=== PATIENT | female | born 1965 | race Caucasian/White ===

== ENCOUNTER → 2016-10-06 | Outpatient (CLI) | payer OTHER ==
[~2016-10-06] MED LIST: CYCL10TA PO; FIOR1CAP PO; HYDR12.55 PO; IMIT6INJ SC; METH750T PO; NAPR220C PO; TRAMADOL PO; XOLA150S SC
--- NOTE | 2016-10-08 00:27 | ECWPNPC ---
PATIENT NAME: CARMEN RODRIGUEZ : 1965 GENDER: FEMALE VISIT DATE: 10/06/2016 DISCHARGE DATE: 10/06/16 1100 VISIT LOCKED DATE TIME: PHYSICIAN: LEANDER ROSE RESOURCE: LEANDER ROSE REASON FOR APPOINTMENT 1. DISCUSS PT HISTORY OF PRESENT ILLNESS HISTORY OF PRESENT ILLNESS: PAIN THE PATIENT DESCRIBES THE PAIN... FALL RISK SCREENING: SCREENING :NO FALLS IN THE PAST YEAR TODAY'S VISIT: NOTES: RATES PAIN TODAY 8/10. PAIN CENTERED IN LOWER BACK WITH RADIATION DOWN LEG WHILE STANDING. IS MOSTLY PRESENT IN LOW BACK WHEN SEATED. PAIN IS CAUSING POOR SLEEP. NO LOSS OF BOWEL OR BLADDER CONTOL. IS HAVING SIGNIFICANT DIFFICULTY WITH GOING ABOUT ACTIVITIES OF DAILY LIVING.. CURRENT MEDICATIONS TAKING HYDROCHLOROTHIAZIDE 25 MG TABLET 1 TABLET ORALLY EVERY OTHER DAY TAKING XOLAIR 150 MG SOLUTION RECONSTITUTED SUBCUTANEOUS MONTHLY TAKING IMITREX 6 MG/0.5ML SOLUTION SUBCUTANEOUS DIRECTED TAKING ETODOLAC 400 MG TABLET 1 CAPSULE ORALLY TWICE A DAY TAKING ATORVASTATIN CALCIUM 10 MG TABLET 1 TABLET ORALLY ONCE A DAY TAKING [id number] 50-325-40 MG CAPSULE 1 CAPSULE NEEDED ORALLY EVERY 4 HRS TAKING FLUTICASONE PROPIONATE 50 MCG/ACT SUSPENSION 1 SPRAY IN EACH NOSTRIL NASALLY ONCE A DAY TAKING DEPAKOTE 250 MG TABLET DELAYED RELEASE ORALLY TWICE A DAY TAKING TRAMADOL HCL 50 MG TABLET 1 TABLET ORALLY EVERY 6 HRS PRN PAIN MDD=4 TAKING TYLENOL SINUS SEVERE 5-325-200 MG TABLET 2 TABLETS NEEDED ORALLY EVERY 4 HRS TAKING TIZANIDINE HCL 4 MG TABLET 1 TABLET NEEDED ORALLY BEFORE BEDTIME NOT-TAKING FIORICET 50-300-40 MG CAPSULE 1 CAPSULE NEEDED ORALLY DIRECTED DISCONTINUED NORTRIPTYLINE HCL 10 MG CAPSULE 1 CAPSULE ORALLY ONCE A DAY DISCONTINUED VALIUM 5 MG TABLET 1 TABLET ORALLY TAKE ONE TAB AT BEDTIME MDD=1 DISCONTINUED CYCLOBENZAPRINE HCL 10 MG TABLET 1 TABLET ORALLY THREE TIMES A DAY NEEDED DISCONTINUED TRAMADOL HCL 50 MG TABLET 1-2 TABLETS ORALLY EVERY 6 HRS PRN AIN MDD=4 MEDICATION LIST REVIEWED AND RECONCILED WITH THE PATIENT PAST MEDICAL HISTORY MIGRAINES ASTHMA SINUS/PULMONARY INFECTIONS ALLERGIES MILK: DYSPNEA ENVIRONMENTAL: DYSPNEA TOPAMAX: JOINT ACHES LEVAQUIN: ANAPHYLAXIS SOCIAL HISTORY GENERAL: TOBACCO USE ARE YOU A:NONSMOKER LEARNING BARRIERS / SPECIAL NEEDS ORIENTED TO PLAN OF CARE: PATIENT, PAIN MANAGEMENT PATIENT, ORIENTED TO PLAN OF CARE: PATIENT, PAIN MANAGEMENT PATIENT. NEW PATIENT PAIN DIARY TODAY'S VISITNOTES FROM 0-10, WHAT LEVEL IS YOUR PAIN TODAY?0 PAIN CLINIC PFS, CLERGY, PUBLIC HEALTH REFERRALS PFS REFERRAL NEEDED?NO CLERGY REFERRAL NEEDED?NO PUBLIC HEALTH REFERRAL NEEDED?NO WAS THE PROVIDER NOTIFIED OF ANY PERTINENT INFO?NO PFS REFERRAL NEEDED?NO CLERGY REFERRAL NEEDED?NO PUBLIC HEALTH REFERRAL NEEDED?NO WAS THE PROVIDER NOTIFIED OF ANY PERTINENT INFO?NO REVIEW OF SYSTEMS CONSTITUTIONAL: ANY CHANGE IN YOUR MEDICAL CONDITION? NO . CHILLS NO . FEVER NO . INFECTION: DO YOU HAVE NEW INFECTIONS? NO BUT DOES HAVE INCREASED SINUS CONGESTION . DO YOU HAVE HISTORY OF MRSA? NO . MUSCULOSKELETAL: ANY NEW PATTERNS OF PAIN OR NUMBNESS? NO . GASTROENTEROLOGY: ANY NEW CHANGE IN BOWEL CONTROL? NO . GENITOURINARY: ANY NEW CHANGE IN BLADDER CONTROL? NO . IS THERE A CHANCE YOU COULD BE ? NO . HEMATOLOGY/LYMPH: DO YOU TAKE ANY BLOOD THINNERS? (FOR EXAMPLE- COUMADIN, PLAVIX, AGGRENOX, PLATEL, PRADAXA, OR XARELTO) NO . WHEN WAS YOUR LAST DOSE? DATE: TIME: . NEUROLOGY: HAVE YOU FALLEN IN THE PAST 6 MONTHS? YES . ANY NEW EXTREMITY NUMBNESS OR WEAKNESS? NO . CARDIOLOGY: DO YOU HAVE A PACEMAKER OR DEFIBRILLATOR? NO . RESPIRATORY: HAVE YOU BEEN SICK IN THE PAST WEEK? NO . FEVER NO . FLU LIKE SYMPTOMS? NO . COUGH NO . INTEGUMENTARY: DO YOU HAVE ANY RASHES OR OPEN SORES? NO . ALLERGIC/IMMUNO: ARE YOU ALLERGIC TO SHELLFISH OR IV DYE? NO . ANY NEW ALLERGIES? NO . PSYCHIATRIC: DO YOU HAVE THOUGHTS OF HURTING YOURSELF OR SOMEONE ELSE? NO . ARE YOU ABUSED, NEGLECTED, OR IN AN UNSAFE ENVIRONMENT? NO . ENDOCRINOLOGY: ARE YOU DIABETIC? NO . OTHER: DO YOU NEED ANY PRESCRIPTIONS? YES . IF YES, PLEASE LIST: TRAMADOL . ANY NEW PROBLEMS WITH YOUR MEDICATIONS? NO . WHEN DID YOU LAST EAT? ____ . WHEN DID YOU LAST DRINK? ____ . WHAT DID YOU LAST DRINK? ____ . NAME OF PERSON DRIVING YOU HOME? ____ . DO YOU HAVE ANY OTHER QUESTIONS OR CONCERNS NO . REVIEWED BY: PROVIDER: LEANDER CHAPAP . VITAL SIGNS WT 183.6 LBS, HT 62 IN, BMI 33.58 INDEX, BP 129/83 MM HG, HR 94 /MIN, RR 16 /MIN, TEMP 96.0 F, OXYGEN SAT % 96, NA INITIALS TL 1015, REVIEWED BY: CM. EXAMINATION GENERAL EXAMINATION: PSYCHALERT , ORIENTED X 3 , APPROPRIATE MOOD AND AFFECT . LUNGS:CLEAR TO AUSCULTATION BILATERALLY. HEART:HEART RATE REGULAR. MUSCULOSKELETAL:MUSCLE STRENGTH TESTING 5/5 BILATERAL UPPER AND LOWER EXTREMITIES. EXQUISITE TENDERNESS OVER LUMBAR INCISION. EXQUISITE TENDERNESS OVER RIGHT SIJ. TPI OVER RIGHT SACRUM. . 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 START GABAPENTIN TWICE A DAY FOR SHARP SHOOTING ELECTRICAL PAIN UNTIL INJECTION IS FINISHED. CLINICAL NOTES: ISTOP REGISTRY REVIEWED AND DEMNOSTRATES COMPLLIANCE. BRINGS IN MEDICATIONS WHICH IS APPROPRIATE FOR WHAT WAS DISPENSED. RECENT URINE TOXICOLOGY REVIEWED. NO UNAUTHORIZED MEDICATIONS. NO ILLICIT SUBSTANCES AND PRESCRIBED MEDICATIONS WERE PRESENT. PREVENTIVE MEDICINE PAIN CLINIC TEACHING: MEDICATIONS GABAPENTIN- RESTARTING THIS MED. . PROCEDURE TEACHING DISCUSSED WITH PATIENT SCAR NEUROMA PROCEDURE. PROCEDURE CODES FA211 ESTABILISHED PATIENT [facility] CHARGE DISPOSITION & COMMUNICATION FOLLOW UP AFTER INJECTION - SCHEDULE DANIELLE INJECTION (REASON: CHECK AUTH FOR SCAR NEUROMA INJECTION) ELECTRONICALLY SIGNED BY JOSE LEWIS ON 10/07/2016 AT 11:59 AM EDT DISCLAIMER : THIS IS A VISIT SUMMARY EXTRACTED FROM THE [employer] CHART. IT IS NOT A COPY OF THE [employer] PROGRESS NOTE. MTDD
== END ==
LOC: M PAIN 10:00
PROVIDERS: ATTEND Nurse Practitioner Family
DX: Z09 Encounter for follow-up examination after completed treatment for conditions other than malignant neoplasm (principal); G89.29 Other chronic pain; M47.816 Spondylosis without myelopathy or radiculopathy, lumbar region; M79.1 Myalgia; M47.817 Spondylosis without myelopathy or radiculopathy, lumbosacral region; G58.9 Mononeuropathy, unspecified; G43.909 Migraine, unspecified, not intractable, without status migrainosus; J45.909 Unspecified asthma, uncomplicated; Z91.011 Allergy to milk products; Z88.8 Allergy status to other drugs, medicaments and biological substances; Z79.891 Long term (current) use of opiate analgesic; Z79.899 Other long term (current) drug therapy

== ENCOUNTER → 2016-10-14 | Outpatient (CLI) | payer OTHER ==
[~2016-10-14] MED LIST changes: +BUPIVACAINE HCL 0.25% 10 ML VIAL As Ordered ONE; +BUPIVACAINE HCL 0.25% 30 ML VIAL As Ordered ONE; +TRIAMCINOLONE ACETONIDE SUSP 40 MG/ML VIAL (J3301) As Ordered ONE; +diazePAM 5 MG TAB As Ordered ONE; +oxyCODONE 5MG TAB As Ordered ONE
--- NOTE | 2016-10-22 00:40 | ECWPNPC ---
PATIENT NAME: CARMEN RODRIGUEZ : 1965 GENDER: FEMALE VISIT DATE: 10/14/2016 DISCHARGE DATE: 10/14/16 1122 VISIT LOCKED DATE TIME: PHYSICIAN: CHRISTINE TRONCOSO RESOURCE: CHRISTINE TRONCOSO REASON FOR APPOINTMENT 1. SCAR NEUROMA INJ HISTORY OF PRESENT ILLNESS HISTORY OF PRESENT ILLNESS: PAIN THE PATIENT DESCRIBES THE PAIN... FALL RISK SCREENING: SCREENING :NO FALLS IN THE PAST YEAR CURRENT MEDICATIONS TAKING HYDROCHLOROTHIAZIDE 25 MG TABLET 1 TABLET ORALLY EVERY OTHER DAY, NOTES: 10-13-162199 TAKING XOLAIR 150 MG SOLUTION RECONSTITUTED SUBCUTANEOUS MONTHLY, NOTES: 10-01-16 TAKING IMITREX 6 MG/0.5ML SOLUTION SUBCUTANEOUS DIRECTED, NOTES: NONE TAKING ATORVASTATIN CALCIUM 10 MG TABLET 1 TABLET ORALLY ONCE A DAY, NOTES: 10-13-162199 TAKING [id number] 50-325-40 MG CAPSULE 1 CAPSULE NEEDED ORALLY EVERY 4 HRS, NOTES: 10-13-162199 TAKING FLUTICASONE PROPIONATE 50 MCG/ACT SUSPENSION 1 SPRAY IN EACH NOSTRIL NASALLY ONCE A DAY, NOTES: 10-13-162199 TAKING DEPAKOTE 250 MG TABLET DELAYED RELEASE ORALLY TWICE A DAY, NOTES: 10-13-162199 TAKING TYLENOL SINUS SEVERE 5-325-200 MG TABLET 2 TABLETS NEEDED ORALLY EVERY 4 HRS, NOTES: 10-13-162199 TAKING TIZANIDINE HCL 4 MG TABLET 1 TABLET NEEDED ORALLY BEFORE BEDTIME, NOTES: 10-13-162199 TAKING TRAMADOL HCL 50 MG TABLET 1 TABLET ORALLY EVERY 6 HRS PRN PAIN MDD=4, NOTES: 10-13-162199 TAKING ETODOLAC 400 MG TABLET 1 CAPSULE ORALLY TWICE A DAY, NOTES: 10-13-162199 TAKING GABAPENTIN 300 MG CAPSULE 1 CAPSULE ORALLY BID, NOTES: 10-13-162199 DISCONTINUED FIORICET 50-300-40 MG CAPSULE 1 CAPSULE NEEDED ORALLY DIRECTED MEDICATION LIST REVIEWED AND RECONCILED WITH THE PATIENT PAST MEDICAL HISTORY MIGRAINES ASTHMA SINUS/PULMONARY INFECTIONS ALLERGIES MILK: DYSPNEA ENVIRONMENTAL: DYSPNEA TOPAMAX: JOINT ACHES LEVAQUIN: ANAPHYLAXIS SOCIAL HISTORY GENERAL: TOBACCO USE ARE YOU A:NONSMOKER LEARNING BARRIERS / SPECIAL NEEDS ORIENTED TO PLAN OF CARE: PATIENT, PAIN MANAGEMENT PATIENT, ORIENTED TO PLAN OF CARE: PATIENT, PAIN MANAGEMENT PATIENT. NEW PATIENT PAIN DIARY TODAY'S VISITNOTES FROM 0-10, WHAT LEVEL IS YOUR PAIN TODAY?0 PAIN CLINIC PFS, CLERGY, PUBLIC HEALTH REFERRALS PFS REFERRAL NEEDED?NO CLERGY REFERRAL NEEDED?NO PUBLIC HEALTH REFERRAL NEEDED?NO WAS THE PROVIDER NOTIFIED OF ANY PERTINENT INFO?NO PFS REFERRAL NEEDED?NO CLERGY REFERRAL NEEDED?NO PUBLIC HEALTH REFERRAL NEEDED?NO WAS THE PROVIDER NOTIFIED OF ANY PERTINENT INFO?NO REVIEW OF SYSTEMS CONSTITUTIONAL: ANY CHANGE IN YOUR MEDICAL CONDITION? NO . CHILLS NO . FEVER NO . INFECTION: DO YOU HAVE NEW INFECTIONS? NO . DO YOU HAVE HISTORY OF MRSA? NO . MUSCULOSKELETAL: ANY NEW PATTERNS OF PAIN OR NUMBNESS? NO . GASTROENTEROLOGY: ANY NEW CHANGE IN BOWEL CONTROL? NO . GENITOURINARY: ANY NEW CHANGE IN BLADDER CONTROL? NO . IS THERE A CHANCE YOU COULD BE ? NO . HEMATOLOGY/LYMPH: DO YOU TAKE ANY BLOOD THINNERS? (FOR EXAMPLE- COUMADIN, PLAVIX, AGGRENOX, PLATEL, PRADAXA, OR XARELTO) NO . WHEN WAS YOUR LAST DOSE? DATE: TIME: . NEUROLOGY: HAVE YOU FALLEN IN THE PAST 6 MONTHS? YES . ANY NEW EXTREMITY NUMBNESS OR WEAKNESS? NO . CARDIOLOGY: DO YOU HAVE A PACEMAKER OR DEFIBRILLATOR? NO . RESPIRATORY: HAVE YOU BEEN SICK IN THE PAST WEEK? NO . FEVER NO . FLU LIKE SYMPTOMS? NO . COUGH NO . INTEGUMENTARY: DO YOU HAVE ANY RASHES OR OPEN SORES? NO . ALLERGIC/IMMUNO: ARE YOU ALLERGIC TO SHELLFISH OR IV DYE? NO . ANY NEW ALLERGIES? NO . PSYCHIATRIC: DO YOU HAVE THOUGHTS OF HURTING YOURSELF OR SOMEONE ELSE? NO . ARE YOU ABUSED, NEGLECTED, OR IN AN UNSAFE ENVIRONMENT? NO . ENDOCRINOLOGY: ARE YOU DIABETIC? NO . OTHER: DO YOU NEED ANY PRESCRIPTIONS? NO . IF YES, PLEASE LIST: ____ . ANY NEW PROBLEMS WITH YOUR MEDICATIONS? NO . WHEN DID YOU LAST EAT? 10/13/16 . WHEN DID YOU LAST DRINK? 10/13/16 . WHAT DID YOU LAST DRINK? WATER . NAME OF PERSON DRIVING YOU HOME? MANDY . DO YOU HAVE ANY OTHER QUESTIONS OR CONCERNS NO . REVIEWED BY: PROVIDER: . VITAL SIGNS WT 183 LBS, HT 62 IN, BMI 33.47 INDEX, BP 112/66 MM HG, HR 83 /MIN, RR 18 /MIN, TEMP 96.5 F, OXYGEN SAT % 97, NA INITIALS HS, REVIEWED BY: CM. ASSESSMENTS LUMBAR SPINE INCISION NEUROMA. TREATMENT OTHERS NOTES: PRE PROCEDURE DIAGNOSIS LUMBAR SPINE INCISION SCAR NEUROMA. POST PROCEDURE DIAGNOSIS LUMBAR SPINE INCISION SCAR NEUROMA.PROCEDURE LUMBAR SPINE INCISION NEUROMA INJECTION. 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 ANESTHESIA LOCAL. PRE PROCEDURE NOTE THE PATIENT HAS A HISTORY OF CHRONIC PAIN AT THE LUMBAR SPINE AREA. I EVALUATE THE PATIENT AND REVIEWED THE CHART. THERE IS EVIDENCE OF SCAR NEUROMA OVER THE LUMBAR SPINE. I WENT OVER THE RISKS, ALTERNATIVES, AND BENEFITS ASSOCIATED WITH THIS PROCEDURE. THE PATIENT WOULD LIKE TO PROCEED AND GIVE CONSENT TO PERFORMED THE PROCEDURE. THE PATIENT DENIES UNEXPLAINABLE WEIGHT LOSS, FEVER, CHILLS, OR NEW CHANGES IN URINARY OR BOWEL CONTROL. DESCRIPTION OF PROCEDURE THE PATIENT WAS BROUGHT TO THE PROCEDURE ROOM AND PLACED IN THE SITTING POSITION. THE AREA WAS CLEANED WITH ALCOHOL. THE PROCEDURE WAS DONE USING ASEPTIC STERILE TECHNIQUE. I CHECKED LATERALITY AND THE LEVEL WHERE THE PROCEDURE WAS GOING TO BE PERFORMED WITH THE PATIENT AND THE SUPPORTING STAFF AT THE MOMENT OF THE TIME OUT IN THE PROCEDURE ROOM. USING A 25-GAUGE NEEDLE, PATIENT WAS INJECTION IN THE LUMBAR SPINE AREA AT THE SCAR NEUROMA WITH A TOTAL OF 40 ML OF BUPIVACAINE 0.25% AND KENALOG 40 MG. THERE WAS NO EVIDENCE OF BLOOD, PARESTHESIA OR CEREBROSPINAL FLUID DURING THE PROCEDURE. THE PATIENT WAS SENT TO THE RECOVERY ROOM. THE PATIENT WAS MOVING THE EXTREMITIES AND DOING WELL. THERE WAS NO COMPLICATION DURING THE PROCEDURE. POST PROCEDURE NOTE THE PATIENT WILL BE SEEN IN A FOLLOW UP IN THE NEXT FEW WEEKS. INSTRUCTIONS WERE GIVEN, QUESTIONS WERE ANSWERED, AND THE PATIENT EXPRESSED UNDERSTANDING AND AGREES WITH THE PLAN. I, FAIZAN MARINO, DOCUMENTED THE ABOVE INFORMATION ACTING A SCRIBE FOR DR. TRONCOSO. I, DR. TRONCOSO, HAVE REVIEWED THE ABOVE DOCUMENT, SCRIBED BY FAIZAN MARINO, AND I VERIFY THAT IT IS ACCURATE . DISPOSITION & COMMUNICATION FOLLOW UP 3 WEEKS ELECTRONICALLY SIGNED BY CHRISTINE TRONCOSO MD ON 10/21/2016 AT 01:14 PM EDT DISCLAIMER : THIS IS A VISIT SUMMARY EXTRACTED FROM THE [employer] CHART. IT IS NOT A COPY OF THE [employer] PROGRESS NOTE. LUIS F
== END ==
LOC: M PAIN 09:00
PROVIDERS: ATTEND Anesthesiology
DX: G89.29 Other chronic pain (principal); L90.5 Scar conditions and fibrosis of skin; G58.9 Mononeuropathy, unspecified; G43.909 Migraine, unspecified, not intractable, without status migrainosus; J45.909 Unspecified asthma, uncomplicated; Z91.011 Allergy to milk products; Z88.8 Allergy status to other drugs, medicaments and biological substances; Z79.891 Long term (current) use of opiate analgesic; Z79.899 Other long term (current) drug therapy

== ENCOUNTER → 2016-11-04 | Outpatient (CLI) | payer OTHER ==
[~2016-11-04] MED LIST changes: -BUPIVACAINE HCL 0.25% 10 ML VIAL As Ordered ONE; -BUPIVACAINE HCL 0.25% 30 ML VIAL As Ordered ONE; -TRIAMCINOLONE ACETONIDE SUSP 40 MG/ML VIAL (J3301) As Ordered ONE; -diazePAM 5 MG TAB As Ordered ONE; -oxyCODONE 5MG TAB As Ordered ONE
--- NOTE | 2016-11-14 00:23 | ECWPNPC ---
PATIENT NAME: CARMEN RODRIGUEZ : 1965 GENDER: FEMALE VISIT DATE: 11/04/2016 DISCHARGE DATE: 11/04/16 1606 VISIT LOCKED DATE TIME: PHYSICIAN: LEANDER ROSE RESOURCE: LEANDER ROSE REASON FOR APPOINTMENT 1. F/UP POST PROCEDURE-SCAR NEUROMA INJ HISTORY OF PRESENT ILLNESS HISTORY OF PRESENT ILLNESS: PAIN THE PATIENT DESCRIBES THE PAIN... FALL RISK SCREENING: SCREENING :NO FALLS IN THE PAST YEAR TODAY'S VISIT: NOTES: RATES PAIN TODAY 6/10. IS S/P SCAR NEUROMA INJECTION LOW BACK ON 10/14/16.THIS WAS HELPFUL AT DECREASING PAIN. PAIN RADIATING TO RIGHT BUTTUCK AND LEG IS NOT BAD.AT TIME OF PROCEDURE DR TRONCOSO SUGGESTED REFRRAL TO [facility] FOR [facility] THERAPY. CURRENT MEDICATIONS TAKING HYDROCHLOROTHIAZIDE 25 MG TABLET 1 TABLET ORALLY EVERY OTHER DAY TAKING XOLAIR 150 MG SOLUTION RECONSTITUTED SUBCUTANEOUS MONTHLY TAKING IMITREX 6 MG/0.5ML SOLUTION SUBCUTANEOUS DIRECTED TAKING ATORVASTATIN CALCIUM 10 MG TABLET 1 TABLET ORALLY ONCE A DAY TAKING [id number]-[id number]-[id number] 50-325-40 MG CAPSULE 1 CAPSULE NEEDED ORALLY EVERY 4 HRS TAKING FLUTICASONE PROPIONATE 50 MCG/ACT SUSPENSION 1 SPRAY IN EACH NOSTRIL NASALLY ONCE A DAY TAKING DEPAKOTE 250 MG TABLET DELAYED RELEASE ORALLY TWICE A DAY TAKING TYLENOL SINUS SEVERE 5-325-200 MG TABLET 2 TABLETS NEEDED ORALLY EVERY 4 HRS TAKING TIZANIDINE HCL 4 MG TABLET 1 TABLET NEEDED ORALLY BEFORE BEDTIME TAKING TRAMADOL HCL 50 MG TABLET 1 TABLET ORALLY EVERY 6 HRS PRN PAIN MDD=4 TAKING GABAPENTIN 300 MG CAPSULE 1 CAPSULE ORALLY BID TAKING MAXALT 10 MG TABLET 1 TABLET NEEDED ONE TIME ORALLY ONCE A DAY TAKING NASONEX 50 MCG/ACT SUSPENSION 2 SPRAYS IN EACH NOSTRIL NASALLY ONCE A DAY TAKING VENTOLIN HFA 108 (90 BASE) MCG/ACT AEROSOL SOLUTION 2 PUFFS NEEDED INHALATION EVERY 4 HRS NOT-TAKING ETODOLAC 400 MG TABLET 1 CAPSULE ORALLY TWICE A DAY MEDICATION LIST REVIEWED AND RECONCILED WITH THE PATIENT PAST MEDICAL HISTORY MIGRAINES ASTHMA SINUS/PULMONARY INFECTIONS ALLERGIES MILK: DYSPNEA ENVIRONMENTAL: DYSPNEA TOPAMAX: JOINT ACHES LEVAQUIN: ANAPHYLAXIS SOCIAL HISTORY GENERAL: PAIN CLINIC PFS, CLERGY, PUBLIC HEALTH REFERRALS CLERGY REFERRAL NEEDED?NO WAS THE PROVIDER NOTIFIED OF ANY PERTINENT INFO?NO PFS REFERRAL NEEDED?NO PUBLIC HEALTH REFERRAL NEEDED?NO PATIENT: ____. REVIEW OF SYSTEMS CONSTITUTIONAL: ANY CHANGE IN YOUR MEDICAL CONDITION? NO . CHILLS NO . FEVER NO . INFECTION: DO YOU HAVE NEW INFECTIONS? NO . DO YOU HAVE HISTORY OF MRSA? NO . MUSCULOSKELETAL: ANY NEW PATTERNS OF PAIN OR NUMBNESS? NO . GASTROENTEROLOGY: ANY NEW CHANGE IN BOWEL CONTROL? NO . GENITOURINARY: ANY NEW CHANGE IN BLADDER CONTROL? NO . IS THERE A CHANCE YOU COULD BE ? NO . HEMATOLOGY/LYMPH: DO YOU TAKE ANY BLOOD THINNERS? (FOR EXAMPLE- COUMADIN, PLAVIX, AGGRENOX, PLATEL, PRADAXA, OR XARELTO) NO . WHEN WAS YOUR LAST DOSE? DATE: TIME: . NEUROLOGY: HAVE YOU FALLEN IN THE PAST 6 MONTHS? YES . ANY NEW EXTREMITY NUMBNESS OR WEAKNESS? NO . CARDIOLOGY: DO YOU HAVE A PACEMAKER OR DEFIBRILLATOR? NO . RESPIRATORY: HAVE YOU BEEN SICK IN THE PAST WEEK? NO . FEVER NO . FLU LIKE SYMPTOMS? NO . COUGH NO . INTEGUMENTARY: DO YOU HAVE ANY RASHES OR OPEN SORES? NO . ALLERGIC/IMMUNO: ARE YOU ALLERGIC TO SHELLFISH OR IV DYE? NO . ANY NEW ALLERGIES? NO . PSYCHIATRIC: DO YOU HAVE THOUGHTS OF HURTING YOURSELF OR SOMEONE ELSE? NO . ARE YOU ABUSED, NEGLECTED, OR IN AN UNSAFE ENVIRONMENT? NO . ENDOCRINOLOGY: ARE YOU DIABETIC? NO . OTHER: DO YOU NEED ANY PRESCRIPTIONS? YES . IF YES, PLEASE LIST: TIZANIDINE, GABAPENTIN . ANY NEW PROBLEMS WITH YOUR MEDICATIONS? NO . WHEN DID YOU LAST EAT? ____ . WHEN DID YOU LAST DRINK? ____ . WHAT DID YOU LAST DRINK? ____ . NAME OF PERSON DRIVING YOU HOME? ____ . DO YOU HAVE ANY OTHER QUESTIONS OR CONCERNS NO . REVIEWED BY: PROVIDER: LEANDER MADRID . VITAL SIGNS WT 184 LBS, HT 62 IN, BMI 33.65 INDEX, BP 140/87 MM HG, HR 77 /MIN, RR 18 /MIN, TEMP 98.0 F, OXYGEN SAT % 97, NA INITIALS AW 1524, REVIEWED BY: CS. EXAMINATION GENERAL EXAMINATION: PSYCHALERT , ORIENTED X 3 , APPROPRIATE MOOD AND AFFECT . LUNGS:CLEAR TO AUSCULTATION BILATERALLY. HEART:HEART RATE REGULAR. MUSCULOSKELETAL:MUSCLE STRENGTH TESTING 5/5 BILATERAL UPPER AND LOWER EXTREMITIES.MODERATE TENDERNESS OVER LUMBAR INCISION. MILD-MODERATE TENDERNESS OVER RIGHT SIJ. TPI OVER RIGHT SACRUM. ABLE TO RISE EASILY TO STANDING POSITION. POSTURE UPRIGHT. GAIT MILDLY ANTALGIC. 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 WALK TOLERATED. REFERRAL TO:COMPREHENSIVE PAIN MED [facility] REASON:REFERRAL FOR SCAR NEUROMA CRYOTHERAPY TO LUMBAR INCISION RIGHT SIDE. STEROID INJECTIONS PROVIDE VERY TEMPORARYRELIEF PROCEDURE CODES FA211 ESTABILISHED PATIENT [facility] CHARGE DISPOSITION & COMMUNICATION FOLLOW UP END November ELECTRONICALLY SIGNED BY JOSE LEWIS ON 11/13/2016 AT 02:02 PM EDT DISCLAIMER : THIS IS A VISIT SUMMARY EXTRACTED FROM THE [employer] CHART. IT IS NOT A COPY OF THE [employer] PROGRESS NOTE. LUIS F
== END ==
LOC: M PAIN 14:40
PROVIDERS: ATTEND Nurse Practitioner Family
DX: G89.29 Other chronic pain (principal); G58.9 Mononeuropathy, unspecified; M47.816 Spondylosis without myelopathy or radiculopathy, lumbar region; M79.1 Myalgia; M47.817 Spondylosis without myelopathy or radiculopathy, lumbosacral region; G43.909 Migraine, unspecified, not intractable, without status migrainosus; J45.909 Unspecified asthma, uncomplicated; Z91.011 Allergy to milk products; Z88.8 Allergy status to other drugs, medicaments and biological substances; Z79.891 Long term (current) use of opiate analgesic; Z79.899 Other long term (current) drug therapy

== ENCOUNTER → 2016-12-18 | Outpatient (CLI) | payer OTHER ==
--- NOTE | 2016-12-23 00:03 | ECWPNPC ---
PATIENT NAME: CARMEN RODRIGUEZ : 1965 GENDER: FEMALE VISIT DATE: 12/18/2016 DISCHARGE DATE: 12/18/16 0946 VISIT LOCKED DATE TIME: PHYSICIAN: LEANDER ROSE RESOURCE: LEANDER ROSE REASON FOR APPOINTMENT 1. LOW BACK HISTORY OF PRESENT ILLNESS HISTORY OF PRESENT ILLNESS: PAIN THE PATIENT DESCRIBES THE PAIN... FALL RISK SCREENING: SCREENING :TWO OR MORE FALLS WITH INJURY IN THE PAST YEAR FELL DOWN STEPS, LOST BALANCE AND WENT DOWN WITHOUT INJURY TODAY'S VISIT: NOTES: RATES PAIN LEVEL TODAY 7/10. DESCRIBES PAIN SHARP AND SHOOTING. PAIN IN CENTERED IN LOW BACK WITH RADIATION TO THE RIGHT BUTTUCK AND UPPER POSTERIOR THIGH. NOTES SCAR AREA LOW BACK IS AGGRAVATED AFTER A TRIP AND PROLONG WALKING.. CURRENT MEDICATIONS TAKING HYDROCHLOROTHIAZIDE 25 MG TABLET 1 TABLET ORALLY EVERY OTHER DAY TAKING XOLAIR 150 MG SOLUTION RECONSTITUTED SUBCUTANEOUS MONTHLY TAKING IMITREX 6 MG/0.5ML SOLUTION SUBCUTANEOUS DIRECTED TAKING ATORVASTATIN CALCIUM 10 MG TABLET 1 TABLET ORALLY ONCE A DAY TAKING [id number] 50-325-40 MG CAPSULE 1 CAPSULE NEEDED ORALLY EVERY 4 HRS TAKING FLUTICASONE PROPIONATE 50 MCG/ACT SUSPENSION 1 SPRAY IN EACH NOSTRIL NASALLY ONCE A DAY TAKING DEPAKOTE 250 MG TABLET DELAYED RELEASE ORALLY TWICE A DAY TAKING TYLENOL SINUS SEVERE 5-325-200 MG TABLET 2 TABLETS NEEDED ORALLY EVERY 4 HRS TAKING TRAMADOL HCL 50 MG TABLET 1 TABLET ORALLY EVERY 6 HRS PRN PAIN MDD=4 TAKING MAXALT 10 MG TABLET 1 TABLET NEEDED ONE TIME ORALLY ONCE A DAY TAKING NASONEX 50 MCG/ACT SUSPENSION 2 SPRAYS IN EACH NOSTRIL NASALLY ONCE A DAY TAKING VENTOLIN HFA 108 (90 BASE) MCG/ACT AEROSOL SOLUTION 2 PUFFS NEEDED INHALATION EVERY 4 HRS TAKING TIZANIDINE HCL 4 MG TABLET 1 TABLET NEEDED ORALLY BEFORE BEDTIME TAKING GABAPENTIN 300 MG CAPSULE 1 CAPSULE ORALLY BID TAKING AMOXICILLIN-POT CLAVULANATE 875-125 MG TABLET 1 TABLET ORALLY EVERY 12 HRS TAKING DUONEB NOT-TAKING ETODOLAC 400 MG TABLET 1 CAPSULE ORALLY TWICE A DAY MEDICATION LIST REVIEWED AND RECONCILED WITH THE PATIENT PAST MEDICAL HISTORY MIGRAINES ASTHMA SINUS/PULMONARY INFECTIONS ALLERGIES MILK: DYSPNEA ENVIRONMENTAL: DYSPNEA TOPAMAX: JOINT ACHES LEVAQUIN: ANAPHYLAXIS REVIEW OF SYSTEMS CONSTITUTIONAL: ANY CHANGE IN YOUR MEDICAL CONDITION? YES PT HAS A COLD . CHILLS NO . FEVER YES . INFECTION: DO YOU HAVE NEW INFECTIONS? NO . DO YOU HAVE HISTORY OF MRSA? NO . MUSCULOSKELETAL: ANY NEW PATTERNS OF PAIN OR NUMBNESS? NO . GASTROENTEROLOGY: ANY NEW CHANGE IN BOWEL CONTROL? NO . GENITOURINARY: ANY NEW CHANGE IN BLADDER CONTROL? NO . IS THERE A CHANCE YOU COULD BE ? NO . HEMATOLOGY/LYMPH: DO YOU TAKE ANY BLOOD THINNERS? (FOR EXAMPLE- COUMADIN, PLAVIX, AGGRENOX, PLATEL, PRADAXA, OR XARELTO) NO . WHEN WAS YOUR LAST DOSE? DATE: TIME: . NEUROLOGY: HAVE YOU FALLEN IN THE PAST 6 MONTHS? NO . ANY NEW EXTREMITY NUMBNESS OR WEAKNESS? NO . CARDIOLOGY: DO YOU HAVE A PACEMAKER OR DEFIBRILLATOR? NO . RESPIRATORY: HAVE YOU BEEN SICK IN THE PAST WEEK? NO . FEVER NO . FLU LIKE SYMPTOMS? NO . COUGH YES WITH YELLOW PRODUCTION. ONSET 5 DAYS AGO - NOW ON ABX . INTEGUMENTARY: DO YOU HAVE ANY RASHES OR OPEN SORES? NO . ALLERGIC/IMMUNO: ARE YOU ALLERGIC TO SHELLFISH OR IV DYE? NO . ANY NEW ALLERGIES? NO . PSYCHIATRIC: DO YOU HAVE THOUGHTS OF HURTING YOURSELF OR SOMEONE ELSE? NO . ARE YOU ABUSED, NEGLECTED, OR IN AN UNSAFE ENVIRONMENT? NO . ENDOCRINOLOGY: ARE YOU DIABETIC? NO . OTHER: DO YOU NEED ANY PRESCRIPTIONS? NO . IF YES, PLEASE LIST: ____ . ANY NEW PROBLEMS WITH YOUR MEDICATIONS? NO . WHEN DID YOU LAST EAT? ____ . WHEN DID YOU LAST DRINK? ____ . WHAT DID YOU LAST DRINK? ____ . NAME OF PERSON DRIVING YOU HOME? ____ . DO YOU HAVE ANY OTHER QUESTIONS OR CONCERNS NO . REVIEWED BY: PROVIDER: LEANDER MADRID . VITAL SIGNS WT 184 LBS, HT 62 IN, BMI 33.65 INDEX, BP 131/80 MM HG, HR 96 /MIN, RR 18 /MIN, TEMP 98.3 F, OXYGEN SAT % 96, REVIEWED BY: VD. EXAMINATION GENERAL EXAMINATION: PSYCHALERT , ORIENTED X 3 , APPROPRIATE MOOD AND AFFECT . LUNGS:CLEAR TO AUSCULTATION BILATERALLY. HEART:HEART RATE REGULAR. MUSCULOSKELETAL:MUSCLE STRENGTH TESTING 5/5 BILATERAL UPPER AND LOWER EXTREMITIES.MODERATE TENDERNESS OVER LUMBAR INCISION. MILD-MODERATE TENDERNESS OVER RIGHT SIJ. TPI OVER RIGHT SACRUM. ABLE TO RISE EASILY TO STANDING POSITION. POSTURE UPRIGHT. GAIT MILDLY ANTALGIC. 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 . WILL REQUEST SCAR NEUROMA INJECTION RIGHT LUMBAR REGION. CONTINUE CURRENT MEDS. PREVENTIVE MEDICINE SCAR NEUROMA INJECTION INFORMATION REVIET.THU WITH. PROCEDURE CODES [id number] ESTABILISHED PATIENT [facility] FAC[facility] CHARGE DISPOSITION & COMMUNICATION FOLLOW UP SCHED INJECTION 2 WEEKS OUT(FINISHING ABX) (REASON: WILL REQUEST SCAR NEUROMA INJECTION RIGHT LUMBAR REGION) ELECTRONICALLY SIGNED BY JOSE LEWIS ON 12/22/2016 AT 02:17 PM EDT DISCLAIMER : THIS IS A VISIT SUMMARY EXTRACTED FROM THE [employer] CHART. IT IS NOT A COPY OF THE [employer] PROGRESS NOTE. LUIS F
== END ==
LOC: M PAIN 08:40
PROVIDERS: ATTEND Nurse Practitioner Family
DX: M47.816 Spondylosis without myelopathy or radiculopathy, lumbar region (principal); M79.1 Myalgia; M47.817 Spondylosis without myelopathy or radiculopathy, lumbosacral region; G58.9 Mononeuropathy, unspecified; Z87.891 Personal history of nicotine dependence; Z79.899 Other long term (current) drug therapy; Z79.2 Long term (current) use of antibiotics; Z91.011 Allergy to milk products; J30.89 Other allergic rhinitis; Z88.1 Allergy status to other antibiotic agents

== ENCOUNTER → 2017-01-02 | Outpatient (CLI) | payer OTHER ==
[~2017-01-02] MED LIST changes: +BUPIVACAINE HCL 0.25% 10 ML VIAL As Ordered ONE; +BUPIVACAINE HCL 0.25% 30 ML VIAL As Ordered ONE; +TRIAMCINOLONE ACETONIDE SUSP 40 MG/ML VIAL (J3301) As Ordered ONE; +diazePAM 5 MG TAB As Ordered ONE; +oxyCODONE 5MG TAB As Ordered ONE
--- NOTE | 2017-01-11 23:38 | ECWPNPC ---
PATIENT NAME: CARMEN RODRIGUEZ : 1965 GENDER: FEMALE VISIT DATE: 01/02/2017 DISCHARGE DATE: 01/02/17 1420 VISIT LOCKED DATE TIME: PHYSICIAN: CHRISTINE TRONCOSO RESOURCE: CHRISTINE TRONCOSO REASON FOR APPOINTMENT 1. SCAR NEUROMA HISTORY OF PRESENT ILLNESS HISTORY OF PRESENT ILLNESS: PAIN THE PATIENT DESCRIBES THE PAIN... FALL RISK SCREENING: SCREENING :NO FALLS IN THE PAST YEAR CURRENT MEDICATIONS TAKING HYDROCHLOROTHIAZIDE 25 MG TABLET 1 TABLET ORALLY EVERY OTHER DAY, NOTES: 12/31/16 TAKING XOLAIR 150 MG SOLUTION RECONSTITUTED SUBCUTANEOUS MONTHLY, NOTES: 12/31/16 TAKING IMITREX 6 MG/0.5ML SOLUTION SUBCUTANEOUS DIRECTED, NOTES: NONE RECENTLY TAKING ATORVASTATIN CALCIUM 10 MG TABLET 1 TABLET ORALLY ONCE A DAY, NOTES: 01/01/17 0800 TAKING [id number] 50-325-40 MG CAPSULE 1 CAPSULE NEEDED ORALLY EVERY 4 HRS, NOTES: NONE RECNTLY TAKING FLUTICASONE PROPIONATE 50 MCG/ACT SUSPENSION 1 SPRAY IN EACH NOSTRIL NASALLY ONCE A DAY, NOTES: 01/01/17@1800 TAKING DEPAKOTE 250 MG TABLET DELAYED RELEASE ORALLY TWICE A DAY, NOTES: 01/02/17@0800 TAKING TYLENOL SINUS SEVERE 5-325-200 MG TABLET 2 TABLETS NEEDED ORALLY EVERY 4 HRS, NOTES: NONE RECENTLY TAKING TRAMADOL HCL 50 MG TABLET 1 TABLET ORALLY EVERY 6 HRS PRN PAIN MDD=4, NOTES: 01/01/17@1800 TAKING MAXALT 10 MG TABLET 1 TABLET NEEDED ONE TIME ORALLY ONCE A DAY, NOTES: NONE RECENTLY TAKING NASONEX 50 MCG/ACT SUSPENSION 2 SPRAYS IN EACH NOSTRIL NASALLY ONCE A DAY, NOTES: NONE RECENTLY TAKING VENTOLIN HFA 108 (90 BASE) MCG/ACT AEROSOL SOLUTION 2 PUFFS NEEDED INHALATION EVERY 4 HRS, NOTES: 01/02/17@1000 TAKING TIZANIDINE HCL 4 MG TABLET 1 TABLET NEEDED ORALLY BEFORE BEDTIME, NOTES: 01/01/17@0700 TAKING GABAPENTIN 300 MG CAPSULE 1 CAPSULE ORALLY BID, NOTES: 12/30/16 TAKING DUONEB , NOTES: 01/01/17@0800 TAKING MUCINEX 600 MG TABLET EXTENDED RELEASE 1 TABLET NEEDED ORALLY EVERY 12 HRS, NOTES: 01/02/17@0800 NOT-TAKING AMOXICILLIN-POT CLAVULANATE 875-125 MG TABLET 1 TABLET ORALLY EVERY 12 HRS NOT-TAKING ETODOLAC 400 MG TABLET 1 CAPSULE ORALLY TWICE A DAY MEDICATION LIST REVIEWED AND RECONCILED WITH THE PATIENT PAST MEDICAL HISTORY MIGRAINES ASTHMA SINUS/PULMONARY INFECTIONS ALLERGIES MILK: DYSPNEA ENVIRONMENTAL: DYSPNEA TOPAMAX: JOINT ACHES LEVAQUIN: ANAPHYLAXIS SURGICAL HISTORY UMBILICAL HERNIA REPAIR 2010 3 SINUS SURGERIES [id number] REMOVAL OF CYST GENITAL AREA 2009 TONSILLECTOMY AND PARTIAL REMOVAL UVULA 2012 BACK SURGERY 2015 HOSPITALIZATION/MAJOR DIAGNOSTIC PROCEDURE ASTHMA RELATED SURGERIES REVIEW OF SYSTEMS CONSTITUTIONAL: ANY CHANGE IN YOUR MEDICAL CONDITION? NO . CHILLS NO . FEVER NO . INFECTION: DO YOU HAVE NEW INFECTIONS? NO . DO YOU HAVE HISTORY OF MRSA? NO . MUSCULOSKELETAL: ANY NEW PATTERNS OF PAIN OR NUMBNESS? NO . GASTROENTEROLOGY: ANY NEW CHANGE IN BOWEL CONTROL? NO . GENITOURINARY: ANY NEW CHANGE IN BLADDER CONTROL? NO . IS THERE A CHANCE YOU COULD BE ? NO . HEMATOLOGY/LYMPH: DO YOU TAKE ANY BLOOD THINNERS? (FOR EXAMPLE- COUMADIN, PLAVIX, AGGRENOX, PLATEL, PRADAXA, OR XARELTO) NO . WHEN WAS YOUR LAST DOSE? DATE: TIME: . NEUROLOGY: HAVE YOU FALLEN IN THE PAST 6 MONTHS? YES, FELL ON ICE WHILE CARRYING THINGS, THEN ALSO LOST BALANCE INSIDE AND FELL. INSIDE FALL NO MAJOR INJURIES TO BE TX'D. OUTSIDE FALL ON ICE, PT STATES SHE WAS TX'D @ [facility].&NBSP;. ANY NEW EXTREMITY NUMBNESS OR WEAKNESS? &NBSP;&NBSP; NO&NBSP;. CARDIOLOGY: DO YOU HAVE A PACEMAKER OR DEFIBRILLATOR? NO . RESPIRATORY: HAVE YOU BEEN SICK IN THE PAST WEEK? NO . FEVER NO . FLU LIKE SYMPTOMS? NO . COUGH NO . INTEGUMENTARY: DO YOU HAVE ANY RASHES OR OPEN SORES? NO . ALLERGIC/IMMUNO: ARE YOU ALLERGIC TO SHELLFISH OR IV DYE? NO . ANY NEW ALLERGIES? NO . PSYCHIATRIC: DO YOU HAVE THOUGHTS OF HURTING YOURSELF OR SOMEONE ELSE? NO . ARE YOU ABUSED, NEGLECTED, OR IN AN UNSAFE ENVIRONMENT? NO . ENDOCRINOLOGY: ARE YOU DIABETIC? NO . OTHER: DO YOU NEED ANY PRESCRIPTIONS? YES, TRAMADOL-S. WALKER . IF YES, PLEASE LIST: ____ . ANY NEW PROBLEMS WITH YOUR MEDICATIONS? NO . WHEN DID YOU LAST EAT? 01/01/17@1600 . WHEN DID YOU LAST DRINK? 01/02/17@0800 . WHAT DID YOU LAST DRINK? WATER . NAME OF PERSON DRIVING YOU HOME? ____ . DO YOU HAVE ANY OTHER QUESTIONS OR CONCERNS NO . REVIEWED BY: PROVIDER: . VITAL SIGNS WT 192.4 LBS, HT 62 IN, BMI 35.19 INDEX, BP 126/75 MM HG, HR 86 /MIN, RR 18 /MIN, TEMP 98.8 F, OXYGEN SAT % 96%, SAFE IN ENV? (Y/N) Y, NA INITIALS SC 12:04, REVIEWED BY: LS. 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 SUPERVISOR KOSHER DIETARY SERVICE: NONE. ANESTHESIA: LOCAL. PRE PROCEDURE NOTE THE PATIENT HAS A HISTORY OF CHRONIC PAIN AT THE RIGHT LOW BACK AREA. I EVALUATED THE PATIENT AND REVIEWED THE CHART. I WENT OVER THE RISKS, ALTERNATIVES, AND BENEFITS ASSOCIATED WITH THIS PROCEDURE. THE PATIENT WOULD LIKE TO PROCEED AND GIVE CONSENT TO PERFORMED THE PROCEDURE. THE PATIENT DENIES UNEXPLAINABLE WEIGHT LOSS, FEVER, CHILLS, OR NEW CHANGES IN URINARY OR BOWEL CONTROL.DESCRIPTION OF PROCEDURE THE PATIENT WAS BROUGHT TO THE PROCEDURE ROOM AND PLACED IN THE SUPINE POSITION. THE AREA WAS CLEANED WITH CHLOROPREP. THE PROCEDURE WAS DONE USING ASEPTIC STERILE TECHNIQUE. I CHECKED LATERALITY AND THE LEVEL WHERE THE PROCEDURE WAS GOING TO BE PERFORMED WITH THE PATIENT AND THE SUPPORTING STAFF AT THE MOMENT OF THE TIME OUT IN THE PROCEDURE ROOM. USING A 25-GAUGE NEEDLE, THE LEFT INGUINAL SCAR WAS INJECTED WITH A TOTAL OF 40 ML OF BUPIVACAINE 0.25% AND KENALOG 40 MG. THERE WAS NO EVIDENCE OF BLOOD, PARESTHESIA OR CEREBROSPINAL FLUID DURING THE PROCEDURE. THE PATIENT WAS SENT TO THE RECOVERY ROOM. THE PATIENT WAS MOVING THE EXTREMITIES AND DOING WELL. THERE WAS NO COMPLICATION DURING THE PROCEDURE. POST PROCEDURE NOTE THE PATIENT WILL BE SEEN IN A FOLLOW UP IN THE NEXT FEW WEEKS. INSTRUCTIONS WERE GIVEN, QUESTIONS WERE ANSWERED, AND THE PATIENT EXPRESSED UNDERSTANDING AND AGREES WITH THE PLAN. I, SUSAN RESTREPO, DOCUMENTED THE ABOVE INFORMATION ACTING A SCRIBE FOR DR. TRONCOSO. I HAVE REVIEWED THE ABOVE DOCUMENT, WRITTEN BY SUSAN BATEMAN AND I VERIFY THAT IT IS ACCURATE. PROCEDURE CODES 52935 INJECT SKIN LESIONS </W 7 DISPOSITION & COMMUNICATION FOLLOW UP 3 WEEKS ELECTRONICALLY SIGNED BY CHRISTINE TRONCOSO MD ON 01/11/2017 AT 03:29 PM EDT DISCLAIMER : THIS IS A VISIT SUMMARY EXTRACTED FROM THE [employer] CHART. IT IS NOT A COPY OF THE [employer] PROGRESS NOTE. MTDD
== END ==
LOC: M PAIN 11:40
PROVIDERS: ATTEND Anesthesiology
DX: G89.29 Other chronic pain (principal); L90.5 Scar conditions and fibrosis of skin; M54.5 Low back pain; G58.9 Mononeuropathy, unspecified; G43.909 Migraine, unspecified, not intractable, without status migrainosus; J45.909 Unspecified asthma, uncomplicated; Z91.011 Allergy to milk products; Z88.8 Allergy status to other drugs, medicaments and biological substances; Z79.891 Long term (current) use of opiate analgesic; Z79.899 Other long term (current) drug therapy

== ENCOUNTER → 2017-01-21 | Outpatient (CLI) | payer OTHER ==
[~2017-01-21] MED LIST changes: -BUPIVACAINE HCL 0.25% 10 ML VIAL As Ordered ONE; -BUPIVACAINE HCL 0.25% 30 ML VIAL As Ordered ONE; +HYDR25TA6; +TRAN1.5D2; -TRIAMCINOLONE ACETONIDE SUSP 40 MG/ML VIAL (J3301) As Ordered ONE; -diazePAM 5 MG TAB As Ordered ONE; -oxyCODONE 5MG TAB As Ordered ONE
--- NOTE | 2017-02-10 00:28 | ECWPNPC ---
PATIENT NAME: CARMEN RODRIGUEZ : 1965 GENDER: FEMALE VISIT DATE: 01/21/2017 DISCHARGE DATE: 01/21/17 1117 VISIT LOCKED DATE TIME: PHYSICIAN: LEANDER ROSE RESOURCE: LEANDER ROSE REASON FOR APPOINTMENT 1. LOW BACK HISTORY OF PRESENT ILLNESS HISTORY OF PRESENT ILLNESS: PAIN THE PATIENT DESCRIBES THE PAIN... FALL RISK SCREENING: SCREENING :NO FALLS IN THE PAST YEAR TODAY'S VISIT: NOTES: RATES PAIN LEVEL TODAY 4-5/10. IS S/P SCAR NEUROMA INJECTION TO THE LUMBAR SPINE LAMINECTOMY SCAR ON 01/02/17.PAIN LEVEL PRIOR WAS 5-7/10 AND POST WAS 2-3/10 X 3 WEEKS UNTIL OVER DID WALKING AND ACTIVITY. . CURRENT MEDICATIONS TAKING HYDROCHLOROTHIAZIDE 25 MG TABLET 1 TABLET ORALLY EVERY OTHER DAY TAKING XOLAIR 150 MG SOLUTION RECONSTITUTED SUBCUTANEOUS MONTHLY TAKING IMITREX 6 MG/0.5ML SOLUTION SUBCUTANEOUS DIRECTED TAKING ATORVASTATIN CALCIUM 10 MG TABLET 1 TABLET ORALLY ONCE A DAY TAKING [id number] 50-325-40 MG CAPSULE 1 CAPSULE NEEDED ORALLY EVERY 4 HRS TAKING FLUTICASONE PROPIONATE 50 MCG/ACT SUSPENSION 1 SPRAY IN EACH NOSTRIL NASALLY ONCE A DAY TAKING DEPAKOTE 250 MG TABLET DELAYED RELEASE ORALLY TWICE A DAY TAKING TYLENOL SINUS SEVERE 5-325-200 MG TABLET 2 TABLETS NEEDED ORALLY EVERY 4 HRS TAKING TRAMADOL HCL 50 MG TABLET 1 TABLET ORALLY EVERY 6 HRS PRN PAIN MDD=4 TAKING MAXALT 10 MG TABLET 1 TABLET NEEDED ONE TIME ORALLY ONCE A DAY TAKING NASONEX 50 MCG/ACT SUSPENSION 2 SPRAYS IN EACH NOSTRIL NASALLY ONCE A DAY TAKING VENTOLIN HFA 108 (90 BASE) MCG/ACT AEROSOL SOLUTION 2 PUFFS NEEDED INHALATION EVERY 4 HRS TAKING TIZANIDINE HCL 4 MG TABLET 1 TABLET NEEDED ORALLY BEFORE BEDTIME TAKING GABAPENTIN 300 MG CAPSULE 1 CAPSULE ORALLY BID TAKING DUONEB TAKING MUCINEX 600 MG TABLET EXTENDED RELEASE 1 TABLET NEEDED ORALLY EVERY 12 HRS NOT-TAKING TRAMADOL HCL 50 MG TABLET 1 TABLET NEEDED ORALLY EVERY 6 HRS PRN PAIN MDD=4 NOT-TAKING AMOXICILLIN-POT CLAVULANATE 875-125 MG TABLET 1 TABLET ORALLY EVERY 12 HRS NOT-TAKING ETODOLAC 400 MG TABLET 1 CAPSULE ORALLY TWICE A DAY MEDICATION LIST REVIEWED AND RECONCILED WITH THE PATIENT PAST MEDICAL HISTORY MIGRAINES ASTHMA SINUS/PULMONARY INFECTIONS ALLERGIES MILK: DYSPNEA ENVIRONMENTAL: DYSPNEA TOPAMAX: JOINT ACHES LEVAQUIN: ANAPHYLAXIS REVIEW OF SYSTEMS REVIEWED BY: PROVIDER: LEANDER MADRID . CONSTITUTIONAL: ANY CHANGE IN YOUR MEDICAL CONDITION? NO . CHILLS NO . FEVER NO . INFECTION: DO YOU HAVE NEW INFECTIONS? NO . DO YOU HAVE HISTORY OF MRSA? NO . MUSCULOSKELETAL: ANY NEW PATTERNS OF PAIN OR NUMBNESS? NO . GASTROENTEROLOGY: ANY NEW CHANGE IN BOWEL CONTROL? NO . GENITOURINARY: ANY NEW CHANGE IN BLADDER CONTROL? NO . IS THERE A CHANCE YOU COULD BE ? NO . HEMATOLOGY/LYMPH: DO YOU TAKE ANY BLOOD THINNERS? (FOR EXAMPLE- COUMADIN, PLAVIX, AGGRENOX, PLATEL, PRADAXA, OR XARELTO) NO . WHEN WAS YOUR LAST DOSE? DATE: TIME: . NEUROLOGY: HAVE YOU FALLEN IN THE PAST 6 MONTHS? NO . ANY NEW EXTREMITY NUMBNESS OR WEAKNESS? NO . CARDIOLOGY: DO YOU HAVE A PACEMAKER OR DEFIBRILLATOR? NO . RESPIRATORY: HAVE YOU BEEN SICK IN THE PAST WEEK? NO . FEVER NO . FLU LIKE SYMPTOMS? NO . COUGH NO . INTEGUMENTARY: DO YOU HAVE ANY RASHES OR OPEN SORES? NO . ALLERGIC/IMMUNO: ARE YOU ALLERGIC TO SHELLFISH OR IV DYE? NO . ANY NEW ALLERGIES? NO . PSYCHIATRIC: DO YOU HAVE THOUGHTS OF HURTING YOURSELF OR SOMEONE ELSE? NO . ARE YOU ABUSED, NEGLECTED, OR IN AN UNSAFE ENVIRONMENT? NO . ENDOCRINOLOGY: ARE YOU DIABETIC? NO . OTHER: DO YOU NEED ANY PRESCRIPTIONS? YES TRAMADOL . IF YES, PLEASE LIST: ____ . ANY NEW PROBLEMS WITH YOUR MEDICATIONS? NO . WHEN DID YOU LAST EAT? ____ . WHEN DID YOU LAST DRINK? ____ . WHAT DID YOU LAST DRINK? ____ . NAME OF PERSON DRIVING YOU HOME? ____ . DO YOU HAVE ANY OTHER QUESTIONS OR CONCERNS NO . VITAL SIGNS WT 187.0 LBS, HT 62 IN, BMI 34.20 INDEX, BP 142/90 MM HG, HR 85 /MIN, RR 16 /MIN, TEMP 97.4 F, OXYGEN SAT % 98%, NA INITIALS TL 1031PATIENT WAS WEIGHED ON PMC SCALE-TL. EXAMINATION GENERAL EXAMINATION: PSYCHALERT , ORIENTED X 3 , APPROPRIATE MOOD AND AFFECT . LUNGS:CLEAR TO AUSCULTATION BILATERALLY. HEART:HEART RATE REGULAR. MUSCULOSKELETAL:POINT TENDERNESS 2-2.5 CM ABOVE AND TO RIGHT OF LUMBAR SPINE INCISION. PALPABLE TENDER NODULE FELT ALONG INCISION. NO TENDERNESS OVER BILATERAL SIJ. FEW TTRIGGER POINTS NOTED OVER RIGHT > L;EFT LUMBOSACRAL AXIS ALONG THE SCAR. SLW TO RISE TO STANDING POSITION. POSTURE UPRIGHT, GAIT SLOW, ANTALGIC. ASSESSMENTS SCAR CONDITIONS AND FIBROSIS OF SKIN - L90.5 (PRIMARY) MYALGIA - M79.1 (PRIMARY) TREATMENT SCAR CONDITIONS AND FIBROSIS OF SKIN REFILL TRAMADOL HCL TABLET, 50 MG, 1 TABLET, ORALLY, EVERY 6 HRS PRN PAIN MDD=4, 30 DAY(S), 120, REFILLS 2 NOTES: CONTINUE WALKING, EXERCISES AND STRETCHES. CONTINUE CURRENT MEDS.[facility] - CRYOTHERAPY - [phone]. CLINICAL NOTES: AWAITING APPOINTMENT AT [facility] FOR CYROTHERAPY LOOKING FORWARD TO MORE LONG LASTING PAIN RELIEF. PROCEDURE CODES FA211 ESTABILISHED PATIENT [facility] FACILITY CHARGE DISPOSITION & COMMUNICATION FOLLOW UP LATE FEBRUARY (REASON: SCAR NEUROMA) ELECTRONICALLY SIGNED BY JOSE LEWIS ON 02/09/2017 AT 05:30 PM EDT DISCLAIMER : THIS IS A VISIT SUMMARY EXTRACTED FROM THE [employer] CHART. IT IS NOT A COPY OF THE [employer] PROGRESS NOTE. LUIS F
== END ==
LOC: M PAIN 10:20
PROVIDERS: ATTEND Nurse Practitioner Family
DX: G89.29 Other chronic pain (principal); L90.5 Scar conditions and fibrosis of skin; M79.1 Myalgia; G43.909 Migraine, unspecified, not intractable, without status migrainosus; J45.909 Unspecified asthma, uncomplicated; Z91.011 Allergy to milk products; Z88.8 Allergy status to other drugs, medicaments and biological substances; Z79.891 Long term (current) use of opiate analgesic; Z79.899 Other long term (current) drug therapy

== ENCOUNTER 2017-02-11 11:11 | Emergency (ER) | payer OTHER ==
[~2017-02-11] VITALS: Ht 157.5 cm; Wt 81.8 kg
[~2017-02-11 11:11] MED LIST changes: -HYDR25TA6; -TRAN1.5D2
[2017-02-11 11:12] VITALS: BP 142/90
[2017-02-11] MEDS ORDERED: TRAN1.5D2 (11:24)
[2017-02-11] MEDS ORDERED: HYDR25TA6 (11:24)
== END 2017-02-11 11:58 | disposition home or self-care (01) ==
LOC: M ED 11:11
DX: M79.89 Other specified soft tissue disorders (principal); M79.644 Pain in right finger(s); J45.909 Unspecified asthma, uncomplicated; K42.9 Umbilical hernia without obstruction or gangrene; Z88.8 Allergy status to other drugs, medicaments and biological substances; Z79.899 Other long term (current) drug therapy

== ENCOUNTER → 2017-03-19 | Outpatient (CLI) | payer OTHER ==
[~2017-03-19] MED LIST changes: +HYDR25TA6; +TRAN1.5D2
--- NOTE | 2017-03-29 23:53 | ECWPNPC ---
PATIENT NAME: CARMEN RODRIGUEZ : 1965 GENDER: FEMALE VISIT DATE: 03/19/2017 DISCHARGE DATE: 03/19/17 0000 VISIT LOCKED DATE TIME: PHYSICIAN: LEANDER ROSE RESOURCE: LEANDER ROSE REASON FOR APPOINTMENT 1. LOW BACK HISTORY OF PRESENT ILLNESS HISTORY OF PRESENT ILLNESS: PAIN THE PATIENT DESCRIBES THE PAIN... FALL RISK SCREENING: SCREENING :NO FALLS IN THE PAST YEAR TODAY'S VISIT: NOTES: RATES PAIN TODAY 8/10. TODAY IS A BAD DAY SHE HAS SINCE DEVELOPED A MIGRAINE. PAIN IS CENTERED IN LOW BACK WITH RADIATION TO RIGHT LEG. IS BEING SCHEDULED FOR CRYOABLATION TO SCAR NEUROMA ON 04/01/17. . CURRENT MEDICATIONS TAKING HYDROCHLOROTHIAZIDE 25 MG TABLET 1 TABLET ORALLY EVERY OTHER DAY TAKING XOLAIR 150 MG SOLUTION RECONSTITUTED SUBCUTANEOUS MONTHLY TAKING IMITREX 6 MG/0.5ML SOLUTION SUBCUTANEOUS DIRECTED TAKING ATORVASTATIN CALCIUM 10 MG TABLET 1 TABLET ORALLY ONCE A DAY TAKING [id number] 50-325-40 MG CAPSULE 1 CAPSULE NEEDED ORALLY EVERY 4 HRS TAKING FLUTICASONE PROPIONATE 50 MCG/ACT SUSPENSION 1 SPRAY IN EACH NOSTRIL NASALLY ONCE A DAY TAKING DEPAKOTE 250 MG TABLET DELAYED RELEASE ORALLY TWICE A DAY TAKING TYLENOL SINUS SEVERE 5-325-200 MG TABLET 2 TABLETS NEEDED ORALLY EVERY 4 HRS TAKING MAXALT 10 MG TABLET 1 TABLET NEEDED ONE TIME ORALLY ONCE A DAY TAKING NASONEX 50 MCG/ACT SUSPENSION 2 SPRAYS IN EACH NOSTRIL NASALLY ONCE A DAY TAKING VENTOLIN HFA 108 (90 BASE) MCG/ACT AEROSOL SOLUTION 2 PUFFS NEEDED INHALATION EVERY 4 HRS TAKING TIZANIDINE HCL 4 MG TABLET 1 TABLET NEEDED ORALLY BEFORE BEDTIME TAKING GABAPENTIN 300 MG CAPSULE 1 CAPSULE ORALLY BID TAKING DUONEB TAKING MUCINEX 600 MG TABLET EXTENDED RELEASE 1 TABLET NEEDED ORALLY EVERY 12 HRS TAKING TRAMADOL HCL 50 MG TABLET 1 TABLET ORALLY EVERY 6 HRS PRN PAIN MDD=4 NOT-TAKING TRAMADOL HCL 50 MG TABLET 1 TABLET NEEDED ORALLY EVERY 6 HRS PRN PAIN MDD=4 NOT-TAKING AMOXICILLIN-POT CLAVULANATE 875-125 MG TABLET 1 TABLET ORALLY EVERY 12 HRS NOT-TAKING ETODOLAC 400 MG TABLET 1 CAPSULE ORALLY TWICE A DAY MEDICATION LIST REVIEWED AND RECONCILED WITH THE PATIENT PAST MEDICAL HISTORY MIGRAINES ASTHMA SINUS/PULMONARY INFECTIONS ALLERGIES MILK: DYSPNEA ENVIRONMENTAL: DYSPNEA TOPAMAX: JOINT ACHES LEVAQUIN: ANAPHYLAXIS SURGICAL HISTORY UMBILICAL HERNIA REPAIR 2010 3 SINUS SURGERIES [id number] REMOVAL OF CYST GENITAL AREA 2009 TONSILLECTOMY AND PARTIAL REMOVAL UVULA 2012 BACK SURGERY 2015 HOSPITALIZATION/MAJOR DIAGNOSTIC PROCEDURE ASTHMA RELATED SURGERIES REVIEW OF SYSTEMS REVIEWED BY: PROVIDER: LEANDER MADRID . CONSTITUTIONAL: ANY CHANGE IN YOUR MEDICAL CONDITION? NO . CHILLS NO . FEVER NO . INFECTION: DO YOU HAVE NEW INFECTIONS? NO . DO YOU HAVE HISTORY OF MRSA? NO . MUSCULOSKELETAL: ANY NEW PATTERNS OF PAIN OR NUMBNESS? NO . GASTROENTEROLOGY: ANY NEW CHANGE IN BOWEL CONTROL? NO . GENITOURINARY: ANY NEW CHANGE IN BLADDER CONTROL? NO . IS THERE A CHANCE YOU COULD BE ? NO . HEMATOLOGY/LYMPH: DO YOU TAKE ANY BLOOD THINNERS? (FOR EXAMPLE- COUMADIN, PLAVIX, AGGRENOX, PLATEL, PRADAXA, OR XARELTO) NO . WHEN WAS YOUR LAST DOSE? DATE: TIME: . NEUROLOGY: HAVE YOU FALLEN IN THE PAST 6 MONTHS? YES, PT STATES SHE FELL FROM LOSS OF BALANCE, PT DENIES MAJOR INJURIES REQUIRING MEDICAL ATTENTION . ANY NEW EXTREMITY NUMBNESS OR WEAKNESS? NO . CARDIOLOGY: DO YOU HAVE A PACEMAKER OR DEFIBRILLATOR? NO . RESPIRATORY: HAVE YOU BEEN SICK IN THE PAST WEEK? NO . FEVER NO . FLU LIKE SYMPTOMS? NO . COUGH NO . INTEGUMENTARY: DO YOU HAVE ANY RASHES OR OPEN SORES? YES, RASH UNDER BILAT BREASTS . ALLERGIC/IMMUNO: ARE YOU ALLERGIC TO SHELLFISH OR IV DYE? NO . ANY NEW ALLERGIES? NO . PSYCHIATRIC: DO YOU HAVE THOUGHTS OF HURTING YOURSELF OR SOMEONE ELSE? NO . ARE YOU ABUSED, NEGLECTED, OR IN AN UNSAFE ENVIRONMENT? NO . ENDOCRINOLOGY: ARE YOU DIABETIC? NO . OTHER: DO YOU NEED ANY PRESCRIPTIONS? YES, TRAMADOL . IF YES, PLEASE LIST: ____ . ANY NEW PROBLEMS WITH YOUR MEDICATIONS? NO . WHEN DID YOU LAST EAT? ____ . WHEN DID YOU LAST DRINK? ____ . WHAT DID YOU LAST DRINK? ____ . NAME OF PERSON DRIVING YOU HOME? ____ . DO YOU HAVE ANY OTHER QUESTIONS OR CONCERNS NO . VITAL SIGNS WT 182.2 LBS, HT 62 IN, BMI 33.32 INDEX, BP 131/77 MM HG, HR 77 /MIN, RR 16 /MIN, TEMP 97.2 F, OXYGEN SAT % 99%, NA INITIALS CM 1042, REVIEWED BY: EM. EXAMINATION GENERAL EXAMINATION: PSYCHALERT , ORIENTED X 3 , APPROPRIATE MOOD AND AFFECT . LUNGS:CLEAR TO AUSCULTATION BILATERALLY. HEART:HEART RATE REGULAR. MUSCULOSKELETAL:POINT TENDERNESS 2-2.5 CM ABOVE AND TO RIGHT OF LUMBAR SPINE INCISION. PALPABLE TENDER NODULE FELT ALONG INCISION. NO TENDERNESS OVER BILATERAL SIJ. FEW TTRIGGER POINTS NOTED OVER RIGHT > L;EFT LUMBOSACRAL AXIS ALONG THE SCAR. SLW TO RISE TO STANDING POSITION. POSTURE UPRIGHT, GAIT SLOW, ANTALGIC. ASSESSMENTS SCAR CONDITIONS AND FIBROSIS OF SKIN - L90.5 (PRIMARY) MYALGIA - M79.1 (PRIMARY) TREATMENT SCAR CONDITIONS AND FIBROSIS OF SKIN REFILL TRAMADOL HCL TABLET, 50 MG, 1 TABLET, ORALLY, EVERY 6 HRS PRN PAIN MDD=4, 30 DAY(S), 120, REFILLS 2 PROCEDURE CODES FA211 ESTABILISHED PATIENT [facility] CHARGE DISPOSITION & COMMUNICATION FOLLOW UP 2ND WEEK IN MAR (REASON: BACK PAIN/SCAR NEUROMA) ELECTRONICALLY SIGNED BY JOSE LEWIS ON 03/29/2017 AT 04:08 PM EDT DISCLAIMER : THIS IS A VISIT SUMMARY EXTRACTED FROM THE [employer] CHART. IT IS NOT A COPY OF THE [employer] PROGRESS NOTE. LUIS F
== END ==
LOC: M PAIN 10:15
PROVIDERS: ATTEND Nurse Practitioner Family
DX: G89.29 Other chronic pain (principal); L90.5 Scar conditions and fibrosis of skin; M79.1 Myalgia; G43.909 Migraine, unspecified, not intractable, without status migrainosus; J45.909 Unspecified asthma, uncomplicated; R21 Rash and other nonspecific skin eruption; Z91.011 Allergy to milk products; Z88.8 Allergy status to other drugs, medicaments and biological substances; Z79.891 Long term (current) use of opiate analgesic; Z79.899 Other long term (current) drug therapy

== ENCOUNTER → 2017-07-31 | Outpatient (CLI) | payer OTHER | LOC: M PAIN 09:30 | DX: L90.5 Scar conditions and fibrosis of skin (principal); M79.1 Myalgia; G43.909 Migraine, unspecified, not intractable, without status migrainosus; J45.909 Unspecified asthma, uncomplicated; Z79.891 Long term (current) use of opiate analgesic; Z79.899 Other long term (current) drug therapy; Z88.8 Allergy status to other drugs, medicaments and biological substances; Z91.011 Allergy to milk products | CPT/HCPCS: G0463 ==

== ENCOUNTER → 2017-08-21 | Outpatient (CLI) | payer OTHER | LOC: M LAB 17:45 | DX: Z11.59 Encounter for screening for other viral diseases (principal) | CPT/HCPCS: 86803 ==

== ENCOUNTER → 2017-09-28 | Outpatient (CLI) | payer OTHER | LOC: M PAIN 09:30 | DX: L90.5 Scar conditions and fibrosis of skin (principal); M79.1 Myalgia; G43.909 Migraine, unspecified, not intractable, without status migrainosus; J45.909 Unspecified asthma, uncomplicated; Z79.891 Long term (current) use of opiate analgesic; Z79.899 Other long term (current) drug therapy; Z91.011 Allergy to milk products; Z88.8 Allergy status to other drugs, medicaments and biological substances | CPT/HCPCS: G0463 ==

== ENCOUNTER → 2017-10-26 | Outpatient (CLI) | payer OTHER ==
[~2017-10-26] MED LIST changes: +BUPIVACAINE HCL 0.25% 10 ML VIAL As Ordered; +BUPIVACAINE HCL 0.25% 30 ML VIAL As Ordered; -CYCL10TA PO; -FIOR1CAP PO; -HYDR12.55 PO; -HYDR25TA6; -IMIT6INJ SC; -METH750T PO; -NAPR220C PO; -TRAMADOL PO; -TRAN1.5D2; +TRIAMCINOLONE ACETONIDE SUSP 40 MG/ML VIAL (J3301) As Ordered; -XOLA150S SC; +diazePAM 5 MG TAB As Ordered; +oxyCODONE 5MG TAB As Ordered
== END ==
LOC: M PAIN 08:30
DX: G89.29 Other chronic pain (principal); L90.5 Scar conditions and fibrosis of skin; G43.909 Migraine, unspecified, not intractable, without status migrainosus; J45.909 Unspecified asthma, uncomplicated; Z79.899 Other long term (current) drug therapy; Z88.8 Allergy status to other drugs, medicaments and biological substances; Z91.011 Allergy to milk products
CPT/HCPCS: J3301

== ENCOUNTER → 2017-12-09 | Outpatient (CLI) | payer OTHER | LOC: M PAIN 13:00 | DX: M46.1 Sacroiliitis, not elsewhere classified (principal); L90.5 Scar conditions and fibrosis of skin; M79.1 Myalgia; G43.909 Migraine, unspecified, not intractable, without status migrainosus; J45.909 Unspecified asthma, uncomplicated; Z91.011 Allergy to milk products; Z79.899 Other long term (current) drug therapy; Z88.8 Allergy status to other drugs, medicaments and biological substances | CPT/HCPCS: G0463 ==

== ENCOUNTER → 2018-02-10 | Outpatient (CLI) | payer OTHER | LOC: M PAIN 13:30 | DX: M46.1 Sacroiliitis, not elsewhere classified (principal); L90.5 Scar conditions and fibrosis of skin; M79.1 Myalgia; M54.16 Radiculopathy, lumbar region; G43.909 Migraine, unspecified, not intractable, without status migrainosus; J45.909 Unspecified asthma, uncomplicated; Z79.899 Other long term (current) drug therapy; Z91.011 Allergy to milk products; Z88.1 Allergy status to other antibiotic agents; Z88.8 Allergy status to other drugs, medicaments and biological substances | CPT/HCPCS: G0463 ==

== ENCOUNTER → 2018-03-23 | Outpatient (CLI) | payer OTHER ==
[~2018-03-23] MED LIST changes: -BUPIVACAINE HCL 0.25% 10 ML VIAL As Ordered; +ISOVUE-M 300 61% 15ML VIAL (Q9967) As Ordered; +LIDOCAINE 1% SDV INJ 30 ML VIAL As Ordered; -TRIAMCINOLONE ACETONIDE SUSP 40 MG/ML VIAL (J3301) As Ordered; +dexameTHASONE 10 MG/1 ML VIAL PRES.FREE (J1100) As Ordered
== END ==
LOC: M PAIN 13:00
DX: M51.16 Intervertebral disc disorders with radiculopathy, lumbar region (principal); G43.909 Migraine, unspecified, not intractable, without status migrainosus; J45.909 Unspecified asthma, uncomplicated; Z79.891 Long term (current) use of opiate analgesic; Z79.899 Other long term (current) drug therapy; Z91.011 Allergy to milk products; Z88.8 Allergy status to other drugs, medicaments and biological substances; Z88.1 Allergy status to other antibiotic agents
CPT/HCPCS: J1100

== ENCOUNTER → 2018-04-22 | Outpatient (CLI) | payer OTHER | LOC: M PAIN 10:15 | DX: M51.16 Intervertebral disc disorders with radiculopathy, lumbar region (principal); M79.1 Myalgia; G43.909 Migraine, unspecified, not intractable, without status migrainosus; J45.909 Unspecified asthma, uncomplicated; Z79.1 Long term (current) use of non-steroidal anti-inflammatories (NSAID); Z79.899 Other long term (current) drug therapy; Z91.011 Allergy to milk products; Z88.1 Allergy status to other antibiotic agents; Z88.8 Allergy status to other drugs, medicaments and biological substances | CPT/HCPCS: G0463 ==

== ENCOUNTER → 2018-05-27 | Outpatient (CLI) | payer OTHER ==
[~2018-05-27] MED LIST changes: -BUPIVACAINE HCL 0.25% 30 ML VIAL As Ordered; -ISOVUE-M 300 61% 15ML VIAL (Q9967) As Ordered; -LIDOCAINE 1% SDV INJ 30 ML VIAL As Ordered; +PROHANCE 279.3MG/ML 15ML VIAL (A9576) As Ordered; +PROHANCE 279.3MG/ML 5ML VIAL (A9576) As Ordered; -dexameTHASONE 10 MG/1 ML VIAL PRES.FREE (J1100) As Ordered; -diazePAM 5 MG TAB As Ordered; -oxyCODONE 5MG TAB As Ordered
== END ==
LOC: M RAD 16:00
DX: M51.16 Intervertebral disc disorders with radiculopathy, lumbar region (principal)
CPT/HCPCS: A9576

== ENCOUNTER → 2018-06-03 | Outpatient (CLI) | payer OTHER | LOC: M PAIN 09:45 | DX: M51.16 Intervertebral disc disorders with radiculopathy, lumbar region (principal); M79.18 Myalgia, other site; G43.909 Migraine, unspecified, not intractable, without status migrainosus; J45.909 Unspecified asthma, uncomplicated; Z79.891 Long term (current) use of opiate analgesic; Z79.899 Other long term (current) drug therapy; Z91.011 Allergy to milk products; Z88.1 Allergy status to other antibiotic agents; Z88.8 Allergy status to other drugs, medicaments and biological substances | CPT/HCPCS: G0463 ==

== ENCOUNTER 2018-09-17 19:20 | Emergency (ER) | payer OTHER ==
[~2018-09-17] VITALS: Ht 157.5 cm; Wt 88.6 kg
[~2018-09-17 19:20] MED LIST changes: +CYCL10TA PO; +FIOR1CAP PO; +HYDR12.55 PO; +HYDR25TA6; +IMIT6INJ SC; +METH750T PO; +NAPR220C PO; -PROHANCE 279.3MG/ML 15ML VIAL (A9576) As Ordered; -PROHANCE 279.3MG/ML 5ML VIAL (A9576) As Ordered; +TRAMADOL PO; +TRAN1.5D2; +XOLA150S SC
[2018-09-17] MEDS ORDERED: VENTAER INH (19:45)
[2018-09-17] MEDS ORDERED: ACETAMINOPHEN 325 MG TAB PO ONE (20:00)
[2018-09-17] MEDS ORDERED: dexameTHASONE 20 MG/5 ML VIAL (J1100) IV ONE (20:00)
[2018-09-17] MEDS ORDERED: IPRATROPIUM 0.5MG/ALBUTEROL 2.5MG INH SOL UD 3ML (DUONEB)(J7620) NEB ONE (20:00)
--- NOTE | 2018-09-17 20:10 | REP ---
PA and lateral chest: Comparisons is the chest CT of 12/16/2007. The lung amezcua are clear. The cardiac size is normal. The mitesh, mediastinum, and skeletal structures are unremarkable. Impression: Negative PA and lateral chest. Electronically Signed by Kasi Smith MD 09/17/2018 08:01 P
[2018-09-17 20:14] LABS: BASO % 0.5 % (0.0-1.0); EOS # 0.1 10^3/uL (0.0-0.50); EOS % 2.1 % (0.0-3.0); HEMOGLOBIN 12.4 g/dl (12.0-15.5); LYMPH % 17.9 % (24.0-44.0); MEAN CORPUSCULAR HEMOGLOBIN 30.9 pg (27.0-33.0); MEAN CORPUSCULAR HGB CONC 33.5 g/dl (32.0-36.5); MEAN CORPUSCULAR VOLUME 92.3 fl (80.0-96.0); MONO # 0.5 10^3/uL (0.0-0.8); MONO % 9.1 % (0.0-5.0); NEUTROPHILS # 3.9 10^3/uL (1.8-7.7); NEUTROPHILS % 70.2 % (36.0-66.0); PLATELET COUNT, AUTOMATED 250 10^3/uL (150-450); RED BLOOD COUNT 4.01 10^6/uL (4.00-5.40); WHITE BLOOD COUNT 5.6 10^3/uL (4.0-10.0)
[2018-09-17 20:42] LABS: INFLUENZA A AMPLIFICATION POSITIVE (NEGATIVE); INFLUENZA B AMPLIFICATION NEGATIVE (NEGATIVE)
[2018-09-17 20:53] LABS: BLOOD UREA NITROGEN 5 MG/DL (7-18); CALCIUM LEVEL 7.9 MG/DL (8.5-10.1); CARBON DIOXIDE LEVEL 29 MEQ/L (21-32); CHLORIDE LEVEL 102 MEQ/L (98-107); CREATININE FOR GFR 0.87 MG/DL (0.55-1.30); GLOMERULAR FILTRATION RATE > 60.0 (>51); GLUCOSE, FASTING 131 MG/DL (70-100); POTASSIUM SERUM 3.5 MEQ/L (3.5-5.1); SODIUM LEVEL 140 MEQ/L (136-145)
[2018-09-17] MEDS ORDERED: OSEL75CA PO (21:30)
[2018-09-17 21:42] VITALS: BP 135/63
--- NOTE | 2018-09-18 05:49 | ECGEPIP ---
Stationary ECG Study 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
== END 2018-09-17 21:48 | disposition home or self-care (01) ==
LOC: M ED 19:20
DX: J09.X2 Influenza due to identified novel influenza A virus with other respiratory manifestations (principal); R00.0 Tachycardia, unspecified; J45.909 Unspecified asthma, uncomplicated; G43.909 Migraine, unspecified, not intractable, without status migrainosus; M54.9 Dorsalgia, unspecified; Z88.1 Allergy status to other antibiotic agents; Z88.8 Allergy status to other drugs, medicaments and biological substances; Z79.899 Other long term (current) drug therapy
CPT/HCPCS: 36415; 71046; 80048; 85025; 87040; 87502; 93005; 94640; 96374; 99284; J1100

== ENCOUNTER → 2018-10-28 | Outpatient (CLI) | payer OTHER ==
[~2018-10-28] MED LIST changes: +OSEL75CA PO; +SCOP1PAT2; -TRAN1.5D2; +VENTAER INH
--- NOTE | 2018-10-29 23:42 | ECWPNPC ---
PATIENT NAME: CARMEN RODRIGUEZ : 1965 GENDER: FEMALE VISIT DATE: 10/28/2018 DISCHARGE DATE: 10/28/18 1211 VISIT LOCKED DATE TIME: PHYSICIAN: DANIKA TOMPKINS RESOURCE: DANIKA TOMPKINS REASON FOR APPOINTMENT 1. BACK PAIN PT OF SW HISTORY OF PRESENT ILLNESS HISTORY OF PRESENT ILLNESS: PAIN THE PATIENT DESCRIBES THE PAINDURING THE LAST MONTH SEVERITY - PAIN SCORE OF4/10 53 YR OLD FEMALE WITH A HX OF CHRONIC LOWER PAIN FOR SEVERAL YEARS, HERE FOR A F/U.SHE HAS STOPPED TAKING HER TRAMADOL. SHE WOULD LIKE TO DISCUSS ANOTHE RMEDICATION THAT IS NOT AN OPIOID. SHE WAS TOLD BY HER SUREGON, DR DIAZ THAT SHE NEEDS SURGERY FOR SPINAL FUSION BUT PATIENT SAYS SHE WOULD LIKE A SECOND OPINION.SHE SAYS HER PAIN IS AT BASLINE TODAY 10. SHE DENIES, FEVERS, CHILLS, WEIGHTLOSS. FALL RISK SCREENING: SCREENING :NO FALLS REPORTED IN THE LAST YEAR CURRENT MEDICATIONS TAKING HYDROCHLOROTHIAZIDE 25 MG TABLET 1 TABLET ORALLY EVERY OTHER DAY TAKING IMITREX 6 MG/0.5ML SOLUTION SUBCUTANEOUS DIRECTED TAKING [id number] 50-325-40 MG CAPSULE 1 CAPSULE NEEDED ORALLY EVERY 4 HRS TAKING MAXALT 10 MG TABLET 1 TABLET NEEDED ONE TIME ORALLY ONCE A DAY TAKING VENTOLIN HFA 108 (90 BASE) MCG/ACT AEROSOL SOLUTION 2 PUFFS NEEDED INHALATION EVERY 4 HRS TAKING DUONEB PRN TAKING TYLENOL SINUS SEVERE 5-325-200 MG TABLET 2 TABLETS NEEDED ORALLY EVERY 4 HRS TAKING SINGULAIR 10 MG TABLET 1 TABLET IN THE EVENING ORALLY ONCE A DAY TAKING GABAPENTIN 300 MG CAPSULE 1 CAPSULE ORALLY TID TAKING BENZONATATE 100 MG CAPSULE 1 CAPSULE NEEDED ORALLY THREE TIMES A DAY TAKING FLUTICASONE PROPIONATE 50 MCG/ACT SUSPENSION 1 SPRAY IN EACH NOSTRIL NASALLY ONCE A DAY, NOTES: 03/20 NOT-TAKING ATORVASTATIN CALCIUM 10 MG TABLET 1 TABLET ORALLY ONCE A DAY NOT-TAKING DIVALPROEX SODIUM 500 MG TABLET DELAYED RELEASE ORALLY BID NOT-TAKING ROPINIROLE HCL 0.5 MG TABLET 1 TABLET 1 TO 3 HOURS BEFORE BEDTIME ORALLY ONCE A DAY NOT-TAKING MELOXICAM 15 MG TABLET 1 TABLET ORALLY ONCE A DAY NOT-TAKING TIZANIDINE HCL 4 MG TABLET 1 TABLET NEEDED ORALLY BEFORE BEDTIME NOT-TAKING DEPAKOTE 250 MG TABLET DELAYED RELEASE ORALLY TWICE A DAY NOT-TAKING NASONEX 50 MCG/ACT SUSPENSION 2 SPRAYS IN EACH NOSTRIL NASALLY ONCE A DAY PRN, NOTES: NONE RECENT DISCONTINUED TRAMADOL HCL 50 MG TABLET 1 TABLET NEEDED ORALLY EVERY 6 HRS PRN PAIN MDD=4 MEDICATION LIST REVIEWED AND RECONCILED WITH THE PATIENT PAST MEDICAL HISTORY MIGRAINES ASTHMA SINUS/PULMONARY INFECTIONS SCAR NEUROMA BACK PAIN RADIATING DOWN BOTH LEGS ALLERGIES MILK: DYSPNEA - ALLERGY ENVIRONMENTAL: DYSPNEA - ALLERGY TOPAMAX: JOINT ACHES - SIDE EFFECTS LEVAQUIN: ANAPHYLAXIS - ALLERGY TRAMADOL HCL: NAUSEA/VOMITING - ALLERGY [id number] (BOWEL PREP): NAUSEA/VOMITING - ALLERGY SURGICAL HISTORY UMBILICAL HERNIA REPAIR 2010 3 SINUS SURGERIES [id number] REMOVAL OF CYST GENITAL AREA 2009 TONSILLECTOMY AND PARTIAL REMOVAL UVULA 2012 BACK SURGERY 2014 D&C 2001 FAMILY HISTORY FATHER: , DIAGNOSED WITH HYPERTENSION, CANCER MOTHER: ALIVE, HYPERTENSION, HEART DISEASE, STROKE, CANCER 1 BROTHER(S) , 3 SISTER(S) . 1 SON(S) - HEALTHY. MOM BREAST AND SKIN CA\NSON- ASTHMA AND HEADACHESSISTER SUICIDE, ONE SISTER ORGAN FAILUREBROTHER HEART DIEASE. SOCIAL HISTORY GENERAL: TOBACCO USE ARE YOU A:NONSMOKER LATEX QUESTIONNAIRE LATEX ALLERGY : HAVE YOU EVER DEVELOPED ANY TYPE OF REACTION AFTER HANDLING LATEX PRODUCTS SUCH RUBBER GLOVES, CONDOMS, DIAPHRAGMS, BALLOONS, SOCKS, OR UNDERWEAR?NO LATEX ALLERGY : HAVE YOU EVER DEVELOPED ANY TYPE OF REACTION DURING OR AFTER DENTAL APPOINTMENT, VAGINAL/RECTAL EXAMINATION, SURGICAL PROCEDURE, OR ANY OTHER EXPOSURE?NO LATEX RISK : HAVE YOU EVER HAD ANY DIFFICULTY BREATHING OR HIVES AFTER EATING OR HANDLING ANY FRUITS, OR VEGETABLES; SUCH KIWI, BANANAS, STONE FRUITS, OR CHESTNUTSNO LATEX RISK : DO YOU HAVE A PREVIOUS PERSONAL HISTORY OF MORE THAN NINE SURGERIES, SPINA BIFIDA, OR REPEATED CATHERTIZATIONS? NO LATEX RISK : ARE YOU FREQUENTLY EXPOSED TO LATEX PRODUCTS IN YOUR OCCUPATION?NO DATE ASKED : 10/28/2018 ALCOHOL SCREENING DID YOU HAVE A DRINK CONTAINING ALCOHOL IN THE PAST YEAR?NO POINTS0 INTERPRETATIONNEGATIVE RECREATIONAL DRUG USE DRUG USE?NO CAFFEINE CAFFEINE USE?YES HOW OFTEN AND HOW MUCH? 1 COKE/DAY CONGREGATION [id number] NONE LANGUAGE LANGUAGES SPOKEN:[place] EDUCATION LEVEL OF EDUCATION:NOT FINISHED COLLEGE LEARNING BARRIERS / SPECIAL NEEDS BARRIERS TO LEARNING?NO HEARING IMPAIRED?NO VISION IMPAIRED?YES :CORRECTIVE LENSES COGNITIVELY IMPAIRED?NO READINESS TO LEARN?YES LEARNING PREFERENCES?NO LEARNING CAPABILITIES PRESENT?YES EMOTIONAL BARRIERS?NO SPECIAL DEVICES?NO SERVICE DESK LEAD NEEDED?NO DOMESTIC VIOLENCE DO YOU FEEL SAFE IN YOUR ENVIRONMENT?YES DIET: REGULAR. EXERCISE: TREADMILL 30 MINS-1 HOURS 3-4X/WK. OTHERS AT HOME: SPOUSE, CHILD, OTHER RELATIVE. PAIN CLINIC PFS, CLERGY, PUBLIC HEALTH REFERRALS PFS REFERRAL NEEDED?NO CLERGY REFERRAL NEEDED?NO PUBLIC HEALTH REFERRAL NEEDED?NO WAS THE PROVIDER NOTIFIED OF ANY PERTINENT INFO?NO N/A HAS THE PATIENT BEEN EDUCATED REGARDING HIS/HER PLAN OF CARE?YES HAS THE PATIENT BEEN EDUCATED REGARDING PAIN, THE RISK FOR PAIN, THE IMPORTANCE OF EFFECTIVE PAIN MANAGEMENT, AND THE PAIN ASSESSMENT PROCESS?YES ADVANCE DIRECTIVE ADVANCE DIRECTIVE DISCUSSED WITH PATIENT:YES PT DOESN'T HAVE ANY ADVANCED DIRECTIVES AND DECLINED INFORMATION ON HCP AT THIS TIME. 06/03/18 BV PT. DECLINES INFORMATION 10/26/17 0900 REVIEWED. PT DECLINED INFORMATION ON ADVANCED DIRECTIVES AD02/10/18 1400 REVIEWED WITH PT. AD03/23/18 1420 REVIEWED WITH PT. AD04/22/18 1053 REVIEWED WITH PT LASREVIEWED WITH PT 06/03/18 [id number] BV. HOSPITALIZATION/MAJOR DIAGNOSTIC PROCEDURE ASTHMA RELATED SURGERIES REVIEW OF SYSTEMS REVIEWED BY: PROVIDER: PRESLEY . CONSTITUTIONAL: ANY CHANGE IN YOUR MEDICAL CONDITION? NO . CHILLS NO . FEVER NO . INFECTION: DO YOU HAVE NEW INFECTIONS? NO . DO YOU HAVE HISTORY OF MRSA? NO . MUSCULOSKELETAL: ANY NEW PATTERNS OF PAIN OR NUMBNESS? NO . GASTROENTEROLOGY: ANY NEW CHANGE IN BOWEL CONTROL? NO . GENITOURINARY: ANY NEW CHANGE IN BLADDER CONTROL? NO . IS THERE A CHANCE YOU COULD BE ? NO . HEMATOLOGY/LYMPH: DO YOU TAKE ANY BLOOD THINNERS? (FOR EXAMPLE- COUMADIN, PLAVIX, AGGRENOX, PLATEL, PRADAXA, OR XARELTO) NO . WHEN WAS YOUR LAST DOSE? DATE: TIME: . NEUROLOGY: HAVE YOU FALLEN IN THE PAST 12 MONTHS? NO . ANY NEW EXTREMITY NUMBNESS OR WEAKNESS? NO . CARDIOLOGY: DO YOU HAVE A PACEMAKER OR DEFIBRILLATOR? NO . RESPIRATORY: HAVE YOU BEEN SICK IN THE PAST WEEK? NO . FEVER NO . FLU LIKE SYMPTOMS? NO . COUGH NO . INTEGUMENTARY: DO YOU HAVE ANY RASHES OR OPEN SORES? NO . ALLERGIC/IMMUNO: ARE YOU ALLERGIC TO IV DYE? NO . ANY NEW ALLERGIES? NO . PSYCHIATRIC: DO YOU HAVE THOUGHTS OF HURTING YOURSELF OR SOMEONE ELSE? NO . ARE YOU ABUSED, NEGLECTED, OR IN AN UNSAFE ENVIRONMENT? NO . ENDOCRINOLOGY: ARE YOU DIABETIC? NO . OTHER: DO YOU NEED ANY PRESCRIPTIONS? NO . IF YES, PLEASE LIST: ____ . ANY NEW PROBLEMS WITH YOUR MEDICATIONS? YES . WHEN DID YOU LAST EAT? ____ . WHEN DID YOU LAST DRINK? ____ . WHAT DID YOU LAST DRINK? ____ . NAME OF PERSON DRIVING YOU HOME? ____ . DO YOU HAVE ANY OTHER QUESTIONS OR CONCERNS NO . VITAL SIGNS WT 198.6 LBS, HT 62 IN, BMI 36.32 INDEX, BP 145/94 MM HG, HR 77 /MIN, RR 18 /MIN, TEMP 96.9 F, OXYGEN SAT % 98%, SAFE IN ENV? (Y/N) YES, NA INITIALS MT 08:53, REVIEWED BY: CHRISTINA. EXAMINATION GENERAL EXAMINATION: GENERAL APPEARANCE:NO ACUTE DISTRESS, WELL NOURISHED AND HYDRATED. PSYCHAPPROPRIATE MOOD AND AFFECT . LUNGS:CLEAR TO AUSCULTATION BILATERALLY, NO WHEEZES, RHONCHI, RALES. HEART:NO MURMURS, REGULAR RATE AND RHYTHM. BACK: HEALED LINERA SCAR L2-L5. TENDERNESS TO PLAPATION TO LUMBAR SPINAND PARASPINAL MUSCLES. NORMAL GAIT.. ASSESSMENTS SPONDYLOSIS WITHOUT MYELOPATHY OR RADICULOPATHY, LUMBAR REGION - M47.816 (PRIMARY) LUMBAR FACET ARTHROPATHY - M12.88 LUMBAR BACK PAIN WITH RADICULOPATHY AFFECTING RIGHT LOWER EXTREMITY - M54.16 INTERVERTEBRAL DISC DISORDER WITH RADICULOPATHY OF LUMBAR REGION - M51.16 TREATMENT SPONDYLOSIS WITHOUT MYELOPATHY OR RADICULOPATHY, LUMBAR REGION START DULOXETINE HCL CAPSULE DELAYED RELEASE PARTICLES, 30 MG, 1 CAPSULE, ORALLY, ONCE A DAY, 30 DAY(S), 30, REFILLS 1 CLINICAL NOTES: PATIENT WOULD LIKE A REFERRAL FOR A SECOND OPION REGARDING SURGERY.SHE WOULD LIKE TO BE REFERRED TO [facility].I ADVISED PATIENT THAT I CAN START HER ON DULOXETINE 30MG. RISK AND BENEFITS AND SIDE EFFECTS OF DULOXETINE DISCUSSED WITH PATIENT. PROCEDURE CODES FA211 ESTABILISHED PATIENT [facility] CHARGE DISPOSITION & COMMUNICATION FOLLOW UP 3 MONTHS ELECTRONICALLY SIGNED BY JULIUS DILLON ON 10/29/2018 AT 11:54 AM EDT DISCLAIMER : THIS IS A VISIT SUMMARY EXTRACTED FROM THE [employer] CHART. IT IS NOT A COPY OF THE [employer] PROGRESS NOTE. LUIS F
== END ==
LOC: M PAIN 09:00
PROVIDERS: ATTEND Nurse Practitioner Family
DX: M47.816 Spondylosis without myelopathy or radiculopathy, lumbar region (principal); M12.88 Other specific arthropathies, not elsewhere classified, other specified site; M54.16 Radiculopathy, lumbar region; Z79.899 Other long term (current) drug therapy; Z91.011 Allergy to milk products; J32.0 Chronic maxillary sinusitis; Z88.5 Allergy status to narcotic agent; Z88.2 Allergy status to sulfonamides; Z88.8 Allergy status to other drugs, medicaments and biological substances

== ENCOUNTER → 2019-01-20 | Outpatient (CLI) | payer OTHER ==
--- NOTE | 2019-01-24 01:27 | ECWPNPC ---
PATIENT NAME: CARMEN RODRIGUEZ : 1965 GENDER: FEMALE VISIT DATE: 01/20/2019 DISCHARGE DATE: 01/20/19 1134 VISIT LOCKED DATE TIME: PHYSICIAN: ANGELINA LEWIS RESOURCE: ANGELINA LEWIS REASON FOR APPOINTMENT 1. BACK PAIN PT OF SW HISTORY OF PRESENT ILLNESS HISTORY OF PRESENT ILLNESS: 53 YR OLD FEMALE WITH A HX OF CHRONIC LOWER PAIN FOR SEVERAL YEARS, HERE FOR A F/U. AT LAST VISIT SHE WAS STARTED ON 30 MG OF CYMBALTA WHICH SHE ADMITS IS WORKING TO HELP MANAGE HER PAIN. WHEN ASKED SHE SAYS HER PAIN IS AT 7/10. SHE DENIES MED SIDE EFFECTS AT THIS TIME AND HAS REQUESTED TO RESTART MELOXICAM. SHE IS 2 WEEKS POST SPINAL SURGERY. PAIN THE PATIENT DESCRIBES THE PAIN... THE PATIENT DESCRIBES THE PAINDURING THE LAST MONTH SEVERITY - PAIN SCORE OF4/10 FALL RISK SCREENING: SCREENING :NO FALLS REPORTED IN THE LAST YEAR CURRENT MEDICATIONS TAKING HYDROCHLOROTHIAZIDE 25 MG TABLET 1 TABLET ORALLY EVERY OTHER DAY TAKING IMITREX 6 MG/0.5ML SOLUTION SUBCUTANEOUS DIRECTED TAKING [id number] 50-325-40 MG CAPSULE 1 CAPSULE NEEDED ORALLY EVERY 4 HRS TAKING MAXALT 10 MG TABLET 1 TABLET NEEDED ONE TIME ORALLY ONCE A DAY TAKING VENTOLIN HFA 108 (90 BASE) MCG/ACT AEROSOL SOLUTION 2 PUFFS NEEDED INHALATION EVERY 4 HRS TAKING DUONEB PRN TAKING TYLENOL SINUS SEVERE 5-325-200 MG TABLET 2 TABLETS NEEDED ORALLY EVERY 4 HRS TAKING SINGULAIR 10 MG TABLET 1 TABLET IN THE EVENING ORALLY ONCE A DAY TAKING GABAPENTIN 300 MG CAPSULE 1 CAPSULE ORALLY TID TAKING BENZONATATE 100 MG CAPSULE 1 CAPSULE NEEDED ORALLY THREE TIMES A DAY TAKING FLUTICASONE PROPIONATE 50 MCG/ACT SUSPENSION 1 SPRAY IN EACH NOSTRIL NASALLY ONCE A DAY, NOTES: 03/20 TAKING DULOXETINE HCL 30 MG CAPSULE DELAYED RELEASE PARTICLES 1 CAPSULE ORALLY ONCE A DAY NOT-TAKING MELOXICAM 15 MG TABLET 1 TABLET ORALLY ONCE A DAY NOT-TAKING ATORVASTATIN CALCIUM 10 MG TABLET 1 TABLET ORALLY ONCE A DAY NOT-TAKING DIVALPROEX SODIUM 500 MG TABLET DELAYED RELEASE ORALLY BID NOT-TAKING ROPINIROLE HCL 0.5 MG TABLET 1 TABLET 1 TO 3 HOURS BEFORE BEDTIME ORALLY ONCE A DAY NOT-TAKING TIZANIDINE HCL 4 MG TABLET 1 TABLET NEEDED ORALLY BEFORE BEDTIME NOT-TAKING DEPAKOTE 250 MG TABLET DELAYED RELEASE ORALLY TWICE A DAY NOT-TAKING NASONEX 50 MCG/ACT SUSPENSION 2 SPRAYS IN EACH NOSTRIL NASALLY ONCE A DAY PRN, NOTES: NONE RECENT MEDICATION LIST REVIEWED AND RECONCILED WITH THE PATIENT PAST MEDICAL HISTORY MIGRAINES ASTHMA SINUS/PULMONARY INFECTIONS SCAR NEUROMA BACK PAIN RADIATING DOWN BOTH LEGS ALLERGIES MILK: DYSPNEA - ALLERGY ENVIRONMENTAL: DYSPNEA - ALLERGY TOPAMAX: JOINT ACHES - SIDE EFFECTS LEVAQUIN: ANAPHYLAXIS - ALLERGY TRAMADOL HCL: NAUSEA/VOMITING - ALLERGY [id number] (BOWEL PREP): NAUSEA/VOMITING - ALLERGY SURGICAL HISTORY UMBILICAL HERNIA REPAIR 2009 3 SINUS SURGERIES [id number] REMOVAL OF CYST GENITAL AREA 2009 TONSILLECTOMY AND PARTIAL REMOVAL UVULA 2011 BACK SURGERY 2014 D&C 2000 LOW BACK SURGERY 11/2018 FAMILY HISTORY FATHER: , DIAGNOSED WITH HYPERTENSION, CANCER MOTHER: ALIVE, HEART DISEASE, STROKE, CANCER, HYPERTENSION 1 BROTHER(S) , 3 SISTER(S) . 1 SON(S) - HEALTHY. MOM BREAST AND SKIN CA\NSON- ASTHMA AND HEADACHESSISTER SUICIDE, ONE SISTER ORGAN FAILUREBROTHER HEART DIEASE. SOCIAL HISTORY GENERAL: TOBACCO USE ARE YOU A:NONSMOKER OTHERS AT HOME: SPOUSE, CHILD, OTHER RELATIVE. EDUCATION LEVEL OF EDUCATION:NOT FINISHED COLLEGE DIET: REGULAR. LANGUAGE LANGUAGES SPOKEN:[place] DOMESTIC VIOLENCE DO YOU FEEL SAFE IN YOUR ENVIRONMENT?YES RECREATIONAL DRUG USE DRUG USE?NO EXERCISE: TREADMILL 30 MINS-1 HOURS 3-4X/WK. LEARNING BARRIERS / SPECIAL NEEDS BARRIERS TO LEARNING?NO HEARING IMPAIRED?NO VISION IMPAIRED?YES :CORRECTIVE LENSES COGNITIVELY IMPAIRED?NO READINESS TO LEARN?YES LEARNING PREFERENCES?NO LEARNING CAPABILITIES PRESENT?YES EMOTIONAL BARRIERS?NO SPECIAL DEVICES?NO OBSTETRICS GYN NEEDED?NO PAIN CLINIC PFS, CLERGY, PUBLIC HEALTH REFERRALS PFS REFERRAL NEEDED?NO CLERGY REFERRAL NEEDED?NO PUBLIC HEALTH REFERRAL NEEDED?NO WAS THE PROVIDER NOTIFIED OF ANY PERTINENT INFO?NO N/A HAS THE PATIENT BEEN EDUCATED REGARDING HIS/HER PLAN OF CARE?YES HAS THE PATIENT BEEN EDUCATED REGARDING PAIN, THE RISK FOR PAIN, THE IMPORTANCE OF EFFECTIVE PAIN MANAGEMENT, AND THE PAIN ASSESSMENT PROCESS?YES LATEX QUESTIONNAIRE LATEX ALLERGY : HAVE YOU EVER DEVELOPED ANY TYPE OF REACTION AFTER HANDLING LATEX PRODUCTS SUCH RUBBER GLOVES, CONDOMS, DIAPHRAGMS, BALLOONS, SOCKS, OR UNDERWEAR?NO LATEX ALLERGY : HAVE YOU EVER DEVELOPED ANY TYPE OF REACTION DURING OR AFTER DENTAL APPOINTMENT, VAGINAL/RECTAL EXAMINATION, SURGICAL PROCEDURE, OR ANY OTHER EXPOSURE?NO LATEX RISK : HAVE YOU EVER HAD ANY DIFFICULTY BREATHING OR HIVES AFTER EATING OR HANDLING ANY FRUITS, OR VEGETABLES; SUCH KIWI, BANANAS, STONE FRUITS, OR CHESTNUTSNO LATEX RISK : DO YOU HAVE A PREVIOUS PERSONAL HISTORY OF MORE THAN NINE SURGERIES, SPINA BIFIDA, OR REPEATED CATHERTIZATIONS? NO LATEX RISK : ARE YOU FREQUENTLY EXPOSED TO LATEX PRODUCTS IN YOUR OCCUPATION?NO DATE ASKED : 10/28/2018 CAFFEINE CAFFEINE USE?YES HOW OFTEN AND HOW MUCH? 1 COKE/DAY ADVANCE DIRECTIVE ADVANCE DIRECTIVE DISCUSSED WITH PATIENT:YES PT DOESN'T HAVE ANY ADVANCED DIRECTIVES AND DECLINED INFORMATION ON HCP AT THIS TIME. PT. DECLINES INFORMATION TAOIST [id number] NONE ALCOHOL SCREENING DID YOU HAVE A DRINK CONTAINING ALCOHOL IN THE PAST YEAR?NO POINTS0 INTERPRETATIONNEGATIVE 10/26/17 0900 REVIEWED. PT DECLINED INFORMATION ON ADVANCED DIRECTIVES AD02/10/18 1400 REVIEWED WITH PT. AD03/23/18 1420 REVIEWED WITH PT. AD04/22/18 1053 REVIEWED WITH PT LASREVIEWED WITH PT 06/03/18 [id number] BV. HOSPITALIZATION/MAJOR DIAGNOSTIC PROCEDURE ASTHMA RELATED SURGERIES REVIEW OF SYSTEMS REVIEWED BY: PROVIDER: FADI GARCIA . CONSTITUTIONAL: ANY CHANGE IN YOUR MEDICAL CONDITION? NO . CHILLS NO . FEVER NO . INFECTION: DO YOU HAVE NEW INFECTIONS? NO . DO YOU HAVE HISTORY OF MRSA? NO . MUSCULOSKELETAL: ANY NEW PATTERNS OF PAIN OR NUMBNESS? YES, HAD LOW BACK SURGERY AND PAIN HAS CHANGED TO THROBBING ALL THE TIME FROM SHOOTING PAIN. HAVE SHOOTING PAIN WHEN WALKING STAIRS . GASTROENTEROLOGY: ANY NEW CHANGE IN BOWEL CONTROL? NO . GENITOURINARY: ANY NEW CHANGE IN BLADDER CONTROL? NO . IS THERE A CHANCE YOU COULD BE ? NO . HEMATOLOGY/LYMPH: DO YOU TAKE ANY BLOOD THINNERS? (FOR EXAMPLE- COUMADIN, PLAVIX, AGGRENOX, PLATEL, PRADAXA, OR XARELTO) NO . WHEN WAS YOUR LAST DOSE? DATE: TIME: . NEUROLOGY: HAVE YOU FALLEN IN THE PAST 12 MONTHS? YES, PRIOR TO LAST VISIT . ANY NEW EXTREMITY NUMBNESS OR WEAKNESS? YES, BILAT LEG PAIN AND WEAKNESS AND THROBBING . CARDIOLOGY: DO YOU HAVE A PACEMAKER OR DEFIBRILLATOR? NO . RESPIRATORY: HAVE YOU BEEN SICK IN THE PAST WEEK? NO . FEVER NO . FLU LIKE SYMPTOMS? NO . COUGH NO . INTEGUMENTARY: DO YOU HAVE ANY RASHES OR OPEN SORES? YES, RASH UNDER BREASTS . ALLERGIC/IMMUNO: ARE YOU ALLERGIC TO IV DYE? NO . ANY NEW ALLERGIES? NO . PSYCHIATRIC: DO YOU HAVE THOUGHTS OF HURTING YOURSELF OR SOMEONE ELSE? NO . ARE YOU ABUSED, NEGLECTED, OR IN AN UNSAFE ENVIRONMENT? NO . ENDOCRINOLOGY: ARE YOU DIABETIC? NO . OTHER: DO YOU NEED ANY PRESCRIPTIONS? YES, DULOXETINE, NAMITA AND DISCUSS MELOXICAM . IF YES, PLEASE LIST: ____ . ANY NEW PROBLEMS WITH YOUR MEDICATIONS? NO . WHEN DID YOU LAST EAT? ____ . WHEN DID YOU LAST DRINK? ____ . WHAT DID YOU LAST DRINK? ____ . NAME OF PERSON DRIVING YOU HOME? ____ . DO YOU HAVE ANY OTHER QUESTIONS OR CONCERNS NO . VITAL SIGNS WT 196.2 LBS, HT 62 IN, BMI 35.88 INDEX, BP 157/72 MM HG, HR 100 /MIN, RR 18 /MIN, TEMP 97.0 F, OXYGEN SAT % 94%, NA INITIALS SC 10:52, REVIEWED BY: EM. EXAMINATION GENERAL EXAMINATION: GENERAL APPEARANCE:NO ACUTE DISTRESS, WELL NOURISHED AND HYDRATED. PSYCHAPPROPRIATE MOOD AND AFFECT . LUNGS:CLEAR TO AUSCULTATION BILATERALLY, NO WHEEZES, RHONCHI, RALES. HEART:NO MURMURS, REGULAR RATE AND RHYTHM. BACK: HEALING LINEAR SCAR L2-L5. TENDERNESS TO PLAPATION TO LUMBAR SPINE AND PARASPINAL MUSCLES. NORMAL GAIT.. ASSESSMENTS INTERVERTEBRAL DISC DISORDER WITH RADICULOPATHY OF LUMBAR REGION - M51.16 (PRIMARY) SPONDYLOSIS WITHOUT MYELOPATHY OR RADICULOPATHY, LUMBAR REGION - M47.816 TREATMENT INTERVERTEBRAL DISC DISORDER WITH RADICULOPATHY OF LUMBAR REGION CONTINUE GABAPENTIN CAPSULE, 300 MG, 1 CAPSULE, ORALLY, TID CLINICAL NOTES: 53 YEAR OLD FEMALE IN FOR FOLLOW UP CHRONIC PAIN VISIT. SHE WAS STARTED ON DULOXETINE AT LAST CLINIC VISIT WHICH SHE FEELS IS WORKING WELL ALTHOUGH SHE IS STILL HAVING SYMPTOMS. DISCUSSED CYMBALTA AND PAIN WITH PATIENT AND RECOMMENDED INCREASING CYMBALTA TO 60 MG DAILY WITH FOLLOW UP IN 2 MONTHS TO DETERMINE EFFICACY OF TREATMENT. POTENTIAL MED SIDE EFFECTS FROM SUDDEN CESSATION OF CYMBALTA WAS DISCUSSED WITH PATIENT. PATIENT WAS INFORMED THAT WE COULD NOT START MELOXICAM AT THIS TIME RELATED TO RECENT SPINAL SURGERY. PATIENT HAS EXPRESSED UNDERSTANDING OF AND WAS IN AGREEMENT WITH TX PLAN. . SPONDYLOSIS WITHOUT MYELOPATHY OR RADICULOPATHY, LUMBAR REGION INCREASE DULOXETINE HCL CAPSULE DELAYED RELEASE PARTICLES, 60 MG, 1 CAPSULE, ORALLY, ONCE A DAY PROCEDURE CODES FA211 ESTABILISHED PATIENT [facility] CHARGE DISPOSITION & COMMUNICATION FOLLOW UP 2 MONTHS (REASON: CHRONIC PAIN/MED CHANGE) ELECTRONICALLY SIGNED BY JULIUS VERNON ON 01/20/2019 AT 04:01 PM EDT DISCLAIMER : THIS IS A VISIT SUMMARY EXTRACTED FROM THE [employer] CHART. IT IS NOT A COPY OF THE [employer] PROGRESS NOTE. LUIS F
== END ==
LOC: M PAIN 10:30
PROVIDERS: ATTEND Nurse Practitioner Family
DX: M51.16 Intervertebral disc disorders with radiculopathy, lumbar region (principal); M47.816 Spondylosis without myelopathy or radiculopathy, lumbar region; G43.909 Migraine, unspecified, not intractable, without status migrainosus; J45.909 Unspecified asthma, uncomplicated; Z79.899 Other long term (current) drug therapy; Z91.011 Allergy to milk products; Z88.5 Allergy status to narcotic agent; Z88.1 Allergy status to other antibiotic agents; Z88.8 Allergy status to other drugs, medicaments and biological substances

== ENCOUNTER → 2019-03-07 | Outpatient (CLI) | payer OTHER ==
--- NOTE | 2019-03-09 01:13 | ECWPNPC ---
PATIENT NAME: CARMEN RODRIGUEZ : 1965 GENDER: FEMALE VISIT DATE: 03/07/2019 DISCHARGE DATE: 03/07/19 1435 VISIT LOCKED DATE TIME: PHYSICIAN: ANGELINA LEWIS RESOURCE: ANGELINA LEWIS REASON FOR APPOINTMENT 1. CHRONIC PAIN/MED CHANGE HISTORY OF PRESENT ILLNESS HISTORY OF PRESENT ILLNESS: PAIN THE PATIENT DESCRIBES THE PAIN... 53 YEAR OLD FEMALE IN FOR FOLLOW UP AFTER A MEDICATION CHANGE AT HER LAST VISIT. SHE FEELS THE MEDICATIONS ARE WORKING WELL AND RATES HER PAIN AT A 4/10 CURRENTLY. SHE DESCRIBES HER PAIN STABBING, SHARP, AND SORE. FALL RISK SCREENING: SCREENING :NO FALLS REPORTED IN THE LAST YEAR CURRENT MEDICATIONS TAKING HYDROCHLOROTHIAZIDE 25 MG TABLET 1 TABLET ORALLY EVERY OTHER DAY TAKING IMITREX 6 MG/0.5ML SOLUTION SUBCUTANEOUS DIRECTED TAKING [id number] 50-325-40 MG CAPSULE 1 CAPSULE NEEDED ORALLY EVERY 4 HRS TAKING MAXALT 10 MG TABLET 1 TABLET NEEDED ONE TIME ORALLY ONCE A DAY TAKING VENTOLIN HFA 108 (90 BASE) MCG/ACT AEROSOL SOLUTION 2 PUFFS NEEDED INHALATION EVERY 4 HRS TAKING DUONEB PRN TAKING TYLENOL SINUS SEVERE 5-325-200 MG TABLET 2 TABLETS NEEDED ORALLY EVERY 4 HRS TAKING SINGULAIR 10 MG TABLET 1 TABLET IN THE EVENING ORALLY ONCE A DAY TAKING BENZONATATE 100 MG CAPSULE 1 CAPSULE NEEDED ORALLY THREE TIMES A DAY TAKING FLUTICASONE PROPIONATE 50 MCG/ACT SUSPENSION 1 SPRAY IN EACH NOSTRIL NASALLY ONCE A DAY, NOTES: 03/20 TAKING GABAPENTIN 300 MG CAPSULE 1 CAPSULE ORALLY TID TAKING DULOXETINE HCL 60 MG CAPSULE DELAYED RELEASE PARTICLES 1 CAPSULE ORALLY ONCE A DAY NOT-TAKING MELOXICAM 15 MG TABLET 1 TABLET ORALLY ONCE A DAY NOT-TAKING ATORVASTATIN CALCIUM 10 MG TABLET 1 TABLET ORALLY ONCE A DAY NOT-TAKING DIVALPROEX SODIUM 500 MG TABLET DELAYED RELEASE ORALLY BID NOT-TAKING ROPINIROLE HCL 0.5 MG TABLET 1 TABLET 1 TO 3 HOURS BEFORE BEDTIME ORALLY ONCE A DAY NOT-TAKING TIZANIDINE HCL 4 MG TABLET 1 TABLET NEEDED ORALLY BEFORE BEDTIME NOT-TAKING DEPAKOTE 250 MG TABLET DELAYED RELEASE ORALLY TWICE A DAY NOT-TAKING NASONEX 50 MCG/ACT SUSPENSION 2 SPRAYS IN EACH NOSTRIL NASALLY ONCE A DAY PRN, NOTES: NONE RECENT MEDICATION LIST REVIEWED AND RECONCILED WITH THE PATIENT PAST MEDICAL HISTORY MIGRAINES ASTHMA SINUS/PULMONARY INFECTIONS SCAR NEUROMA BACK PAIN RADIATING DOWN BOTH LEGS NERVE LEFT LOWER LEG THORACIC PAIN MYALGIA LUMBAR FACET ARTHROPATHY ALLERGIES MILK: DYSPNEA - ALLERGY ENVIRONMENTAL: DYSPNEA - ALLERGY TOPAMAX: JOINT ACHES - SIDE EFFECTS LEVAQUIN: ANAPHYLAXIS - ALLERGY TRAMADOL HCL: NAUSEA/VOMITING - SIDE EFFECTS [id number] (BOWEL PREP): NAUSEA/VOMITING SURGICAL HISTORY UMBILICAL HERNIA REPAIR 2010 3 SINUS SURGERIES [id number] REMOVAL OF CYST GENITAL AREA 2008 TONSILLECTOMY AND PARTIAL REMOVAL UVULA 2011 BACK SURGERY 2014 D&C 2001 LOW BACK SURGERY 11/2018 FAMILY HISTORY FATHER: , DIAGNOSED WITH HYPERTENSION, CANCER MOTHER: ALIVE, STROKE, CANCER, HYPERTENSION, HEART DISEASE 1 BROTHER(S) , 3 SISTER(S) . 1 SON(S) - HEALTHY. MOM BREAST AND SKIN CA\\NSON- ASTHMA AND HEADACHESSISTER SUICIDE, ONE SISTER ORGAN FAILUREBROTHER HEART DIEASE. SOCIAL HISTORY GENERAL: TOBACCO USE ARE YOU A:NONSMOKER OTHERS AT HOME: SPOUSE, CHILD, OTHER RELATIVE. EDUCATION LEVEL OF EDUCATION:NOT FINISHED COLLEGE DIET: REGULAR. LANGUAGE LANGUAGES SPOKEN:SRI LANKAN DOMESTIC VIOLENCE DO YOU FEEL SAFE IN YOUR ENVIRONMENT?YES RECREATIONAL DRUG USE DRUG USE?NO EXERCISE: TREADMILL 30 MINS-1 HOURS 3-4X/WK. LEARNING BARRIERS / SPECIAL NEEDS BARRIERS TO LEARNING?NO HEARING IMPAIRED?NO VISION IMPAIRED?YES :CORRECTIVE LENSES COGNITIVELY IMPAIRED?NO READINESS TO LEARN?YES LEARNING PREFERENCES?NO LEARNING CAPABILITIES PRESENT?YES EMOTIONAL BARRIERS?NO SPECIAL DEVICES?NO PUBLIC BATH ATTENDANT NEEDED?NO PAIN CLINIC PFS, CLERGY, PUBLIC HEALTH REFERRALS PFS REFERRAL NEEDED?NO CLERGY REFERRAL NEEDED?NO PUBLIC HEALTH REFERRAL NEEDED?NO WAS THE PROVIDER NOTIFIED OF ANY PERTINENT INFO? N/A HAS THE PATIENT BEEN EDUCATED REGARDING HIS/HER PLAN OF CARE?YES HAS THE PATIENT BEEN EDUCATED REGARDING PAIN, THE RISK FOR PAIN, THE IMPORTANCE OF EFFECTIVE PAIN MANAGEMENT, AND THE PAIN ASSESSMENT PROCESS?YES LATEX QUESTIONNAIRE LATEX ALLERGY : HAVE YOU EVER DEVELOPED ANY TYPE OF REACTION AFTER HANDLING LATEX PRODUCTS SUCH RUBBER GLOVES, CONDOMS, DIAPHRAGMS, BALLOONS, SOCKS, OR UNDERWEAR?NO LATEX ALLERGY : HAVE YOU EVER DEVELOPED ANY TYPE OF REACTION DURING OR AFTER DENTAL APPOINTMENT, VAGINAL/RECTAL EXAMINATION, SURGICAL PROCEDURE, OR ANY OTHER EXPOSURE?NO LATEX RISK : HAVE YOU EVER HAD ANY DIFFICULTY BREATHING OR HIVES AFTER EATING OR HANDLING ANY FRUITS, OR VEGETABLES; SUCH KIWI, BANANAS, STONE FRUITS, OR CHESTNUTSNO LATEX RISK : DO YOU HAVE A PREVIOUS PERSONAL HISTORY OF MORE THAN NINE SURGERIES, SPINA BIFIDA, OR REPEATED CATHERIZATIONS? NO LATEX RISK : ARE YOU FREQUENTLY EXPOSED TO LATEX PRODUCTS IN YOUR OCCUPATION?NO DATE ASKED : 03/07/2019 CAFFEINE CAFFEINE USE?YES HOW OFTEN AND HOW MUCH? 1 COKE/DAY ADVANCE DIRECTIVE ADVANCE DIRECTIVE DISCUSSED WITH PATIENT:YES 03/07/19 PT DOESN'T HAVE ANY ADVANCED DIRECTIVES AND DECLINED INFORMATION ON HCP AT THIS TIME. AD MORMON [id number] NONE ALCOHOL SCREENING DID YOU HAVE A DRINK CONTAINING ALCOHOL IN THE PAST YEAR?NO POINTS0 INTERPRETATIONNEGATIVE 10/26/17 0900 REVIEWED. PT DECLINED INFORMATION ON ADVANCED DIRECTIVES AD02/10/18 1400 REVIEWED WITH PT. AD03/23/18 1420 REVIEWED WITH PT. AD04/22/18 1053 REVIEWED WITH PT LASREVIEWED WITH PT 06/03/18 1100 BV. HOSPITALIZATION/MAJOR DIAGNOSTIC PROCEDURE ASTHMA RELATED SURGERIES REVIEW OF SYSTEMS REVIEWED BY: PROVIDER: FADI GARCIA . CONSTITUTIONAL: CHILLS NO . FEVER NO . INFECTION: DO YOU HAVE NEW INFECTIONS? NO . DO YOU HAVE HISTORY OF MRSA? NO . MUSCULOSKELETAL: ANY NEW PATTERNS OF PAIN OR NUMBNESS? NO . GASTROENTEROLOGY: ANY NEW CHANGE IN BOWEL CONTROL? NO . GENITOURINARY: ANY NEW CHANGE IN BLADDER CONTROL? NO . IS THERE A CHANCE YOU COULD BE ? NO . HEMATOLOGY/LYMPH: DO YOU TAKE ANY BLOOD THINNERS? (FOR EXAMPLE- COUMADIN, PLAVIX, AGGRENOX, PLATEL, PRADAXA, OR XARELTO) NO . WHEN WAS YOUR LAST DOSE? DATE: TIME: . NEUROLOGY: HAVE YOU FALLEN IN THE PAST 12 MONTHS? NO . ANY NEW EXTREMITY NUMBNESS OR WEAKNESS? NO . CARDIOLOGY: DO YOU HAVE A PACEMAKER OR DEFIBRILLATOR? NO . RESPIRATORY: HAVE YOU BEEN SICK IN THE PAST WEEK? NO . FEVER NO . FLU LIKE SYMPTOMS? NO . COUGH CON'T BARKING, NON-PRODUCTIVE THAT SHE FEELS IT IS DUE TO HER ASTHMA . INTEGUMENTARY: DO YOU HAVE ANY RASHES OR OPEN SORES? NO . ALLERGIC/IMMUNO: ARE YOU ALLERGIC TO IV DYE? NO . ANY NEW ALLERGIES? NO . PSYCHIATRIC: DO YOU HAVE THOUGHTS OF HURTING YOURSELF OR SOMEONE ELSE? NO . ARE YOU ABUSED, NEGLECTED, OR IN AN UNSAFE ENVIRONMENT? NO . ENDOCRINOLOGY: ARE YOU DIABETIC? NO . OTHER: DO YOU NEED ANY PRESCRIPTIONS? NO . IF YES, PLEASE LIST: ____ . ANY NEW PROBLEMS WITH YOUR MEDICATIONS? NO . WHEN DID YOU LAST EAT? ____ . WHEN DID YOU LAST DRINK? ____ . WHAT DID YOU LAST DRINK? ____ . NAME OF PERSON DRIVING YOU HOME? ____ . DO YOU HAVE ANY OTHER QUESTIONS OR CONCERNS YES "? JOINT PAIN ARTHRITIS" . VITAL SIGNS WT 204.8 LBS, HT 62 IN, BMI 37.45 INDEX, BP 172/97 MM HG, REPEAT BP 133/86 MM HG, HR 115 /MIN, RR 18 /MIN, TEMP 97.2 F, OXYGEN SAT % 96%, SAFE IN ENV? (Y/N) Y, NA INITIALS AW 1356, REVIEWED BY: KWABENA. EXAMINATION GENERAL EXAMINATION: GENERALNO ACUTE DISTRESS, WELL NOURISHED AND HYDRATED. PSYCHAPPROPRIATE MOOD AND AFFECT . LUNGS:CLEAR TO AUSCULTATION BILATERALLY, NO WHEEZES, RHONCHI, RALES. HEART:NO MURMURS, REGULAR RATE AND RHYTHM. ASSESSMENTS LUMBAR BACK PAIN WITH RADICULOPATHY AFFECTING RIGHT LOWER EXTREMITY - M54.16 (PRIMARY) TREATMENT LUMBAR BACK PAIN WITH RADICULOPATHY AFFECTING RIGHT LOWER EXTREMITY CLINICAL NOTES: 53 YEAR OLD FEMALE IN FOR CHRONIC PAIN FOLLOW UP. GIVEN PRESENTING SYMPTOMS AND RESULTS OF PHYSICAL EXAMINATION RECOMMENDED CONTINUATION OF CURRENT MEDICATION REGIMEN WITH FOLLOW UP IN 3 MONTHS. PATIENT HAS EXPRESSED UNDERSTANDING OF AND WAS IN AGREEMENT WITH TREATMENT PLAN. GIVEN TIME TO ASK QUESTIONS AND EXPRESS CONCERNS. PROCEDURE CODES FA211 ESTABILISHED PATIENT [facility] CHARGE DISPOSITION & COMMUNICATION FOLLOW UP 3 MONTHS (REASON: CHRONIC PAIN ) ELECTRONICALLY SIGNED BY JULIUS VERNON ON 03/08/2019 AT 09:18 AM EDT DISCLAIMER : THIS IS A VISIT SUMMARY EXTRACTED FROM THE [employer] CHART. IT IS NOT A COPY OF THE [employer] PROGRESS NOTE. LUIS F
== END ==
LOC: M PAIN 13:45
PROVIDERS: ATTEND Family Medicine
DX: M54.16 Radiculopathy, lumbar region (principal); G89.29 Other chronic pain; Z79.899 Other long term (current) drug therapy; J30.2 Other seasonal allergic rhinitis; Z88.8 Allergy status to other drugs, medicaments and biological substances; Z91.011 Allergy to milk products

== ENCOUNTER → 2019-05-11 | Outpatient (REF) | payer OTHER ==
[2019-05-11 15:22] LABS: BASO % 0.5 % (0.0-1.0); EOS # 0.4 10^3/uL (0.0-0.5); HEMATOCRIT 38.7 % (36.0-47.0); LYMPH # 2.1 10^3/uL (1.5-5.0); LYMPH % 24.4 % (24.0-44.0); MEAN CORPUSCULAR HGB CONC 33.6 g/dl (32.0-36.5); MEAN CORPUSCULAR VOLUME 89.4 fl (80.0-96.0); MONO # 0.5 10^3/uL (0.0-0.8); MONO % 6.2 % (0.0-5.0); NEUTROPHILS # 5.6 10^3/uL (1.5-8.5); NEUTROPHILS % 64.4 % (36.0-66.0); PLATELET COUNT, AUTOMATED 357 10^3/uL (150-450); RED BLOOD COUNT 4.33 10^6/uL (4.00-5.40); WHITE BLOOD COUNT 8.7 10^3/uL (4.0-10.0)
[2019-05-11 15:44] LABS: RHEUMATOID FACTOR QUANT < 10.0 IU/ML (<15.0); URIC ACID 6.3 MG/DL (2.6-6.0)
[2019-05-11 15:47] LABS: ERYTHROCYTE SEDIMENTATION RATE 18 mm/hr (0-30)
[2019-05-14 00:07] LABS: ANTINUCLEAR ANTIBODIES DIRECT Negative (Negative); Lyme Disease IgG/IgM Antibodie <0.91 ISR (0.00-0.90); Lyme Disease IgM Ab Quantitati <0.80 index (0.00-0.79)
== END ==
LOC: M LABNEURO 14:44
PROVIDERS: ATTEND Physician Assistant Medical
DX: M25.572 Pain in left ankle and joints of left foot (principal)

== ENCOUNTER 2020-01-09 06:54 | Observation (INO) | payer OTHER ==
[~2020-01-09] VITALS: Ht 157.5 cm; Wt 98.4 kg
[~2020-01-09 06:54] MED LIST changes: +CYCL-707 PO; -CYCL10TA PO
[2020-01-09] MEDS ORDERED: MORPHINE 4 MG/ML 1ML VIAL/SYRINGE (J2270) IV ONE ×2 (07:30→17:00)
[2020-01-09] MEDS ORDERED: IPRA0.00 INH (07:37)
[2020-01-09] MEDS ORDERED: HYDR25TAB PO (07:37)
[2020-01-09] MEDS ORDERED: ROPI0.5T3 PO (07:37)
[2020-01-09] MEDS ORDERED: DIVA500T94 PO (07:37)
--- NOTE | 2020-01-09 08:20 | REP ---
Clinical: Trauma. Technique: AP, lateral, bilateral oblique views of the right and left foot. Findings: Left foot demonstrates age-related changes without obvious acute fracture or dislocation. Ankle swelling. Right foot demonstrates age-related changes. Small corticated loose bodies along the medial aspect of the navicular bone likely represent small unfused ossicles. Ankle swelling and ankle fractures are incompletely evaluated. Impression: 1. Right ankle fractures incompletely evaluated. 2. Left ankle swelling. 3. No obvious acute right or left foot injury. Electronically Signed by Bean Vick MD 01/09/2020 08:11 A
--- NOTE | 2020-01-09 08:21 | REP ---
BILATERAL ANKLE SERIES: Eight views. HISTORY: Trauma. FINDINGS: Four views of the left ankle demonstrate soft tissue swelling. Ankle mortise is intact. On the lateral radiograph, there are three tiny calcific densities at the anterior aspect of the ankle joint line, which could reflect avulsion fracture or chip fracture fragments. The largest of these appears corticated. It may be old. IMPRESSION: Bone fragments at the anterior joint line of the left ankle on the lateral radiograph question old versus recent chip fracture. Diffuse soft tissue swelling. Right ankle radiographic views demonstrate a right ankle fracture dislocation. The talus is dislocated posteriorly and laterally with respect to the distal tibia. A chip fracture of the posterior tibial malleolus is suspected on the lateral radiograph. There is a comminuted fracture of the distal diaphysis of the fibula with apex anterior angulation. There is also evidence of a chip fracture of the lateral malleolar tip as well. IMPRESSION: Fracture dislocation right ankle with posterior tibial malleolar fracture suspected and two distal fibular fracture sites noted. Posterior and lateral dislocation of the talus relative to the tibia. Electronically Signed by Jarred Tolentino MD 01/09/2020 02:51 P
[2020-01-09] MEDS ORDERED: NS 1,000 ML IV SCH (08:45)
[2020-01-09] MEDS ORDERED: fentaNYL 100 MCG/2 ML INJECTION (J3010) IV ONE (08:45)
[2020-01-09] MEDS ORDERED: ONDANSETRON 4MG/2ML VIAL IV ONE (08:45)
[2020-01-09 09:35] LABS: HEMATOCRIT 36.8 % (36.0-47.0); HEMOGLOBIN 12.3 g/dl (12.0-15.5); MEAN CORPUSCULAR HEMOGLOBIN 31.4 pg (27.0-33.0); MEAN CORPUSCULAR HGB CONC 33.4 g/dl (32.0-36.5); MEAN CORPUSCULAR VOLUME 93.9 fl (80.0-96.0); PLATELET COUNT, AUTOMATED 298 10^3/uL (150-450); RED BLOOD COUNT 3.92 10^6/uL (4.00-5.40); WHITE BLOOD COUNT 7.2 10^3/uL (4.0-10.0)
[2020-01-09] MEDS ORDERED: RIZA10TA58 SL (09:40)
[2020-01-09] MEDS ORDERED: ARNU1INH3 INH (09:40)
[2020-01-09] MEDS ORDERED: VITMTA PO (09:40)
[2020-01-09] MEDS ORDERED: ALBU8.5H INH (09:40)
[2020-01-09] MEDS ORDERED: BUTA-198 PO (09:40)
[2020-01-09] MEDS ORDERED: EXCETAB33 PO (09:40)
[2020-01-09] MEDS ORDERED: MONT10TA4 PO (09:40)
[2020-01-09 09:46] LABS: INR 0.95; PROTHROMBIN TIME 12.4 SECONDS (11.8-14.0)
[2020-01-09 09:47] LABS: PARTIAL THROMBOPLASTIN TIME 31.2 SECONDS (25.0-38.4)
[2020-01-09 09:59] LABS: BLOOD UREA NITROGEN 15 MG/DL (7-18); CALCIUM LEVEL 8.7 MG/DL (8.5-10.1); CARBON DIOXIDE LEVEL 25 MEQ/L (21-32); CHLORIDE LEVEL 108 MEQ/L (98-107); CREATININE FOR GFR 0.82 MG/DL (0.55-1.30); GLOMERULAR FILTRATION RATE > 60.0 (>51); GLUCOSE, FASTING 137 MG/DL (70-100); POTASSIUM SERUM 4.1 MEQ/L (3.5-5.1); SODIUM LEVEL 142 MEQ/L (136-145)
--- NOTE | 2020-01-09 10:21 | REP ---
REASON: Closed reduction. COMPARISON: Earlier today. Overlying casting material obscures the detail. Previously described fractures have been reduced in a closed fashion. There is persistent lateral tibiotalar subluxation with marked widening of the medial mortise. The proximal fibular fracture is not included in the radiograph in the lateral view. As above, posterior tibiotalar dislocation has been reduced, however, there is persistent medial subluxation of the mortise with marked medial widening. The previously described fractures are again noted and have been reduced to near anatomical position, however, the lateral view did not included the fibular diaphyseal fracture. A repeat exam would be necessary to included that fracture. IMPRESSION: Closed reduction as described above. Electronically Signed by Jerald Flores DO 01/09/2020 04:01 P
--- NOTE | 2020-01-09 10:41 | CR.PDOC ---
General Date of Consultation: Jan 09, 2020 Referring Provider: DION MCCABE MD Consultation REASON FOR CONSULTATION/CHIEF COMPLAINT: Preop clearance. HISTORY OF PRESENT ILLNESS: This is 54 years old, obese, white female with past medical history of asthma, migraine headaches, sinus pulmonary infection, neuroma, back pain, neck pain, generalized myalgia, lumbar facet arthropathy, sustained a mechanical fall while carrying laundry downstairs this morning and injured her both ankles. On x-ray, right ankle is obvious deformity, unable to bear weight. Left ankle was noted to have swelling but no fracture. Patient is a scheduled for emergency surgery by orthopedics this afternoon, patient denies any complaint, such as chest pain, shortness of breath, nausea, vomiting except pain at the fracture site.. ALLERGIES: Please see below. HOME MEDICATIONS: Please see below. PAST MEDICAL HISTORY: , Migraines, asthma, sinus pulmonary infections, neuroma, back pain, neck pain, myalgia PAST SURGICAL HISTORY: I'm like a hernia repair in 2009 ,3 sinus surgeries from 199904/27/2013, removal of cyst from genital area 2008, tonsillectomy and partial removal of uvula 2011, and back surgery in 2014 FAMILY HISTORY: . Father diagnosed with hypertension and cancer, mother is alive, had a history of stroke, cancer and hypertension and heart disease SOCIAL HISTORY: , , never smoked. Lives with family. Denies alcohol or drug abuse REVIEW OF SYSTEMS: CONSTITUTIONAL: , No headache or weakness. HEENT: , No head no head pain, ear pain or eye pain. CARDIOVASCULAR: . No chest pain or palpitation. RESPIRATORY: No cough or shortness of breath. GENITOURINARY: , No dysuria, frequency. MUSCULOSKELETAL: Complaining of pain at both ankles. GASTROINTESTINAL: , No nausea, vomiting, diarrhea. SKIN: , No rash or vesicles. NEUROLOGICAL: . No weakness or cranial nerve deficit. PSYCHIATRIC: No anxiety or depression. ENDOCRINE: , No diabetes or thyroid problem. HEMATOLOGIC/LYMPHATIC: No anemia or leukemia. ALLERGIC/IMMUNOLOGIC: History of seasonal allergies. PHYSICAL EXAMINATION: VITAL SIGNS: Please see below. GENERAL APPEARANCE: Patient is comfortable in no apparent distress. Her both ankles are elevated on a pillow. HEENT: . HEENT PERRLA. Extraocular muscles intact. RESPIRATORY: Clear to A&P. CARDIOVASCULAR: S1, S2, regular. ABDOMEN: Benign. EXTREMITIES: After cast on the right ankle. Distal pulses equal bilaterally. NEUROLOGICAL: . No focal motor sensory deficit. PSYCHIATRIC: Normal. LABORATORY DATA: EKG is normal sinus rhythm, no acute ST-T changes Foot x-ray shows right ankle fracture and left ankle swelling, 4 WBC count of 7.2, hemoglobin 12.3, platelets 298 and hematocrit 36.8 , Electrolytes are normal with BUN 15, creatinine 0.82 and INR is 0.95 ASSESSMENT/PLAN: #1. Right ankle fracture secondary to mechanical fall #2. History of asthma, stable, On no steroids #3. Chronic back and neck pain. Follows up with pain management on nonnarcotic meds #4. History of migraine headaches: On multiple meds Patient is medically stable and cleared for surgery Risk assessment ASA class II Patient does not take prednisone or any other steroids as there is no need for stress dose of steroids before surgery Also, patient does not take any narcotics, so postop pain management should consider mild dose of narcotic for pain management if needed Continue all home meds postop including inhalers Early ambulation Incentive spirometer postop DVT prophylaxis as per orthopedic Vital Signs/I&O Vital Signs Date Time Temp Pulse Resp B/P (MAP) Pulse Ox O2 Delivery O2 Flow Rate FiO2 01/09/20 08:51 80 18 134/83 96 Nasal Cannula 2.0 01/09/20 07:05 96.2 Laboratory Data Labs 24H Laboratory Tests 2 01/09/20 09:06: Nucleated Red Blood Cells % (auto) 0.0, Prothrombin Time 12.4, Prothromb Time International Ratio 0.95, Activated Partial Thromboplast Time 31.2, Anion Gap 9, Glomerular Filtration Rate > 60.0, Calcium Level 8.7 CBC/BMP Laboratory Tests 01/09/20 09:06 Microbiology Microbiology 01/09/20 Respiratory Virus Panel (PCR) (PRABHAKAR) - Final, Complete Allergies Coded Allergies: levofloxacin (Verified Allergy, Intermediate, rash, 01/09/20) topiramate (Verified Allergy, Intermediate, joint pain, 01/09/20) Home Medications Scheduled Divalproex Sodium (Divalproex Sodium) 500 Mg Tablet.dr, 500 MG PO BID, (Reported) Fluticasone Furoate (Arnuity Ellipta) 200 Mcg Blst.w.dev, 1 PUFF INH QHS, (Reported) Hydrochlorothiazide (Hydrochlorothiazide) 25 Mg Tablet, 25 MG PO QHS, (Reported) Montelukast Sodium (Montelukast Sodium) 10 Mg Tablet, 10 MG PO QHS, (Reported) Multivitamins (Thera M Plus Tablet) 1 Each Tablet, 1 TAB PO DAILY, (Reported) Ropinirole HCl (Ropinirole HCl) 0.5 Mg Tablet, 0.5 MG PO QHS, (Reported) Scheduled PRN Albuterol Sulfate (Albuterol Sulfate Hfa) 8.5 Gm Hfa.aer.ad, 2 PUFF INH QID PRN for SHORTNESS OF BREATH, (Reported) Aspirin/Acetaminophen/Caffeine (Excedrin Migraine Caplet) 1 Each Tablet, 1 TAB PO DAILY PRN for HEADACHE, (Reported) Butalb/Acetaminophen/Caffeine (Niyzua-Xwaisyvz-Cral 50-325-40) 1 Each Tablet, 1 TAB PO BID PRN for MIGRAINE, (Reported) Ipratropium/Albuterol Sulfate (Iprat-Albut 0.5-3(2.5) mg/3 ml) 3 Ml Ampul.neb, 3 ML INH Q4H PRN for SHORTNESS OF BREATH, (Reported) Rizatriptan Benzoate (Rizatriptan) 10 Mg Tab.rapdis, 10 MG SL BID PRN for MIGRAINE, (Reported) JOHN LAW MD Jan 09, 2020 10:41
[2020-01-09 15:15] VITALS: BP 123/73
[2020-01-09] MEDS ORDERED: LR 1,000 ML IV SCH ×3 (15:30→22:15)
[2020-01-09] MEDS ORDERED: MORPHINE 2 MG/ML 1ML VIAL (J2270) IV PRN (15:30)
[2020-01-09] MEDS ORDERED: ceFAZolin 2 GM/D5W 50 ML IV BAG (J0690 PER 500MG) As Ordered ONE (18:49)
[2020-01-09] MEDS ORDERED: BUPIVACAINE HCL 0.5% 30 ML VIAL As Ordered ONE (19:09)
[2020-01-09] MEDS ORDERED: ROCURONIUM BROMIDE 50 MG/5 ML VIAL As Ordered ONE (19:23)
[2020-01-09] MEDS ORDERED: ONDANSETRON 4MG/2ML VIAL As Ordered ONE (19:23)
[2020-01-09] MEDS ORDERED: LIDOCAINE 2% 100MG/5ML SDV (FOR ANES.) As Ordered ONE (19:23)
[2020-01-09] MEDS ORDERED: SUGAMMADEX SODIUM 500 MG/5 ML VIAL (BRIDION) As Ordered ONE (19:23)
[2020-01-09] MEDS ORDERED: METOCLOPRAMIDE INJ 10MG/2ML VIAL (J2765 PER 1) As Ordered ONE (19:23)
[2020-01-09] MEDS ORDERED: propofoL 200 MG/20 ML VIAL As Ordered ONE (19:23)
[2020-01-09] MEDS ORDERED: MIDAZOLAM INJ 2MG/2ML VIAL (J2250 PER 1MG) As Ordered ONE (19:23)
[2020-01-09] MEDS ORDERED: fentaNYL 250 MCG/5 ML INJECTION (J3010) As Ordered ONE (19:23)
[2020-01-09] MEDS ORDERED: dexameTHASONE 4 MG/ML 1ML VIAL (J1100 PER 1MG) As Ordered ONE (19:23)
[2020-01-09] MEDS ORDERED: ACETAMINOPHEN 1000MG 100ML IV BTL (OFIRMEV) (J0131 PER 10MG) As Ordered ONE (19:24)
[2020-01-09] MEDS ORDERED: HYDROmorphone HCL 2 MG/ML 1ML VIAL (J1170) As Ordered ONE (19:39)
--- NOTE | 2020-01-09 21:30 | ECGEPIP ---
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 Order Number: [id number] Reading MD: Emiliano Bradford Measurements Intervals [place] Rate: 74 P: 39 NC: 146 QRS: 9 QRSD: 81 T: 26 QT: 399 QTc: 444 Interpretive Statements SINUS RHYTHM LOW QRS VOLTAGE IN PRECORDIAL LEADS SIMILAR TO 09/17/18 Electronically Signed on 01-09-2020 21:30:43 EDT by Emiliano Bradford
[2020-01-09] MEDS ORDERED: fentaNYL 100 MCG/2 ML INJECTION (J3010) IV PRN (22:15)
[2020-01-09] MEDS ORDERED: ONDANSETRON 4MG/2ML VIAL IV PRN (22:15)
[2020-01-09] MEDS ORDERED: oxyCODONE 5MG TAB PO PRN ×2 (22:15)
[2020-01-09 22:30] VITALS: BP 141/77
[2020-01-09 23:00] VITALS: BP 139/76
[2020-01-10] VITALS: BP 139/77
[2020-01-10 01:00] VITALS: BP 135/74
[2020-01-10] MEDS: MORPHINE 2 MG/ML 1ML VIAL (J2270) IV PRN ×2 (01:34→05:30)
[2020-01-10 02:00] VITALS: BP 136/76
[2020-01-10 03:00] VITALS: BP 133/67
[2020-01-10] MEDS: oxyCODONE 5MG TAB PO PRN ×3 (03:50→17:48)
[2020-01-10] MEDS: ACETAMINOPHEN 500 MG TAB PO SCH ×2 (04:51→11:44)
[2020-01-10] MEDS: ceFAZolin SOD 2 GM in IV 1 EA IV SCH ×2 (04:51→12:07)
[2020-01-10] MEDS ORDERED: XARE10TA PO (07:20)
[2020-01-10] MEDS ORDERED: OXYC-517 PO (07:20)
--- NOTE | 2020-01-10 08:35 | REP ---
Clinical: Postoperative baseline. Open reduction and fixation. Technique: Portable AP, lateral, oblique views of the right ankle. Findings: The patient is status post satisfactory open reduction and fixation for distal fibular fractures. Impression: Status post satisfactory open reduction and fixation. Electronically Signed by Bean Vick MD 01/10/2020 08:26 A
--- NOTE | 2020-01-10 08:38 | REP ---
Clinical: Status post open reduction and fixation. Technique: Intraoperative fluoroscopic imaging using portable C-arm technique. Findings: Multiple images demonstrate the patient to be status post satisfactory open reduction and fixation for distal fibular shaft fracture. Small fracture fragments of the fibular tip are also identified. Total fluoroscopic time 171 seconds. Impression: Satisfactory open reduction and fixation for fibular diaphyseal fracture. Small fracture fragments of the fibular tip noted. Electronically Signed by Bean Vick MD 01/10/2020 08:31 A
[2020-01-10] MEDS ORDERED: ALBUTEROL 90 MCG/ACT 8GM HFA INHALER INH PRN (08:45)
[2020-01-10] MEDS ORDERED: FLUTICASONE HFA 110 MCG 12 GM INHALER (FLOVENT) INH SCH (09:00)
[2020-01-10] MEDS ORDERED: DIVALPROEX 500 MG TAB PO SCH (09:00)
[2020-01-10] MEDS ORDERED: MULTIVITAMINS/MINERALS THERAP 1 TAB PO SCH (09:00)
[2020-01-10 10:00] VITALS: BP 130/70
--- NOTE | 2020-01-10 11:04 | CR ---
DATE OF CONSULTATION: 01/09/2020 CHIEF COMPLAINT: Right ankle pain. HISTORY OF PRESENT ILLNESS: This is a 54-year-old woman who was carrying some suitcase down the stairs when she tripped and fell. She sustained a right ankle fracture dislocation and also had an injury to her left ankle. She was unable to walk after the injury. She was seen in the emergency room and found to have a right ankle fracture dislocation and a possible avulsion fracture of the left ankle. I was consulted for further care. She denies pain elsewhere besides her bilateral ankles. PAST MEDICAL HISTORY: 1. Migraines. 2. Asthma. 3. Sinus infections. 4. Neuroma. 5. Back pain. 6. Neck pain. 7. Myalgia. PAST SURGICAL HISTORY: 1. Hernia repair. 2. Sinus surgeries. 3. Removal of cyst from genital area. 4. Tonsillectomy. 5. Partial removal of uvula. 6. Back surgery. SOCIAL HISTORY: Patient is . She does not smoke. REVIEW OF SYSTEMS: Positive for musculoskeletal pain in the bilateral ankles but otherwise negative. PHYSICAL EXAMINATION: GENERAL: No acute distress. Right ankle splinted. CHEST: Regular unlabored breathing. CARDIOVASCULAR: Regular rate and rhythm. ABDOMEN: Soft, nontender. EXTREMITIES: There is moderate swelling and an small blister at the medial aspect of the ankle. There is a deformity. Foot is warm and well perfused. She is able to wiggle her toes and is gross sensation to light touch in the superficial, peroneal, the distribution. IMAGING: Radiographs of the right ankle reveal fracture dislocation which has been preliminary reduced but is still wide with the ankle mortise. Left ankle x-rays show possible avulsion fractures off the distal fibula or distal tibia. IMPRESSION: 1. Right ankle fracture dislocation. 2. Left ankle sprain with avulsion fracture. PLAN: Patient has an unstable fracture to the right ankle and surgery is recommended for definitive care. On the left side, we will continue to monitor and try to get the patient an ankle brace. She will be admitted to the hospital after surgery. This will be done today.
[2020-01-10 14:00] VITALS: BP 133/64
[2020-01-10] MEDS ORDERED: PENC1CR TOP (14:54)
--- NOTE | 2020-01-10 16:34 | IPNPDOC ---
Text Note Date of Service The patient was seen on 01/10/20. NOTE Subjective: No complaints this am except for pain at both ankles. Pain controlled with current regimen. Physical Exam: VITAL SIGNS: Please see below. GENERAL APPEARANCE: Patient is comfortable in no apparent distress. Her both ankles are elevated on a pillow. HEENT: . HEENT PERRLA. Extraocular muscles intact. RESPIRATORY: Clear to A&P. CARDIOVASCULAR: S1, S2, regular. ABDOMEN: Benign. EXTREMITIES: After cast on the right ankle. Distal pulses equal bilaterally. NEUROLOGICAL: . No focal motor sensory deficit. PSYCHIATRIC: Normal. Labs and radiology : reviewed. ASSESSMENT/PLAN: This is 54 years old, obese, white female with past medical history of asthma, migraine headaches, sinus infections, neuroma, back pain, neck pain, generalized myalgia, lumbar facet arthropathy, sustained a mechanical fall while carrying laundry downstairs this morning and injured her both ankles. On x-ray, right ankle is obvious deformity, unable to bear weight. Left ankle was noted to have swelling but no fracture. Admitted for right ankle fracture and left ankle sprain. Right ankle fracture and left ankle sprain secondary to mechanical fall s/p right ankle surgical fixation on 01/09/20 Fitted for left ankle brace. Asthma continue fluticasone inhalor, albuteraol prn, singulair. Morbid obesity BMI: 39.7 complicating care. Hypertension HCTZ Chronic back and neck pain/ myalgias/ lumber facet hypertrophy Follows up with pain management on narcotic meds History of migraine headaches: on depakote, rizatriptan prn exedrine migraine at home. RLS ropinirole. DVT prophylaxis: Xarelto VS,Fishbone, I+O VS, Fishbone, I+O Vital Signs Date Time Temp Pulse Resp B/P (MAP) Pulse Ox O2 Delivery O2 Flow Rate FiO2 01/10/20 14:00 98.4 101 16 133/64 (87) 95 Room Air 01/10/20 05:30 1.0 I&O- Last 24 Hours up to 6 AM 01/10/20 05:59 Intake Total 2305 ml Output Total 725 ml Balance 1580 ml MAYUR LAGUNA MD Jan 10, 2020 16:34
[2020-01-10] MEDS ORDERED: RIVAROXABAN 10 MG TAB (XARELTO) PO SCH (17:00)
[2020-01-10] MEDS ORDERED: hydroCHLOROthiazide 25 MG TAB PO SCH (21:00)
[2020-01-10] MEDS ORDERED: MONTELUKAST 10 MG TAB PO SCH (21:00)
[2020-01-10] MEDS ORDERED: rOPINIRole 0.25 MG TAB(REQUIP) PO SCH (21:00)
--- NOTE | 2020-01-11 11:34 | RO ---
DATE OF PROCEDURE: 01/09/2020 PREOPERATIVE DIAGNOSIS: Right bimalleolar ankle fracture dislocation with syndesmotic disruption. POSTOPERATIVE DIAGNOSIS: Right bimalleolar ankle fracture dislocation with syndesmotic disruption. PROCEDURE: Open reduction internal fixation right bimalleolar fracture with syndesmotic fixation. SURGEON: Samara Rene MD HAND GRINDER: None. ANESTHESIA: General endotracheal. ESTIMATED BLOOD LOSS: 25 mL. COMPLICATIONS: None. CONDITION: Stable, to recovery. INDICATIONS: Carmen Woodward is a 54-year-old female who had a mechanical fall this morning resulting in a right ankle fracture dislocation. She was preliminarily reduced in the emergency room and admitted to the hospital for operative fixation. Risks and benefits of surgery were discussed with the patient in detail and included, but are not limited to infection, damage to nerves and blood vessels, continued pain and stiffness, need for additional procedures. Informed consent was obtained. PROCEDURE: The patient was met in the preoperative holding area where her right lower extremity was marked on the corrective operative side. She was then prepped and draped in the normal sterile fashion. A well padded tourniquet had been placed on the right upper thigh and antibiotics were given within 50 minutes prior to incision. An official time out was held where the correct patient, operative side and operative procedure were verified. The leg was exsanguinated and tourniquet was inflated to 250 mmHg for two hours. An incision was made over the posterior aspect of the fibula. This was an extensile approach given the proximal nature of the fracture with associated syndesmotic disruption. The fracture was identified. It was significantly comminuted. The superficial peroneal nerve was also identified and protected throughout the case. The fracture was cleaned of hematoma and debrided. I was able to gain a reduction using a small portion of the fracture which was non comminuted. I then placed a 1/3 tubular 9 hole bridge plate. Following this, there continued to be significant instability of the ankle mortise. There was a positive external rotation stress test and cotton test. It was difficult to gain a satisfactory reduction of the ankle mortise with just manual compression due to the significant instability and thus a periarticular clamp was used to further reduce the syndesmosis. This was done with the ankle in neutral dorsiflexion and gentle compression through the clamp. Once I was able to gain reduction, I then used the 0.062 wire to hold it in place. Two 4.0 mm syndesmotic screws were placed distal to the plate. Following this, the ankle was stable to external rotation stress test and cotton maneuver. Final x-rays were performed which showed maintained and satisfactory reduction of the fibula fracture, ankle mortise and hardware placement. Again, there was significant comminution of the fracture site, but the intact portion of the fracture remained reduced throughout the case. Following this, copious irrigation was performed. The superficial peroneal nerve was intact at the end of the case. Soft tissues were closed using #3-0 Vicryl and skin was closed using #3-0 nylon. A sterile dressing was applied and the patient was placed into a well padded splint. She was extubated and transferred to the recovery room in stable condition. PLAN: The patient will be non weight bearing in the right lower extremity for 3 months. She will be on Xarelto for deep vein thrombosis prophylaxis. She will be on antibiotics for 24 hours in the hospital. I will see her in the office in 2 weeks for suture removal and cast placement.
== END 2020-01-10 18:00 | disposition home or self-care (01) ==
LOC: M ED 06:54 → EDBD 06:54 → M SDC 10:19 → M MS5PR 10:20 → ENRESERV 13:39 → M MS5PR 15:04 → M SDC 15:53 → M MS5PR 22:52
PROVIDERS: ADMIT Orthopaedic Surgery; ATTEND Orthopaedic Surgery
DX: S82.841A Displaced bimalleolar fracture of right lower leg, initial encounter for closed fracture (principal); S93.431A Sprain of tibiofibular ligament of right ankle, initial encounter; S93.402A Sprain of unspecified ligament of left ankle, initial encounter; W10.8XXA Fall (on) (from) other stairs and steps, initial encounter; Y92.098 Other place in other non-institutional residence as the place of occurrence of the external cause; J45.909 Unspecified asthma, uncomplicated; G43.909 Migraine, unspecified, not intractable, without status migrainosus; M54.2 Cervicalgia; M79.10 Myalgia, unspecified site; D36.10 Benign neoplasm of peripheral nerves and autonomic nervous system, unspecified; E66.9 Obesity, unspecified; Z68.39 Body mass index [BMI] 39.0-39.9, adult; Z88.1 Allergy status to other antibiotic agents; Z88.8 Allergy status to other drugs, medicaments and biological substances; Z79.899 Other long term (current) drug therapy; Z79.51 Long term (current) use of inhaled steroids
CPT/HCPCS: 27810; 27814; 27829; 73600; 73610; 73630; 76000; 80048; 85027; 85610; 85730; 86850; 86900; 86901; 87486; 87581; 87633; 87798; 93005; 93041; 94640; 94760; 96361; 96365; 96366; 96375; 96376; 97161; 97530; 99285; C1713; J0131; J0690; J1100; J1170; J2250; J2270; J2405; J2765; J3010

== ENCOUNTER → 2020-05-31 | Outpatient (CLI) | payer OTHER ==
[~2020-05-31] MED LIST changes: +ALBU8.5H INH; +ARNU1INH3 INH; +BUTA-198 PO; +DIVA500T94 PO; +EXCETAB33 PO; +HYDR25TAB PO; +IPRA0.00 INH; +MONT10TA4 PO; +OXYC-517 PO; +PENC1CR TOP; +RIZA10TA58 SL; +ROPI0.5T3 PO; +VITMTA PO; +XARE10TA PO
== END ==
LOC: M LABSMTC 14:29
PROVIDERS: ATTEND Orthopaedic Surgery
DX: Z01.812 Encounter for preprocedural laboratory examination (principal); Z20.828 Contact with and (suspected) exposure to other viral communicable diseases; S82.841D Displaced bimalleolar fracture of right lower leg, subsequent encounter for closed fracture with routine healing; X58.XXXD Exposure to other specified factors, subsequent encounter

== ENCOUNTER → 2020-06-04 | Outpatient (CLI) | payer OTHER ==
[2020-06-04 16:34] LABS: BLOOD UREA NITROGEN 13 MG/DL (7-18); CALCIUM LEVEL 9.9 MG/DL (8.5-10.1); CARBON DIOXIDE LEVEL 28 MEQ/L (21-32); CHLORIDE LEVEL 103 MEQ/L (98-107); CREATININE FOR GFR 0.86 MG/DL (0.55-1.30); GLOMERULAR FILTRATION RATE > 60.0 (>51); GLUCOSE, FASTING 188 MG/DL (70-100); POTASSIUM SERUM 3.8 MEQ/L (3.5-5.1); SODIUM LEVEL 139 MEQ/L (136-145)
== END ==
LOC: M PLALAB 13:31
PROVIDERS: ATTEND Orthopaedic Surgery
DX: S82.841D Displaced bimalleolar fracture of right lower leg, subsequent encounter for closed fracture with routine healing (principal)

== ENCOUNTER → 2020-10-15 | Outpatient (CLI) | payer OTHER ==
[~2020-10-15] MED LIST changes: +HYDR-3490 PO; -HYDR25TAB PO; +MONT10TA10 PO; -MONT10TA4 PO
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
== END ==
LOC: M PAIN 08:30
PROVIDERS: ATTEND Nurse Practitioner Family
DX: M79.18 Myalgia, other site (principal); M54.2 Cervicalgia; J45.909 Unspecified asthma, uncomplicated; G43.909 Migraine, unspecified, not intractable, without status migrainosus; Z88.5 Allergy status to narcotic agent; Z88.8 Allergy status to other drugs, medicaments and biological substances; Z91.011 Allergy to milk products; Z79.899 Other long term (current) drug therapy

== ENCOUNTER → 2020-12-06 | Outpatient (CLI) | payer OTHER ==
--- NOTE | 2020-12-11 04:49 | ECWPNPC ---
PATIENT NAME: CARMEN RODRIGUEZ : 1965 GENDER: FEMALE VISIT DATE: 12/06/2020 DISCHARGE DATE: 12/06/20 1202 VISIT LOCKED DATE TIME: PHYSICIAN: ZAINAB ADAME RESOURCE: ZAINAB ADAME REASON FOR APPOINTMENT 1. NECK/BACK/POST PT HISTORY OF PRESENT ILLNESS GENERAL: HERE FOR FOLLOW-UP OF PERSISTENT NECK AND UPPER BACK PAIN. MRI THAT WAS DONE AT [facility] IS REVIEWED TODAY. THIS IS SHOWING MULTILEVEL DEGENERATIVE CHANGES. PATIENT HAS INCREASED PAIN WITH RANGE OF JOINT MOTION OF HER NECK OR USE OF HER ARMS. DISCUSSED TRIGGER POINT INJECTIONS. POTENTIAL RISKS AND BENEFITS WERE REVIEWED. -. FALL RISK SCREENING: SCREENING ONE FALLS REPORTED IN THE LAST YEAR BROKE RIGHT ANKLE, NO FALL THIS YEAR. PAIN SCREENING: PATIENT HAS A COMPLAINT OF ACUTE OR CHRONIC PAIN :YES LOCATION OF PAIN:NECK, UPPER BACK, MID BACK, LOW BACK INTENSITY OF PAIN (SCALE OF 1 TO 10):6 WHAT DOES YOUR PAIN FEEL LIKE:ACHING, SHARP, TENDER, SORE DURATION:CONTINOUS, CONSTANT, ALL DAY, MAINLY DURING THE NIGHT PAIN IS INCREASED BY:ACTIVITIES, PROLONGED STANDING PAIN IS DECREASED BY:OTHERS ICE AND HEAT, ALEVE NURSING NOTE: -. PAIN CENTER INTAKE QUESTIONS: DO YOU HAVE A HISTORY OF MRSA? :NO DO YOU TAKE A BLOOD THINNERS? :NO DO YOU HAVE ANY BLEEDING DISORDERS? :NO ANY NEW NUMBNESS OR WEAKNESS IN YOUR LEGS OR ARMS? :NO ANY PACEMAKER,DEFIBRILLATOR, OR DORSAL COLUMN STIMULATOR? :NO DO YOU HAVE ANY RASHES OR OPEN SORES? :NO ARE YOU ALLERGIC TO IV DYE? :NO ARE YOU DIABETIC? :NO ANY NEW PROBLEMS WITH YOUR MEDICATIONS? :NO HAVE YOU RECEIVED A VACCINE IN THE PAST 30 DAYS? :NO DO YOU PLAN TO RECEIVE A VACCINE IN THE NEXT 21 DAYS? :NO DO YOU NEED ANY PRESCRIPTION? :NO DO YOU TAKE ANY IMMUNOSUPPRESSIVE MEDICATIONS? :NO CURRENT MEDICATIONS TAKING HYDROCHLOROTHIAZIDE 25 MG TABLET 1 TABLET ORALLY EVERY OTHER DAY TAKING IMITREX 6 MG/0.5ML SOLUTION SUBCUTANEOUS DIRECTED TAKING [id number] 50-325-40 MG CAPSULE 1 CAPSULE NEEDED ORALLY EVERY 4 HRS TAKING MAXALT 10 MG TABLET 1 TABLET NEEDED ONE TIME ORALLY ONCE A DAY TAKING VENTOLIN HFA 108 (90 BASE) MCG/ACT AEROSOL SOLUTION 2 PUFFS NEEDED INHALATION EVERY 4 HRS TAKING DUONEB PRN TAKING TYLENOL SINUS SEVERE 5-325-200 MG TABLET 2 TABLETS NEEDED ORALLY EVERY 4 HRS TAKING SINGULAIR 10 MG TABLET 1 TABLET IN THE EVENING ORALLY ONCE A DAY TAKING BENZONATATE 100 MG CAPSULE 1 CAPSULE NEEDED ORALLY THREE TIMES A DAY TAKING DULOXETINE HCL 60 MG CAPSULE DELAYED RELEASE PARTICLES 1 CAPSULE ORALLY ONCE A DAY NOT-TAKING FLUTICASONE PROPIONATE 50 MCG/ACT SUSPENSION 1 SPRAY IN EACH NOSTRIL NASALLY ONCE A DAY NOT-TAKING GABAPENTIN 300 MG CAPSULE 1 CAPSULE ORALLY TID NOT-TAKING MELOXICAM 15 MG TABLET 1 TABLET ORALLY ONCE A DAY NOT-TAKING ATORVASTATIN CALCIUM 10 MG TABLET 1 TABLET ORALLY ONCE A DAY NOT-TAKING DIVALPROEX SODIUM 500 MG TABLET DELAYED RELEASE ORALLY BID NOT-TAKING ROPINIROLE HCL 0.5 MG TABLET 1 TABLET 1 TO 3 HOURS BEFORE BEDTIME ORALLY ONCE A DAY NOT-TAKING TIZANIDINE HCL 4 MG TABLET 1 TABLET NEEDED ORALLY BEFORE BEDTIME NOT-TAKING DEPAKOTE 250 MG TABLET DELAYED RELEASE ORALLY TWICE A DAY NOT-TAKING NASONEX 50 MCG/ACT SUSPENSION 2 SPRAYS IN EACH NOSTRIL NASALLY ONCE A DAY PRN, NOTES: NONE RECENT MEDICATION LIST REVIEWED AND RECONCILED WITH THE PATIENT PAST MEDICAL HISTORY ASTHMA SINUS/PULMONARY INFECTIONS SCAR NEUROMA BACK PAIN RADIATING DOWN BOTH LEGS NERVE LEFT LOWER LEG THORACIC PAIN MYALGIA LUMBAR FACET ARTHROPATHY MIGRAINES LEFT ANKEL PACE OF BONE BROKEN ALLERGIES MILK: DYSPNEA - ALLERGY ENVIRONMENTAL: DYSPNEA - ALLERGY TOPAMAX: JOINT ACHES - SIDE EFFECTS LEVAQUIN: ANAPHYLAXIS - ALLERGY TRAMADOL HCL: NAUSEA/VOMITING - SIDE EFFECTS [id number] (BOWEL PREP): NAUSEA/VOMITING - SIDE EFFECTS SOCIAL HISTORY GENERAL: TOBACCO USE ARE YOU A:NONSMOKER LATEX QUESTIONNAIRE LATEX ALLERGY : HAVE YOU EVER DEVELOPED ANY TYPE OF REACTION AFTER HANDLING LATEX PRODUCTS SUCH RUBBER GLOVES, CONDOMS, DIAPHRAGMS, BALLOONS, SOCKS, OR UNDERWEAR?NO LATEX ALLERGY : HAVE YOU EVER DEVELOPED ANY TYPE OF REACTION DURING OR AFTER DENTAL APPOINTMENT, VAGINAL/RECTAL EXAMINATION, SURGICAL PROCEDURE, OR ANY OTHER EXPOSURE?NO LATEX RISK : HAVE YOU EVER HAD ANY DIFFICULTY BREATHING OR HIVES AFTER EATING OR HANDLING ANY FRUITS, OR VEGETABLES; SUCH KIWI, BANANAS, STONE FRUITS, OR CHESTNUTSNO LATEX RISK : DO YOU HAVE A PREVIOUS PERSONAL HISTORY OF MORE THAN NINE SURGERIES, SPINA BIFIDA, OR REPEATED CATHERIZATIONS? NO LATEX RISK : ARE YOU FREQUENTLY EXPOSED TO LATEX PRODUCTS IN YOUR OCCUPATION?NO DATE ASKED : 12/06/2020 ALCOHOL USE: YES, BEER LAST MONTH. ALCOHOL SCREENING DID YOU HAVE A DRINK CONTAINING ALCOHOL IN THE PAST YEAR?NO POINTS0 INTERPRETATIONNEGATIVE RECREATIONAL DRUG USE DRUG USE?NO CAFFEINE CAFFEINE USE?YES HOW OFTEN AND HOW MUCH? 1 COKE/DAY ALEVISM [id number] NONE LANGUAGE LANGUAGES SPOKEN:SETSWANA EDUCATION LEVEL OF EDUCATION:NOT FINISHED COLLEGE LEARNING BARRIERS / SPECIAL NEEDS CHANGE FROM LAST VISIT?NO BARRIERS TO LEARNING?NO HEARING IMPAIRED?NO VISION IMPAIRED?YES :CORRECTIVE LENSES COGNITIVELY IMPAIRED?NO READINESS TO LEARN?YES LEARNING PREFERENCES?NO LEARNING CAPABILITIES PRESENT?YES EMOTIONAL BARRIERS?NO SPECIAL DEVICES?NO VISUAL EDUCATOR NEEDED?NO DOMESTIC VIOLENCE DO YOU FEEL SAFE IN YOUR ENVIRONMENT?YES DIET: REGULAR. EXERCISE: TREADMILL 30 MINS-1 HOURS 3-4X/WK. OTHERS AT HOME: SPOUSE, CHILD, OTHER RELATIVE. - PFS REFERRAL NEEDED?NO CLERGY REFERRAL NEEDED?NO PUBLIC HEALTH REFERRAL NEEDED?NO WAS THE PROVIDER NOTIFIED OF ANY PERTINENT INFO? N/A HAS THE PATIENT BEEN EDUCATED REGARDING HIS/HER PLAN OF CARE?YES HAS THE PATIENT BEEN EDUCATED REGARDING PAIN, THE RISK FOR PAIN, THE IMPORTANCE OF EFFECTIVE PAIN MANAGEMENT, AND THE PAIN ASSESSMENT PROCESS?YES ADVANCE DIRECTIVE ADVANCE DIRECTIVE DISCUSSED WITH PATIENT:YES 03/07/19 PT DOESN'T HAVE ANY ADVANCED DIRECTIVES AND DECLINED INFORMATION ON HCP AT THIS TIME. AD 10/26/17 0900 REVIEWED. PT DECLINED INFORMATION ON ADVANCED DIRECTIVES AD02/10/18 1400 REVIEWED WITH PT. AD03/23/18 1420 REVIEWED WITH PT. AD04/22/18 1053 REVIEWED WITH PT LASREVIEWED WITH PT 06/03/18 1100 BV. REVIEW OF SYSTEMS CONSTITUTIONAL: ANY RECENT FEVER NO . CHILLS NO . WEIGHT CHANGE OF UNKNOWN REASONS NO . GASTROENTEROLOGY: NEW UNEXPLAINABLE CHANGES IN BOWEL CONTROL NO . CONSTIPATION NO . GENITOURINARY: ANY NEW CHANGE IN BLADDER CONTROL? NO . NEUROLOGY: NEW ONSET DIZZINESS OR NEUROLOGICAL CHANGES NOT MENTIONED NO . NEW NUMBNESS OR PAIN PATTERNS NOT MENTIONED AND PERTINENT TO TODAY'S VISIT NO . CARDIOLOGY: NEW CHEST PRESSURE NO . PATIENT DENIES NO . RESPIRATORY: UNEXPLAINABLE COUGH NO . NEW SHORTNESS OF BREATH NO . VITAL SIGNS WT 194.0 LBS, HT 62 IN, BMI 35.48 INDEX, BP 166/79 MM HG, REPEAT BP 134/72 MM HG, HR 104 /MIN, RR 18 /MIN, TEMP 97.0 F, OXYGEN SAT % 97%, SAFE IN ENV? (Y/N) YES, NA INITIALS AW 1121T.KARTHIK DANIELLE. EXAMINATION GENERAL EXAMINATION: GENERALNO ACUTE DISTRESS, WELL NOURISHED AND HYDRATED. PSYCHAPPROPRIATE MOOD AND AFFECT . FACE:UNREMARKABLE. NECK:NO LYMPHADENOPATHY, SUPPLE. LUNGS:CLEAR TO AUSCULTATION BILATERALLY, NO WHEEZES, RHONCHI, RALES. HEART:NO MURMURS, REGULAR RATE AND RHYTHM. MUSCULOSKELETAL: PALPATION: POSITIVE FOR PAIN OVER CERVICAL SPINE. POSITIVE FOR PAIN OVER CERVICAL PARSPINALS TRIGGER POINTS: ELICITED WITH PALPATION OVER CERVICAL SPINOUS PROCESSES AND ACROSS THE TRAPEZIUS MUSCLES BILATERALLY. RESTRICTION OF ROM IS NOTED.. ASSESSMENTS MYALGIA, OTHER SITE - M79.18 (PRIMARY) TREATMENT MYALGIA, OTHER SITE MEDICATION: OXYCODONE HCL TAB 5MG ORALLY (ORDERED FOR 12/13/2020) MEDICATION: VALIUM TAB 5MG ORALLY (DIAZEPAM) (ORDERED FOR 12/13/2020) NOTES: TRIGGER POINT INJECTIONS BILATERAL NECK, BILATERAL SHOULDERS, BILATERAL THORACIC PRINTED AND REVIEWED PRE PROCEDURE INFORMATION, PATIENT VERBALIZED UNDERSTANDING KYREE DANIELLE. PROCEDURE CODES FA211 ESTABILISHED PATIENT [facility] CHARGE DISPOSITION & COMMUNICATION FOLLOW UP POST (REASON: TRIGGER POINT INJECTIONS BILATERAL NECK, BILATERAL SHOULDERS, BILATERAL THORACIC) ELECTRONICALLY SIGNED BY JULIUS JASSO ON 12/10/2020 AT 03:43 PM EDT DISCLAIMER : THIS IS A VISIT SUMMARY EXTRACTED FROM THE [employer] CHART. IT IS NOT A COPY OF THE [employer] PROGRESS NOTE. LUIS F
== END ==
LOC: M PAIN 11:15
PROVIDERS: ATTEND Nurse Practitioner Family
DX: M79.18 Myalgia, other site (principal); J45.909 Unspecified asthma, uncomplicated; G43.909 Migraine, unspecified, not intractable, without status migrainosus; Z88.5 Allergy status to narcotic agent; Z88.8 Allergy status to other drugs, medicaments and biological substances; Z91.011 Allergy to milk products; Z79.899 Other long term (current) drug therapy

== ENCOUNTER → 2021-01-17 | Outpatient (CLI) | payer OTHER | LOC: M LABSMTC 13:30 | PROVIDERS: ATTEND Anesthesiology | DX: Z20.822 Contact with and (suspected) exposure to COVID-19 (principal) ==

== ENCOUNTER → 2021-01-21 | Outpatient (REF) | payer OTHER ==
[2021-01-21 17:18] LABS: APPEARANCE, URINE HAZY (CLEAR); BACTERIA, URINE AUTO NEGATIVE (NEGATIVE); BILIRUBIN, URINE AUTO NEGATIVE (NEGATIVE); BLOOD, URINE BLOOD NEGATIVE (NEGATIVE); COLOR, URINE YELLOW (YELLOW); GLUCOSE, URINE (UA) AUTO NEGATIVE (NEGATIVE); KETONE, URINE AUTO NEGATIVE (NEGATIVE); LEUKOCYTE ESTERASE, URINE AUTO NEGATIVE (NEGATIVE); MUCUS, URINE SMALL (NEGATIVE); NITRITE, URINE AUTO NEGATIVE (NEGATIVE); PROTEIN, URINE AUTO NEGATIVE (NEGATIVE); RBC, URINE AUTO 1 /HPF (0-3); SQUAMOUS EPITHELIAL CELL UR AU 0 /HPF (0-6); UROBILINOGEN, URINE AUTO 0.2 mg/dL (0.0-2.0); WBC, URINE AUTO 0 /HPF (0-3)
== END ==
LOC: M SMT 16:47
PROVIDERS: ATTEND Nurse Practitioner Family
DX: N39.41 Urge incontinence (principal)

== ENCOUNTER → 2021-01-22 | Outpatient (CLI) | payer OTHER ==
[~2021-01-22] MED LIST changes: +BUPIVACAINE HCL 0.25% 10ML VIAL As Ordered ONE; +BUPIVACAINE HCL 0.25% 30ML VIAL As Ordered ONE; +TRIAMCINOLONE ACETONIDE SUSP 40 MG/ML VIAL (J3301) As Ordered ONE; +diazePAM 5MG TABLET As Ordered ONE; +oxyCODONE 5MG TAB As Ordered ONE
--- NOTE | 2021-01-23 03:03 | ECWPNPC ---
PATIENT NAME: CARMEN RODRIGUEZ : 1965 GENDER: FEMALE VISIT DATE: 01/22/2021 DISCHARGE DATE: 01/22/21951 VISIT LOCKED DATE TIME: PHYSICIAN: CHRISTINE TRONCOSO MD RESOURCE: CHRISTINE TRONCOSO MD REASON FOR APPOINTMENT 1. TRIGGER POINT INJECTIONS TO BILATERAL NECK, BILATERAL SHOULDERS, AND BILATERAL THORACIC HISTORY OF PRESENT ILLNESS GENERAL: -. FALL RISK SCREENING: SCREENING : TWO OR MORE FALLS REPORTED IN THE LAST YEAR DUE TO LOSING BALANCE - NO MAJOR INJURIES. PAIN SCREENING: PATIENT HAS A COMPLAINT OF ACUTE OR CHRONIC PAIN :YES LOCATION OF PAIN:NECK, LEFT SHOULDER, RIGHT SHOULDER, UPPER BACK, MID BACK INTENSITY OF PAIN (SCALE OF 1 TO 10):7 WHAT DOES YOUR PAIN FEEL LIKE:SHARP, TENDER DURATION:CONTINOUS, CONSTANT, ALL DAY PAIN IS INCREASED BY:ACTIVITIES, OTHERS LIFTING PAIN IS DECREASED BY:OTHERS ICE NURSING NOTE: -. PAIN CENTER INTAKE QUESTIONS: DO YOU HAVE A HISTORY OF MRSA? :NO DO YOU TAKE A BLOOD THINNERS? :NO DO YOU HAVE ANY BLEEDING DISORDERS? :NO ANY NEW NUMBNESS OR WEAKNESS IN YOUR LEGS OR ARMS? :NO ANY PACEMAKER,DEFIBRILLATOR, OR DORSAL COLUMN STIMULATOR? :NO DO YOU HAVE ANY RASHES OR OPEN SORES? :YES SKIN DISCOLORATION FROM RECENT POISON RYLAN RASH; NOTHING OPEN OR DRAINING CURRENTLY ARE YOU ALLERGIC TO IV DYE? :NO ARE YOU DIABETIC? :NO ANY NEW PROBLEMS WITH YOUR MEDICATIONS? :NO HAVE YOU RECEIVED A VACCINE IN THE PAST 30 DAYS? :NO DO YOU PLAN TO RECEIVE A VACCINE IN THE NEXT 21 DAYS? :NO DO YOU TAKE ANY IMMUNOSUPPRESSIVE MEDICATIONS? :NO ANY HISTORY OF SEIZURES? :NO ANY HISTORY OF CARDIAC ISSUES OR EVENTS? :NO DO YOU HAVE ANY KIDNEY OR LIVER DISEASE? :NO DO YOU HAVE SLEEP APNEA? :NO ANY RECENT HEAD INJURY? :NO DO YOU HAVE ANY NEW INFECTIONS? :NO IS THERE A CHANCE YOU COULD BE ? :NO ARE YOU BREAST FEEDING? :NO WHEN DID YOU LAST EAT? : -[id number] WHEN DID YOU LAST DRINK? : -THIS MORNING AT 0600 WHAT DID YOU LAST DRINK? : -WATER NAME OF PERSON DRIVING YOU HOME? : MARIELA DO YOU HAVE ANY OTHER QUESTIONS OR CONCERNS? : - CURRENT MEDICATIONS TAKING HYDROCHLOROTHIAZIDE 25 MG TABLET 1 TABLET ORALLY DAILY TAKING IMITREX 6 MG/0.5ML SOLUTION SUBCUTANEOUS DIRECTED, NOTES: BEEN A WHILE TAKING [id number] 50-325-40 MG CAPSULE 1 CAPSULE NEEDED ORALLY EVERY 4 HRS TAKING MAXALT 10 MG TABLET 1 TABLET NEEDED ONE TIME ORALLY ONCE A DAY TAKING VENTOLIN HFA 108 (90 BASE) MCG/ACT AEROSOL SOLUTION 2 PUFFS NEEDED INHALATION EVERY 4 HRS TAKING DUONEB PRN TAKING TYLENOL SINUS SEVERE 5-325-200 MG TABLET 2 TABLETS NEEDED ORALLY EVERY 4 HRS TAKING SINGULAIR 10 MG TABLET 1 TABLET IN THE EVENING ORALLY ONCE A DAY TAKING BENZONATATE 100 MG CAPSULE 1 CAPSULE NEEDED ORALLY THREE TIMES A DAY TAKING DULOXETINE HCL 60 MG CAPSULE DELAYED RELEASE PARTICLES 1 CAPSULE ORALLY ONCE A DAY TAKING SYMBICORT 160-4.5 MCG/ACT AEROSOL 2 PUFFS INHALATION TWICE A DAY TAKING ROPINIROLE HCL 0.5 MG TABLET 1 TABLET 1 TO 3 HOURS BEFORE BEDTIME ORALLY ONCE A DAY TAKING FLUTICASONE PROPIONATE 50 MCG/ACT SUSPENSION 1 SPRAY IN EACH NOSTRIL NASALLY ONCE A DAY TAKING GABAPENTIN 300 MG CAPSULE 1 CAPSULE ORALLY TID TAKING MELOXICAM 15 MG TABLET 1 TABLET ORALLY ONCE A DAY TAKING ATORVASTATIN CALCIUM 10 MG TABLET 1 TABLET ORALLY ONCE A DAY TAKING DIVALPROEX SODIUM 500 MG TABLET DELAYED RELEASE ORALLY BID TAKING TIZANIDINE HCL 4 MG TABLET 1 TABLET NEEDED ORALLY BEFORE BEDTIME TAKING DEPAKOTE 250 MG TABLET DELAYED RELEASE ORALLY TWICE A DAY TAKING NASONEX 50 MCG/ACT SUSPENSION 2 SPRAYS IN EACH NOSTRIL NASALLY ONCE A DAY PRN, NOTES: NONE RECENT TAKING AIMOVIG 70 MG/ML SOLUTION AUTO-INJECTOR DIRECTED SUBCUTANEOUS NOT-TAKING FLUOXETINE HCL 40 MG CAPSULE 1 CAPSULE ORALLY ONCE A DAY NOT-TAKING NAPROXEN 375 MG TABLET 1 TABLET WITH FOOD OR MILK NEEDED ORALLY EVERY 12 HRS NOT-TAKING ONDANSETRON HCL 4 MG TABLET 1 TABLET ORALLY ONCE A DAY NOT-TAKING TAMSULOSIN HCL 0.4 MG CAPSULE 1 CAPSULE ORALLY ONCE A DAY NOT-TAKING TOPIRAMATE 25 MG TABLET 1 TABLET ORALLY ONCE A DAY MEDICATION LIST REVIEWED AND RECONCILED WITH THE PATIENT PAST MEDICAL HISTORY ASTHMA SINUS/PULMONARY INFECTIONS SCAR NEUROMA BACK PAIN RADIATING DOWN BOTH LEGS NERVE LEFT LOWER LEG THORACIC PAIN MYALGIA LUMBAR FACET ARTHROPATHY MIGRAINES LEFT ANKEL PACE OF BONE BROKEN ALLERGIES MILK: DYSPNEA - ALLERGY ENVIRONMENTAL: DYSPNEA - ALLERGY TOPAMAX: JOINT ACHES - SIDE EFFECTS LEVAQUIN: ANAPHYLAXIS - ALLERGY TRAMADOL HCL: NAUSEA/VOMITING - SIDE EFFECTS [id number] (BOWEL PREP): NAUSEA/VOMITING - SIDE EFFECTS SOCIAL HISTORY GENERAL: TOBACCO USE ARE YOU A:NONSMOKER LATEX QUESTIONNAIRE LATEX ALLERGY : HAVE YOU EVER DEVELOPED ANY TYPE OF REACTION AFTER HANDLING LATEX PRODUCTS SUCH RUBBER GLOVES, CONDOMS, DIAPHRAGMS, BALLOONS, SOCKS, OR UNDERWEAR?NO LATEX ALLERGY : HAVE YOU EVER DEVELOPED ANY TYPE OF REACTION DURING OR AFTER DENTAL APPOINTMENT, VAGINAL/RECTAL EXAMINATION, SURGICAL PROCEDURE, OR ANY OTHER EXPOSURE?NO LATEX RISK : HAVE YOU EVER HAD ANY DIFFICULTY BREATHING OR HIVES AFTER EATING OR HANDLING ANY FRUITS, OR VEGETABLES; SUCH KIWI, BANANAS, STONE FRUITS, OR CHESTNUTSNO LATEX RISK : DO YOU HAVE A PREVIOUS PERSONAL HISTORY OF MORE THAN NINE SURGERIES, SPINA BIFIDA, OR REPEATED CATHERIZATIONS? NO LATEX RISK : ARE YOU FREQUENTLY EXPOSED TO LATEX PRODUCTS IN YOUR OCCUPATION?NO DATE ASKED : 01/17/2021 ALCOHOL USE: YES, BEER LAST MONTH. ALCOHOL SCREENING DID YOU HAVE A DRINK CONTAINING ALCOHOL IN THE PAST YEAR?NO POINTS0 INTERPRETATIONNEGATIVE RECREATIONAL DRUG USE DRUG USE?NO CAFFEINE CAFFEINE USE?YES HOW OFTEN AND HOW MUCH? 1 COKE/DAY LATTER-DAY [id number] NONE LANGUAGE LANGUAGES SPOKEN:BARBADIAN EDUCATION LEVEL OF EDUCATION:NOT FINISHED COLLEGE LEARNING BARRIERS / SPECIAL NEEDS CHANGE FROM LAST VISIT?NO BARRIERS TO LEARNING?NO HEARING IMPAIRED?NO VISION IMPAIRED?YES :CORRECTIVE LENSES COGNITIVELY IMPAIRED?NO READINESS TO LEARN?YES LEARNING PREFERENCES?NO LEARNING CAPABILITIES PRESENT?YES EMOTIONAL BARRIERS?NO SPECIAL DEVICES?NO EXTRACTOR MACHINE OPERATOR NEEDED?NO DOMESTIC VIOLENCE DO YOU FEEL SAFE IN YOUR ENVIRONMENT?YES DIET: REGULAR. EXERCISE: TREADMILL 30 MINS-1 HOURS 3-4X/WK. OTHERS AT HOME: SPOUSE, CHILD, OTHER RELATIVE. - PFS REFERRAL NEEDED?NO CLERGY REFERRAL NEEDED?NO PUBLIC HEALTH REFERRAL NEEDED?NO WAS THE PROVIDER NOTIFIED OF ANY PERTINENT INFO? N/A HAS THE PATIENT BEEN EDUCATED REGARDING HIS/HER PLAN OF CARE?YES HAS THE PATIENT BEEN EDUCATED REGARDING PAIN, THE RISK FOR PAIN, THE IMPORTANCE OF EFFECTIVE PAIN MANAGEMENT, AND THE PAIN ASSESSMENT PROCESS?YES ADVANCE DIRECTIVE ADVANCE DIRECTIVE DISCUSSED WITH PATIENT:YES 03/07/19 PT DOESN'T HAVE ANY ADVANCED DIRECTIVES AND DECLINED INFORMATION ON HCP AT THIS TIME. AD VITAL SIGNS WT 198.0 LBS, HT 62 IN, BMI 36.21 INDEX, BP 131/80 MM HG, HR 99 /MIN, RR 18 /MIN, TEMP 97.8 F, OXYGEN SAT % 98%, SAFE IN ENV? (Y/N) YES, NA INITIALS AW 0841, REVIEWED BY: GABRIEL HIDALGO. EXAMINATION GENERAL: THE PATIENT IS ALERT, ORIENTED TIMES THREE AND COOPERATIVE. LUNGS ARE CLEAR TO AUSCULTATION. HEART SHOWS REGULAR RHYTHM, NO MURMURS AND NO GALLOPS. ASSESSMENTS MYALGIA, OTHER SITE - M79.18 (PRIMARY) TREATMENT MYALGIA, OTHER SITE COMPLETION OF PROCEDURAL VISIT WHEN MEETS CRITERIA MEDICATION: VALIUM TAB 5MG ORALLY (DIAZEPAM)LENNY ABADLE 01/22/2021 8:56:11 AM > VERIFIED CORTEZSAULSCAR 01/22/2021 8:59:54 AM > GIVEN MEDICATION: OXYCODONE HCL TAB 5MG ORALLY JENNIFFER,JUDSON 01/22/2021 8:56:27 AM > VERIFIED CORTEZSCAR 01/22/2021 9:00:19 AM > GIVEN OTHERS NOTES: 01/17/21 1500 PAT COMPLETED. Radha BARCENAS RN. PROCEDURES PAIN NURSING RECORD PROCEDURE IN ROOM 0900, PHYSICIAN IN ROOM 0933, START 0936, FINISH 0942, PHYSICIAN OUT OF ROOM 0943, OUT OF ROOM 0949, ECG N/A, PATIENT SHIELDED N/A, SAFETY STRAP N/A, PREP ALCOHOL DR. TRONCOSO, DRESSING TEGADERM Douglas TORO RN LOC: 1. ALERT, ORIENTED RESP: 1. REGULAR, NO DYSPNEA COLOR: 1. PINK SKIN: 1. WARM, DRY POSITION: 5. SITTING NOTES Douglas TORO RN COMPLETION OF PROCEDURE APPOINTMENT: POST PAIN 0, DRESSING SITE DRY AND INTACT, IV N/A, GAIT STEADY, TEACHING COMPLETED, PATIENT ACKNOWLEDGES UNDERSTANDING YES, PROCEDURE APPOINTMENT COMPLETED AT 0952 PN TRIGGER POINT INJECTION WITH STEROIDS PRE PROCEDURE DIAGNOSIS 1. MYALGIA 2. PAIN AT BILATERAL NECK AREA, BILATERAL SHOULDER AREA AND BILATERAL THORACIC AREA POST PROCEDURE DIAGNOSIS 1. MYALGIA 2. PAIN AT BILATERAL NECK AREA, BILATERAL SHOULDER AREA AND BILATERAL THORACIC AREA PROCEDURE TRIGGER POINT INJECTION AT BILATERAL NECK AREA, BILATERAL SHOULDER AREA AND BILATERAL THORACIC AREA SURGEON DR. CHRISTINE TRONCOSO CYTOLOGY TEACHER NONE ANESTHESIA LOCAL PRE PROCEDURE NOTE THE PATIENT HAS A HISTORY OF CHRONIC PAIN AT THE RIGHT AND LEFT NECK AREA, RIGHT AND LEFT SHOULDER AREA AND RIGHT AND LEFT THORACIC AREA. I EVALUATED THE PATIENT AND REVIEWED THE CHART. THERE IS EVIDENCE OF BANDS OF TISSUE WITH RESTRICTION OF MOVEMENT AND PRESENCE OF TRIGGER POINT AT THE RIGHT AND LEFT NECK AREA, RIGHT AND LEFT SHOULDER AREA AND RIGHT AND LEFT THORACIC AREA. I WENT OVER THE RISKS, ALTERNATIVES, AND BENEFITS ASSOCIATED WITH THIS PROCEDURE. THE PATIENT WOULD LIKE TO PROCEED AND GIVE CONSENT TO PERFORMED THE PROCEDURE. THE PATIENT DENIES UNEXPLAINABLE WEIGHT LOSS, FEVER, CHILLS, OR NEW CHANGES IN URINARY OR BOWEL CONTROL. THE PATIENT IS COVID-19 NEGATIVE DESCRIPTION OF PROCEDURE THE PATIENT WAS BROUGHT TO THE PROCEDURE ROOM AND PLACED IN THE SITTING POSITION. THE AREA WAS CLEANED WITH ALCOHOL. THE PROCEDURE WAS DONE USING ASEPTIC STERILE TECHNIQUE. A TIMEOUT WAS PERFORMED WHERE THE CONSENTED SITE WAS VERIFIED WITH EVERYONE IN THE ROOM. USING A 25-GAUGE NEEDLE, TRIGGER POINTS WERE INJECTED AT THE RIGHT AND LEFT NECK AREA, RIGHT AND LEFT SHOULDER AREA AND RIGHT AND LEFT THORACIC AREA WITH A TOTAL OF 40 ML OF BUPIVACAINE 0.25% AND KENALOG 40 MG. THE MEDICATIONS WERE VERIFIED WITH THE NURSE. THERE WAS NO EVIDENCE OF BLOOD OR PARESTHESIA DURING THE PROCEDURE. THE PATIENT WAS SENT TO THE RECOVERY ROOM. THE PATIENT WAS MOVING THE EXTREMITIES AND DOING WELL. THERE WERE NO COMPLICATIONS DURING THE PROCEDURE. ESTIMATED BLOOD LOSS WAS LESS THAN 5 ML POST PROCEDURE NOTE IN THE PAST, THE PATIENT HAS HAD OCCIPITAL BLOCKS. DEPENDING ON THE RESULTS, ONE ALTERNATIVES IS TRIGGER POINT INJECTIONS HIGHER IN THE NECK. THE PROCEDURE DONE WAS DISCUSSED WITH THE PATIENT. THE PATIENT WILL BE SEEN IN A FOLLOW UP IN THE NEXT FEW WEEKS. I AM LOOKING FOR LONG LASTING PAIN RELIEF FOR THE PATIENT WITH THIS INTERVENTION. INSTRUCTIONS WERE GIVEN, QUESTIONS WERE ANSWERED, AND THE PATIENT EXPRESSED UNDERSTANDING AND AGREES WITH THE PLAN. I, YI PATEL, DOCUMENTED THE ABOVE INFORMATION ACTING A SCRIBE FOR DR. TRONCOSO. I HAVE REVIEWED THE ABOVE DOCUMENT, WRITTEN BY YI PATEL, EVP MANAGING DIRECTOR, AND I VERIFY THAT IT IS ACCURATE PROCEDURE CODES 36517 INJ TRIGGER POINT 07/28 [facility] DISPOSITION & COMMUNICATION FOLLOW UP FOLLOW UP WITH 2 WEEKS (REASON: POST TRIGGER POINT INJECTION BILATERAL NECK, BILATERAL SHOULDER, BILATERAL THORACIC) ELECTRONICALLY SIGNED BY CHRISTINE TRONCOSO MD, MD ON 01/22/2021 AT 12:36 PM EDT DISCLAIMER : THIS IS A VISIT SUMMARY EXTRACTED FROM THE [employer] CHART. IT IS NOT A COPY OF THE [employer] PROGRESS NOTE. MTDD
== END ==
LOC: M PAIN 08:30
PROVIDERS: ATTEND Anesthesiology
DX: M79.18 Myalgia, other site (principal); J45.909 Unspecified asthma, uncomplicated; G43.909 Migraine, unspecified, not intractable, without status migrainosus; Z88.5 Allergy status to narcotic agent; Z88.8 Allergy status to other drugs, medicaments and biological substances; Z91.011 Allergy to milk products; Z79.899 Other long term (current) drug therapy
CPT/HCPCS: 20552; J3301

== ENCOUNTER → 2021-02-05 | Outpatient (CLI) | payer OTHER ==
[~2021-02-05] MED LIST changes: -BUPIVACAINE HCL 0.25% 10ML VIAL As Ordered ONE; +ISOVUE-M 300 61% 15ML VIAL As Ordered ONE; +LIDOCAINE 1% SDV 30ML VIAL As Ordered ONE
--- NOTE | 2021-02-07 02:43 | ECWPNPC ---
PATIENT NAME: CARMEN RODRIGUEZ : 1965 GENDER: FEMALE VISIT DATE: 02/05/2021 DISCHARGE DATE: 02/05/21 1521 VISIT LOCKED DATE TIME: PHYSICIAN: ZAINAB ADAME RESOURCE: ZAINAB ADAME REASON FOR APPOINTMENT 1. POST TRIGGER POINT INJECTIONS TO BILATERAL NECK, BILATERAL SHOULDERS, AND BILATERAL THORACIC HISTORY OF PRESENT ILLNESS GENERAL: HERE FOR POSTPROCEDURE FOLLOW-UP. HAD TRIGGER POINT INJECTIONS TO NECK ON 01/22/2021. REPORTING GREATER THAN 80% REDUCTION IN PAIN THAT CONTINUES TODAY. REPORTING IMPROVED ACTIVITY TOLERANCE SINCE PROCEDURE. ATTENDING PHYSICAL THERAPY AND REPORTING IMPROVEMENT WITH PHYSICAL THERAPY. OVERALL DOING WELL. -. FALL RISK SCREENING: SCREENING : NO FALLS REPORTED IN THE LAST YEAR. PAIN SCREENING: PATIENT HAS A COMPLAINT OF ACUTE OR CHRONIC PAIN :YES LOCATION OF PAIN:NECK, BOTH SHOULDERS, MID BACK INTENSITY OF PAIN (SCALE OF 1 TO 10):4 WHAT DOES YOUR PAIN FEEL LIKE:CONTINOUS, TENDER, SORE DURATION:CONTINOUS, CONSTANT, ALL DAY PAIN IS INCREASED BY:ACTIVITIES PAIN IS DECREASED BY:OTHERS PHYSICAL THERAPY AND ICE NURSING NOTE: -. PAIN CENTER INTAKE QUESTIONS: DO YOU HAVE A HISTORY OF MRSA? :NO DO YOU TAKE A BLOOD THINNERS? :NO DO YOU HAVE ANY BLEEDING DISORDERS? :NO ANY NEW NUMBNESS OR WEAKNESS IN YOUR LEGS OR ARMS? :NO ANY PACEMAKER,DEFIBRILLATOR, OR DORSAL COLUMN STIMULATOR? :NO DO YOU HAVE ANY RASHES OR OPEN SORES? :NO ARE YOU ALLERGIC TO IV DYE? :NO ARE YOU DIABETIC? :NO ANY NEW PROBLEMS WITH YOUR MEDICATIONS? :NO HAVE YOU RECEIVED A VACCINE IN THE PAST 30 DAYS? :NO DO YOU PLAN TO RECEIVE A VACCINE IN THE NEXT 21 DAYS? :NO DO YOU NEED ANY PRESCRIPTION? :NO DO YOU TAKE ANY IMMUNOSUPPRESSIVE MEDICATIONS? :NO CURRENT MEDICATIONS TAKING HYDROCHLOROTHIAZIDE 25 MG TABLET 1 TABLET ORALLY DAILY TAKING IMITREX 6 MG/0.5ML SOLUTION SUBCUTANEOUS DIRECTED, NOTES: BEEN A WHILE TAKING [id number] 50-325-40 MG CAPSULE 1 CAPSULE NEEDED ORALLY EVERY 4 HRS TAKING MAXALT 10 MG TABLET 1 TABLET NEEDED ONE TIME ORALLY ONCE A DAY TAKING VENTOLIN HFA 108 (90 BASE) MCG/ACT AEROSOL SOLUTION 2 PUFFS NEEDED INHALATION EVERY 4 HRS TAKING DUONEB PRN TAKING TYLENOL SINUS SEVERE 5-325-200 MG TABLET 2 TABLETS NEEDED ORALLY EVERY 4 HRS TAKING SINGULAIR 10 MG TABLET 1 TABLET IN THE EVENING ORALLY ONCE A DAY TAKING BENZONATATE 100 MG CAPSULE 1 CAPSULE NEEDED ORALLY THREE TIMES A DAY TAKING DULOXETINE HCL 60 MG CAPSULE DELAYED RELEASE PARTICLES 1 CAPSULE ORALLY ONCE A DAY TAKING SYMBICORT 160-4.5 MCG/ACT AEROSOL 2 PUFFS INHALATION TWICE A DAY TAKING ROPINIROLE HCL 0.5 MG TABLET 1 TABLET 1 TO 3 HOURS BEFORE BEDTIME ORALLY ONCE A DAY TAKING FLUTICASONE PROPIONATE 50 MCG/ACT SUSPENSION 1 SPRAY IN EACH NOSTRIL NASALLY ONCE A DAY TAKING GABAPENTIN 300 MG CAPSULE 1 CAPSULE ORALLY TID TAKING MELOXICAM 15 MG TABLET 1 TABLET ORALLY ONCE A DAY TAKING ATORVASTATIN CALCIUM 10 MG TABLET 1 TABLET ORALLY ONCE A DAY TAKING DIVALPROEX SODIUM 500 MG TABLET DELAYED RELEASE ORALLY BID TAKING TIZANIDINE HCL 4 MG TABLET 1 TABLET NEEDED ORALLY BEFORE BEDTIME TAKING DEPAKOTE 250 MG TABLET DELAYED RELEASE ORALLY TWICE A DAY TAKING NASONEX 50 MCG/ACT SUSPENSION 2 SPRAYS IN EACH NOSTRIL NASALLY ONCE A DAY PRN, NOTES: NONE RECENT TAKING AIMOVIG 70 MG/ML SOLUTION AUTO-INJECTOR DIRECTED SUBCUTANEOUS NOT-TAKING FLUOXETINE HCL 40 MG CAPSULE 1 CAPSULE ORALLY ONCE A DAY NOT-TAKING NAPROXEN 375 MG TABLET 1 TABLET WITH FOOD OR MILK NEEDED ORALLY EVERY 12 HRS NOT-TAKING ONDANSETRON HCL 4 MG TABLET 1 TABLET ORALLY ONCE A DAY NOT-TAKING TAMSULOSIN HCL 0.4 MG CAPSULE 1 CAPSULE ORALLY ONCE A DAY NOT-TAKING TOPIRAMATE 25 MG TABLET 1 TABLET ORALLY ONCE A DAY MEDICATION LIST REVIEWED AND RECONCILED WITH THE PATIENT PAST MEDICAL HISTORY MYALGIA THORACIC BACK PAIN LUMBAR FACET ARTHROPATHY SPONDYLOSIS WITHOUT MYELOPATHY OR RADICULOPATHY, LUMBAR REGION SCAR NEUROMA SCAR CONDITIONS AND FIBROSIS OF SKIN SACROILIITIS, NOT ELSEWHERE CLASSIFIED SACROILIITIS LUMBAR BACK PAIN WITH RADICULOPATHY AFFECTING RIGHT LOWER EXTREMITY INTERVERTEBRAL DISC DISORDER WITH RADICULOPATHY OF LUMBAR REGION URGE INCONTINENCE STRESS INCONTINENCE (FEMALE) (MALE) ALLERGIES MILK: DYSPNEA - ALLERGY ENVIRONMENTAL: DYSPNEA - ALLERGY TOPAMAX: JOINT ACHES - SIDE EFFECTS LEVAQUIN: ANAPHYLAXIS - ALLERGY TRAMADOL HCL: NAUSEA/VOMITING - SIDE EFFECTS [id number] (BOWEL PREP): NAUSEA/VOMITING - SIDE EFFECTS SOCIAL HISTORY GENERAL: TOBACCO USE ARE YOU A:NONSMOKER LATEX QUESTIONNAIRE LATEX ALLERGY : HAVE YOU EVER DEVELOPED ANY TYPE OF REACTION AFTER HANDLING LATEX PRODUCTS SUCH RUBBER GLOVES, CONDOMS, DIAPHRAGMS, BALLOONS, SOCKS, OR UNDERWEAR?NO LATEX ALLERGY : HAVE YOU EVER DEVELOPED ANY TYPE OF REACTION DURING OR AFTER DENTAL APPOINTMENT, VAGINAL/RECTAL EXAMINATION, SURGICAL PROCEDURE, OR ANY OTHER EXPOSURE?NO LATEX RISK : HAVE YOU EVER HAD ANY DIFFICULTY BREATHING OR HIVES AFTER EATING OR HANDLING ANY FRUITS, OR VEGETABLES; SUCH KIWI, BANANAS, STONE FRUITS, OR CHESTNUTSNO LATEX RISK : DO YOU HAVE A PREVIOUS PERSONAL HISTORY OF MORE THAN NINE SURGERIES, SPINA BIFIDA, OR REPEATED CATHERIZATIONS? NO LATEX RISK : ARE YOU FREQUENTLY EXPOSED TO LATEX PRODUCTS IN YOUR OCCUPATION?NO DATE ASKED : 02/05/2021 ALCOHOL USE: YES, BEER LAST MONTH. ALCOHOL SCREENING DID YOU HAVE A DRINK CONTAINING ALCOHOL IN THE PAST YEAR?NO POINTS0 INTERPRETATIONNEGATIVE RECREATIONAL DRUG USE DRUG USE?NO CAFFEINE CAFFEINE USE?YES HOW OFTEN AND HOW MUCH? 1 COKE/DAY JAINISM [id number] NONE LANGUAGE LANGUAGES SPOKEN:DJIB[place]IAN EDUCATION LEVEL OF EDUCATION:NOT FINISHED COLLEGE LEARNING BARRIERS / SPECIAL NEEDS CHANGE FROM LAST VISIT?NO BARRIERS TO LEARNING?NO HEARING IMPAIRED?NO VISION IMPAIRED?YES :CORRECTIVE LENSES COGNITIVELY IMPAIRED?NO READINESS TO LEARN?YES LEARNING PREFERENCES?NO LEARNING CAPABILITIES PRESENT?YES EMOTIONAL BARRIERS?NO SPECIAL DEVICES?NO PAINT GRINDER NEEDED?NO DOMESTIC VIOLENCE DO YOU FEEL SAFE IN YOUR ENVIRONMENT?YES DIET: REGULAR. EXERCISE: TREADMILL 30 MINS-1 HOURS 3-4X/WK. OTHERS AT HOME: SPOUSE, CHILD, OTHER RELATIVE. - PFS REFERRAL NEEDED?NO CLERGY REFERRAL NEEDED?NO PUBLIC HEALTH REFERRAL NEEDED?NO WAS THE PROVIDER NOTIFIED OF ANY PERTINENT INFO? N/A HAS THE PATIENT BEEN EDUCATED REGARDING HIS/HER PLAN OF CARE?YES HAS THE PATIENT BEEN EDUCATED REGARDING PAIN, THE RISK FOR PAIN, THE IMPORTANCE OF EFFECTIVE PAIN MANAGEMENT, AND THE PAIN ASSESSMENT PROCESS?YES ADVANCE DIRECTIVE ADVANCE DIRECTIVE DISCUSSED WITH PATIENT:YES 03/07/19 PT DOESN'T HAVE ANY ADVANCED DIRECTIVES AND DECLINED INFORMATION ON HCP AT THIS TIME. AD REVIEW OF SYSTEMS CONSTITUTIONAL: ANY RECENT FEVER NO . CHILLS NO . WEIGHT CHANGE OF UNKNOWN REASONS NO . GASTROENTEROLOGY: NEW UNEXPLAINABLE CHANGES IN BOWEL CONTROL NO . CONSTIPATION NO . GENITOURINARY: ANY NEW CHANGE IN BLADDER CONTROL? NO . NEUROLOGY: NEW ONSET DIZZINESS OR NEUROLOGICAL CHANGES NOT MENTIONED NO . NEW NUMBNESS OR PAIN PATTERNS NOT MENTIONED AND PERTINENT TO TODAY'S VISIT NO . CARDIOLOGY: NEW CHEST PRESSURE NO . PATIENT DENIES NO . RESPIRATORY: UNEXPLAINABLE COUGH NO . NEW SHORTNESS OF BREATH NO . VITAL SIGNS WT 197 LBS, HT 62 IN, BMI 36.03 INDEX, BP 162/82 MM HG, HR 92 /MIN, RR 18 /MIN, TEMP 96.2 F, OXYGEN SAT % 97%, SAFE IN ENV? (Y/N) YEST.KARTHIK DANIELLE. EXAMINATION GENERAL EXAMINATION: GENERALAWAKE,ALERT ,PLEASANT . PSYCHAFFECT NORMAL . LUNGS:LUNG JURADO ARE CLEAR TO AUSCULTATION BILATERALLY. GOOD MOVEMENT OF AIR . HEART:S1, S2 IN A REGULAR RATE AND RHYTHM. NO SIGNIFICANT MURMURS, RUBS OR GALLOPS NOTED . ASSESSMENTS OTHER CHRONIC PAIN - G89.29 (PRIMARY) MYALGIA, OTHER SITE - M79.18 TREATMENT OTHER CHRONIC PAIN PAIN PROCEDURE LOGDATE OF PROCEDURE1PROCEDURE:TRIGGER POINT INJECTION BILATERAL NECK, BILATERAL SHOULDERS AND BILATERAL THORACICAMOUNT OF PRE SEDATEVALIUM 5MG, OXYCODONE 5MGRESULT:>80% REDUCTION IN PAIN AND IMPROVED ACTIVITY TOLERANCE CONTINUES TODAY PROCEDURE CODES FA211 ESTABILISHED PATIENT [facility] CHARGE DISPOSITION & COMMUNICATION FOLLOW UP 3 MONTHS (REASON: F/U NECK PAIN/RESPONDS WELL TO TPI AND PT) ELECTRONICALLY SIGNED BY JULIUS JASSO ON 02/06/2021 AT 01:26 PM EDT DISCLAIMER : THIS IS A VISIT SUMMARY EXTRACTED FROM THE [employer] CHART. IT IS NOT A COPY OF THE [employer] PROGRESS NOTE. LUIS F
== END ==
LOC: M PAIN 14:45
PROVIDERS: ATTEND Nurse Practitioner Family
DX: M79.18 Myalgia, other site (principal); Z88.5 Allergy status to narcotic agent; Z88.8 Allergy status to other drugs, medicaments and biological substances; Z91.011 Allergy to milk products; Z79.899 Other long term (current) drug therapy
CPT/HCPCS: G0463; J3301; Q9967

== ENCOUNTER 2021-12-18 11:30 | Outpatient (RCR) | payer OTHER ==
[~2021-12-18 11:30] MED LIST changes: -BUPIVACAINE HCL 0.25% 30ML VIAL As Ordered ONE; +EXCETAB32 PO; -EXCETAB33 PO; -ISOVUE-M 300 61% 15ML VIAL As Ordered ONE; -LIDOCAINE 1% SDV 30ML VIAL As Ordered ONE; -MONT10TA10 PO; +MONT10TA97 PO; -SCOP1PAT2; +TRAN1DIS4; -TRIAMCINOLONE ACETONIDE SUSP 40 MG/ML VIAL (J3301) As Ordered ONE; -diazePAM 5MG TABLET As Ordered ONE; -oxyCODONE 5MG TAB As Ordered ONE
== END 2021-12-24 ==
LOC: M PT 11:30
PROVIDERS: ATTEND Nurse Practitioner Family
DX: M25.512 Pain in left shoulder (principal)

== ENCOUNTER 2022-01-09 11:29 | Outpatient (RCR) | payer OTHER | END 2022-01-23 | LOC: M PT 11:29 | PROVIDERS: ATTEND Nurse Practitioner Family | DX: M25.512 Pain in left shoulder (principal) ==

== ENCOUNTER 2022-08-21 12:07 | Outpatient (RCR) | payer OTHER | END 2022-08-26 | LOC: M PT 12:07 | PROVIDERS: ATTEND Orthopaedic Surgery Sports Medicine | DX: M25.512 Pain in left shoulder (principal) ==

== ENCOUNTER 2022-10-20 16:45 | Outpatient (RCR) | payer OTHER | END 2022-10-24 | LOC: M PT 16:45 | PROVIDERS: ATTEND Physician Assistant Medical | DX: M25.512 Pain in left shoulder (principal) ==

== ENCOUNTER 2022-11-13 15:15 | Outpatient (RCR) | payer OTHER | END 2022-11-23 | LOC: M PT 15:15 | PROVIDERS: ATTEND Physician Assistant Medical | DX: M25.512 Pain in left shoulder (principal) ==

== ENCOUNTER → 2022-12-24 | Outpatient (RCR) | payer OTHER | LOC: M PT 11-26 12:13 | PROVIDERS: ATTEND Physician Assistant Medical | DX: M25.512 Pain in left shoulder (principal); Z98.890 Other specified postprocedural states ==

== ENCOUNTER 2024-03-24 14:59 | Inpatient (IN) | payer OTHER, MEDICAID ==
[~2024-03-24] VITALS: Ht 157.5 cm; Wt 84.4 kg
[~2024-03-24 14:59] MED LIST changes: -ROPI0.5T3 PO; +ROPI0.5T33 PO
[2024-03-24] MEDS ORDERED: ISOVUE-370 76% 100ML VIAL As Ordered ONE (16:03)
[2024-03-24] MEDS: ONDANSETRON 4MG 2ML VIAL IV ONE (16:05)
[2024-03-24] MEDS: MORPHINE 2 MG/ML 1ML VIAL IV ONE (16:05)
[2024-03-24 16:07] LABS: BASO % 0.2 % (0.0-1.0); EOS # 0.1 10^3/uL (0.0-0.5); EOS % 0.3 % (0.0-3.0); HEMATOCRIT 37.9 % (36.0-47.0); LYMPH % 11.9 % (24.0-44.0); MEAN CORPUSCULAR HEMOGLOBIN 31.2 pg (27.0-33.0); MEAN CORPUSCULAR HGB CONC 34.3 g/dl (32.0-36.5); MEAN CORPUSCULAR VOLUME 90.9 fl (80.0-96.0); MONO # 1.6 10^3/uL (0.0-0.8); MONO % 9.9 % (2.0-8.0); NEUTROPHILS # 12.8 10^3/uL (1.5-8.5); NEUTROPHILS % 77.2 % (36.0-66.0); PLATELET COUNT, AUTOMATED 268 10^3/uL (150-450); RED BLOOD COUNT 4.17 10^6/uL (4.00-5.40); WHITE BLOOD COUNT 16.5 10^3/uL (4.0-10.0)
[2024-03-24 16:30] LABS: LIPASE 23 U/L (12-53)
[2024-03-24 16:33] LABS: ALBUMIN 3.1 G/DL (3.2-5.2); ALKALINE PHOSPHATASE 55 U/L (46-116); ALT/SGPT 12 U/L (7.0-40); AST/SGOT < 8 U/L (<34); BILIRUBIN,DIRECT 0.4 MG/DL (<0.4); BILIRUBIN,TOTAL 1.3 MG/DL (0.3-1.2)
[2024-03-24] MEDS ORDERED: MAALOX 30 ML SUSP *UDC PO PRN (17:10)
[2024-03-24] MEDS ORDERED: MOM 30ML SUSPENSION UDC PO PRN (17:10)
[2024-03-24] MEDS: PIPERACILLIN/TAZOBACTAM SOD 4.5 GM in D5W MINI-BAG PLUS 50 ML IV ONE (17:18)
[2024-03-24 17:43] LABS: PROCALCITONIN <0.04 ng/ml
[2024-03-24] MEDS ORDERED: METO1TAB7 PO (18:11)
[2024-03-24] MEDS ORDERED: METH10TA PO (18:11)
[2024-03-24] MEDS ORDERED: DULO1CAP6 PO (18:11)
[2024-03-24] MEDS ORDERED: ATOR1TAB19 PO (18:11)
[2024-03-24] MEDS ORDERED: SEMA1PEN2 INJ (18:11)
[2024-03-24] MEDS ORDERED: FURO20TA2 PO (18:11)
[2024-03-24] MEDS ORDERED: VIBE75TA PO (18:11)
[2024-03-24] MEDS ORDERED: LOSA50TA28 PO (18:12)
[2024-03-24] MEDS: NS 1,000 ML IV SCH (18:25)
[2024-03-24] MEDS ORDERED: HOME MED LIST COMPLETE! XX SCH (18:25)
[2024-03-24] MEDS ORDERED: FIORICET TAB PO PRN (18:35)
[2024-03-24] MEDS ORDERED: ALBUTEROL 90 MCG/ACT 8GM HFA INHALER INH PRN (18:35)
[2024-03-24] MEDS ORDERED: RIZATRIPTAN MLT 10 MG TAB SL PRN (18:35)
[2024-03-24] MEDS ORDERED: SUGAMMADEX SODIUM 500 MG/5 ML VIAL (BRIDION) As Ordered ONE (19:44)
[2024-03-24] MEDS ORDERED: ONDANSETRON 4MG 2ML VIAL As Ordered ONE (19:44)
[2024-03-24] MEDS ORDERED: METOCLOPRAMIDE INJ 10MG/2ML VIAL As Ordered ONE (19:44)
[2024-03-24] MEDS ORDERED: fentaNYL 100 MCG/2 ML INJECTION As Ordered ONE (19:44)
[2024-03-24] MEDS ORDERED: MIDAZOLAM INJ 2MG/2ML VIAL As Ordered ONE (19:44)
[2024-03-24] MEDS ORDERED: KETOROLAC 60MG 2ML VIAL As Ordered ONE (19:44)
[2024-03-24] MEDS ORDERED: ROCURONIUM BROMIDE 50MG/5ML VIAL As Ordered ONE (19:44)
[2024-03-24] MEDS ORDERED: propofoL 200 MG/20 ML VIAL As Ordered ONE (19:44)
[2024-03-24] MEDS ORDERED: ACETAMINOPHEN 1000MG 100ML IV BAG As Ordered ONE (19:44)
[2024-03-24] MEDS ORDERED: LIDOCAINE 2% 100MG/5ML SDV (FOR ANES.) As Ordered ONE (19:44)
[2024-03-24] MEDS ORDERED: ONDANSETRON 4MG 2ML VIAL IV PRN ×2 (20:00→20:35)
[2024-03-24] MEDS: LR 1,000 ML IV SCH (20:35)
[2024-03-24] MEDS ORDERED: HYDROMORPHONE HCL 0.5 MG/ 0.5 ML SYRINGE IV PRN (20:35)
[2024-03-24] MEDS ORDERED: oxyCODONE 5MG TAB PO PRN (20:35)
[2024-03-24] MEDS ORDERED: fentaNYL 100 MCG/2 ML INJECTION IV PRN (20:35)
[2024-03-24 21:30] VITALS: BP 121/57; TEMP 98.6; O2SAT 95
[2024-03-24 22:00] VITALS: BP 116/58; TEMP 98.5; O2SAT 94
[2024-03-24] MEDS: MORPHINE 4 MG/ML 1ML VIAL IV PRN (22:04)
[2024-03-24] MEDS: DOCUSATE SODIUM 100MG CAPSULE PO SCH (22:14)
[2024-03-24] MEDS: MONTELUKAST 10 MG TAB PO SCH (22:15)
[2024-03-24 22:30] VITALS: BP 120/60; TEMP 98; O2SAT 94
[2024-03-24 23:30] VITALS: BP 119/65; TEMP 97; O2SAT 95
[2024-03-25] VITALS (15 sets, daily range): BP systolic 92–120; BP diastolic 50–69; TEMP 97–97.7; O2SAT 95–100
[2024-03-25] MEDS: PIPERACILLIN/TAZOBACTAM SOD 3.375 GM in D5W MINI-BAG PLUS 50 ML IV SCH (00:07)
[2024-03-25] MEDS ORDERED: MORPHINE 2 MG/ML 1ML VIAL IV PRN (05:55)
[2024-03-25 06:03] LABS: BASO % 0.1 % (0.0-1.0); HEMATOCRIT 37.2 % (36.0-47.0); HEMOGLOBIN 12.4 g/dl (12.0-15.5); LYMPH # 0.5 10^3/uL (1.5-5.0); LYMPH % 2.8 % (24.0-44.0); MEAN CORPUSCULAR HEMOGLOBIN 30.7 pg (27.0-33.0); MEAN CORPUSCULAR HGB CONC 33.3 g/dl (32.0-36.5); MEAN CORPUSCULAR VOLUME 92.1 fl (80.0-96.0); MONO # 0.9 10^3/uL (0.0-0.8); NEUTROPHILS % 91.4 % (36.0-66.0); PLATELET COUNT, AUTOMATED 241 10^3/uL (150-450); RED BLOOD COUNT 4.04 10^6/uL (4.00-5.40); WHITE BLOOD COUNT 18.6 10^3/uL (4.0-10.0)
[2024-03-25 06:23] LABS: ALBUMIN 2.7 G/DL (3.2-5.2); ALKALINE PHOSPHATASE 50 U/L (46-116); ALT/SGPT 11 U/L (7.0-40); AST/SGOT < 8 U/L (<34); BILIRUBIN,TOTAL 1.5 MG/DL (0.3-1.2); BLOOD UREA NITROGEN 9 MG/DL (9-23); CALCIUM LEVEL 8.2 MG/DL (8.5-10.1); CARBON DIOXIDE LEVEL 24 MMOL/L (20-31); CHLORIDE LEVEL 109 MMOL/L (98-107); CREATININE FOR GFR 0.66 MG/DL (0.55-1.30); GLOMERULAR FILTRATION RATE > 60.0 (>51); GLUCOSE, FASTING 170 MG/DL (60-100); MAGNESIUM LEVEL 2.2 MG/DL (1.8-2.4); POTASSIUM SERUM 4.2 MMOL/L (3.5-5.1); SODIUM LEVEL 138 MMOL/L (136-145); TOTAL PROTEIN 5.6 G/DL (5.7-8.2)
[2024-03-25] MEDS: DULoxetine 30MG CAPSULE (CYMBALTA) PO SCH (08:27)
[2024-03-25] MEDS: ATORVASTATIN 10 MG TAB PO SCH (08:27)
[2024-03-25] MEDS: ENOXAPARIN 40MG/0.4ML SYRINGE (J1650 PER 10MG) SC SCH (08:31)
[2024-03-25] MEDS: METOPROLOL SUCC (TopROL XL) 50MG **XL** TAB PO SCH (08:40)
[2024-03-25] MEDS: LOSARTAN 50MG TABLET PO SCH (08:40)
[2024-03-25] MEDS: FUROSEMIDE 20 MG TAB PO SCH (09:09)
[2024-03-25] MEDS: PERCOCET 5MG/325MG TAB PO PRN ×2 (09:11→13:28)
[2024-03-25] MEDS: IPRATROPIUM 0.5MG/ALBUTEROL 2.5MG INH SOL UD 3ML (DUONEB) INH PRN (09:56)
[2024-03-25] MEDS: GEMTESA 75 MG PO SCH (10:43)
[2024-03-25] MEDS: LR 1,000 ML IV ONE (13:51)
[2024-03-25] MEDS: MORPHINE 2 MG/ML 1ML VIAL IV PRN (16:37)
[2024-03-26 00:20] VITALS: O2SAT 95
[2024-03-26 04:45] VITALS: BP 107/60; TEMP 97.7; O2SAT 94
[2024-03-26 08:15] LABS: BASO % 0.1 % (0.0-1.0); EOS % 0.3 % (0.0-3.0); HEMATOCRIT 30.5 % (36.0-47.0); LYMPH # 1.4 10^3/uL (1.5-5.0); LYMPH % 11.6 % (24.0-44.0); MEAN CORPUSCULAR HEMOGLOBIN 30.9 pg (27.0-33.0); MEAN CORPUSCULAR HGB CONC 32.8 g/dl (32.0-36.5); MEAN CORPUSCULAR VOLUME 94.1 fl (80.0-96.0); MONO # 0.8 10^3/uL (0.0-0.8); MONO % 6.7 % (2.0-8.0); NEUTROPHILS # 9.6 10^3/uL (1.5-8.5); NEUTROPHILS % 79.4 % (36.0-66.0); PLATELET COUNT, AUTOMATED 222 10^3/uL (150-450); RED BLOOD COUNT 3.24 10^6/uL (4.00-5.40); WHITE BLOOD COUNT 12.1 10^3/uL (4.0-10.0)
[2024-03-26 08:52] LABS: ALBUMIN 2.2 G/DL (3.2-5.2); ALKALINE PHOSPHATASE 46 U/L (46-116); ALT/SGPT 10 U/L (7.0-40); AST/SGOT < 8 U/L (<34); BILIRUBIN,TOTAL 0.4 MG/DL (0.3-1.2); BLOOD UREA NITROGEN 13 MG/DL (9-23); CALCIUM LEVEL 7.8 MG/DL (8.5-10.1); CARBON DIOXIDE LEVEL 24 MMOL/L (20-31); CHLORIDE LEVEL 112 MMOL/L (98-107); CREATININE FOR GFR 0.63 MG/DL (0.55-1.30); GLOMERULAR FILTRATION RATE > 60.0 (>51); GLUCOSE, FASTING 129 MG/DL (60-100); MAGNESIUM LEVEL 2.2 MG/DL (1.8-2.4); POTASSIUM SERUM 4.2 MMOL/L (3.5-5.1); SODIUM LEVEL 141 MMOL/L (136-145)
[2024-03-26 12:00] VITALS: BP 138/68; TEMP 97.5; O2SAT 94
[2024-03-26] MEDS ORDERED: ACETAMINOPH W/CODEINE #3 TAB UD PO PRN (15:05)
[2024-03-26 21:36] VITALS: BP 137/67; TEMP 98.1; O2SAT 95
[2024-03-26] MEDS: ACETAMINOPH W/CODEINE #3 TAB UD PO PRN (21:36)
[2024-03-26 23:51] VITALS: O2SAT 94
[2024-03-27 04:28] VITALS: BP 137/69; TEMP 97.7; O2SAT 95
[2024-03-27 06:29] LABS: BASO % 0.1 % (0.0-1.0); EOS # 0.2 10^3/uL (0.0-0.5); HEMATOCRIT 30.8 % (36.0-47.0); LYMPH # 2.9 10^3/uL (1.5-5.0); LYMPH % 34.4 % (24.0-44.0); MEAN CORPUSCULAR HEMOGLOBIN 30.5 pg (27.0-33.0); MEAN CORPUSCULAR HGB CONC 32.5 g/dl (32.0-36.5); MEAN CORPUSCULAR VOLUME 93.9 fl (80.0-96.0); MONO # 0.7 10^3/uL (0.0-0.8); MONO % 8.8 % (2.0-8.0); NEUTROPHILS # 4.6 10^3/uL (1.5-8.5); NEUTROPHILS % 54.3 % (36.0-66.0); PLATELET COUNT, AUTOMATED 227 10^3/uL (150-450); RED BLOOD COUNT 3.28 10^6/uL (4.00-5.40); WHITE BLOOD COUNT 8.5 10^3/uL (4.0-10.0)
[2024-03-27 06:59] LABS: ALBUMIN 2.1 G/DL (3.2-5.2); ALKALINE PHOSPHATASE 43 U/L (46-116); ALT/SGPT 12 U/L (7.0-40); AST/SGOT < 8 U/L (<34); BILIRUBIN,TOTAL 0.3 MG/DL (0.3-1.2); BLOOD UREA NITROGEN 14 MG/DL (9-23); CALCIUM LEVEL 7.7 MG/DL (8.5-10.1); CARBON DIOXIDE LEVEL 25 MMOL/L (20-31); CHLORIDE LEVEL 113 MMOL/L (98-107); CREATININE FOR GFR 0.69 MG/DL (0.55-1.30); GLOMERULAR FILTRATION RATE > 60.0 (>51); GLUCOSE, FASTING 163 MG/DL (60-100); MAGNESIUM LEVEL 1.9 MG/DL (1.8-2.4); POTASSIUM SERUM 3.5 MMOL/L (3.5-5.1); SODIUM LEVEL 143 MMOL/L (136-145); TOTAL PROTEIN 4.8 G/DL (5.7-8.2)
[2024-03-27] MEDS: ACETAMINOPHEN TAB 650MG DOSE (2X325MG) PO PRN (09:14)
[2024-03-27] MEDS ORDERED: ACET-716 PO (09:21)
[2024-03-27] MEDS ORDERED: METR-265 PO (09:28)
[2024-03-27] MEDS ORDERED: CEFD1CAP9 PO (09:28)
[2024-03-27] MEDS ORDERED: PROBCAP14 PO (09:30)
[2024-03-27 12:00] VITALS: BP 139/53; TEMP 97.7; O2SAT 97
== END 2024-03-27 16:00 | disposition home or self-care (01) | DRG 225 ==
LOC: M ED 14:59 → M ED INP 17:10 → M MS4PR 21:25 → M MSPAV 03-25 17:56
PROVIDERS: ADMIT Internal Medicine; ATTEND Student in an Organized Health Care Education/Training Program
PROC: 8E0W4CZ Robotic Assisted Procedure of Trunk Region, Percutaneous Endoscopic Approach (ICD-10-PCS; principal; 2024-03-24 19:00)
PROC: 0DTJ4ZZ Resection of Appendix, Percutaneous Endoscopic Approach (ICD-10-PCS; principal; 2024-03-24 19:00)
DX: K35.80 Unspecified acute appendicitis (principal); I10 Essential (primary) hypertension; J45.909 Unspecified asthma, uncomplicated; G43.909 Migraine, unspecified, not intractable, without status migrainosus; M54.9 Dorsalgia, unspecified; G89.29 Other chronic pain; M79.7 Fibromyalgia; I16.0 Hypertensive urgency; E05.00 Thyrotoxicosis with diffuse goiter without thyrotoxic crisis or storm; E78.5 Hyperlipidemia, unspecified; Z79.899 Other long term (current) drug therapy; Z88.1 Allergy status to other antibiotic agents; Z88.8 Allergy status to other drugs, medicaments and biological substances; I95.9 Hypotension, unspecified; N32.81 Overactive bladder